=== PATIENT | female | born 1975 | race Caucasian/White ===

== ENCOUNTER → 2016-11-10 | Outpatient (CLI) | payer OTHER ==
[~2016-11-10] MED LIST: ALBUAER2 INH; ATV1 PO; BUPR150T7 PO; CLBCRM30 EXT; CYAN500T PO; ERGO500037 PO; FERR1TAB13 PO; HYDR0.5T PO; MINO1TAB PO; PRLSR20 PO; SULF1TAB92 PO; VENL150C56 PO
--- NOTE | 2016-11-11 05:38 | PAP/PSG TECHNICIAN REPORT ---
[facility] Automobile Mechanic Radiator Polysomnogram Report Study name: None Report date: 11/11/2016 Study date: 11/10/2016 Referring Physician: Jackelyn Mantilla M.D. Name: LOLY SOL Interpreting Physician: Giovanna Mantilla M.D. Date of : 1975 Automobile Mechanic Radiator: GAVI Mccarthy. Sex: Female Age: 41 StudyType: PSG Weight: 401 lbs Height: 41 years, Height 5' 9" Neck Circum:16.25inches BMI: 59.21 Medications: Benadryl 25mg, Vit D, Prilosec 20mg, Feosol 325mg, Minocycline HCl 50mg, Triamcinolole cream, Plaquenil 200mg, Wellbutrin XL 150mg, Effexor XR 150mg, Ativan 0.5mg, Vit B-a2 Patient History Study started on room air with ETCO2 monitoring in room #6. 41 yr old female here tonight for a possible split psg. She had a sleep study done in 2010 which did not show apnea. She has gained weight since then. She snores and does not feel rested. Her ESS=13/24. Her neck circ=16.25inches. Parameters Monitored NPSG: E1-M2, E2-M1, Fp1-M2, Fp2-M1, F3-M2, F4-M2, F4-M1, C3-M2, C4-M2, C4-M1, O1-M2, O2-M2, O2-M1, T3-M2, T4-M1, P3-M2, P4-M1, CHIN1, CHIN2, HR, EKG, Legs, PFLOW, SNOR, FLOW, CFLOW, Tidal Volume, THOR, ABDO, SpO2, PLTH, CPRESS, ETCO2 Wave, ETCO2, pH Sleep Architecture Sleep Stages Time at Lights Off 9:43:33 PM STAGES Time (min.) TST (%) Time at Lights On 5:18:33 AM Wake 107.0 -- Total Recording Time (TRT) 455.00 min. N1 23.5 7 Total Sleep Period (TSP) 414.5 min. N2 228.5 66 Total Sleep Time (TST) 348.0min. N3 45.0 13 Awake Time 107.0 min. REM 51.0 15 Wake after Sleep Onset 76.5 min. Sleep Efficiency (SE) 76 % Sleep Onset Latency (THEODORE) 30.5 min. Number of Stage 1 Shifts None Awakenings 34 Stage Changes 119 Number of REM periods 7 REM 51.0 15 REM Latency 207.5 min. NREM 297.0 85 Body Position Analysis Supine Right Left Side Prone Vertical Total Sleep Time (min.) 188.9 21.5 187.9 209.38 0.0 0.0 Total Sleep Time (%) 40% 6% 54% 60 0% N/A% Total Sleep Time REM (min.) 36.0 0.0 15.0 None 0.0 0.0 Total Sleep Time NREM (min.) 102.6 21.5 172.9 None 0.0 0.0 Intermittent Wake (min.) 50.3 8.4 48.2 None 0.0 0.0 Total Sleep Period (%) 40% None None None None None Arousals Myoclonus (PLM) * Events Count Index Events Count Index Spontaneous 18 3 Events Awake (PLMW) 125 70.1 Respiratory 4 0.7 Events Asleep w/ Arousal (PLMA) 21 3.6 PLM 19 4 Events Asleep w/o Arousal (PLMS) 117 20.2 Snoring 5 1 Total Asleep 138 23.8 Total 46 8 Total 263 35 Respiratory Analysis * CA OA MA CH H RERA Total Count 0 0 0 0 19 0 19 Index 0.0 0.0 0.0 0 3.3 0 3.3 Mean Duration 0.0 0.0 0.0 0.00 23.3 0.0 23.3 Longest Duration 0.0 0.0 0.0 0.00 0.0 0.0 49.8 Respiratory Event Summary Total Supine ~Supine Right Left Prone REM NREM Apneas Count 0 0 0 0 0 N/A 0 0 Index 0.0 0 0 0.0 0.0 N/A 0 0 Hypopneas (4% Desat) Count 19 17 2 0 2 N/A 13 6 Index 3.3 7.4 1 0.0 0.6 N/A 15.3 1.2 Apneas & All Hypopneas Count 19 17 2 0 2 N/A 13 6 Index 3.3 7 1 0 1 N/A 15.3 1.2 Respiratory Events (Online Editor+All Hyp+RERA) Count 19 17 2 0 2 N/A 13 6 Index 3.3 7 1 0.0 0.6 N/A 15.3 1.2 Respiratory Related Arousal Count 4 17 1 0 1 N/A 2 2 Index 0.7 1 0 0 0 N/A 2 0 Snoring Analysis Supine Right Left Prone REM NREM Total Snore duration 21.7 min Snores count 505 16 719 N/A 107 1,133 1,240 Snore mean duration 1.0 Sec Snores index 219 45 230 N/A 125.9 228.9 213.8 TST with snoring (%) 6.2% SpO2 Analysis Total REM NREM Awake <50% 0.0 min. 0.0 min. 0.0 min. 0.0 min. 51 - 60% 0.0 min. 0.0 min. 0.0 min. 0.0 min. 61 - 70% 0.0 min. 0.0 min. 0.0 min. 0.0 min. 71 - 80% 0.0 min. 0.0 min. 0.0 min. 0.0 min. 81 - 90% 4.5 min. 3.6 min. 0.3 min. 0.6 min. 91 - 100% 448.0 min. 47.4 min. 296.4 min. 104.3 min. Average 95 94 95 96 Minimum SpO2 85 86 89 85 Desaturation Event Index 7.3 24.7 2.6 12.9 # Desat. Events below 89% 9 8 N/A 1 Time(%) with Saturation below 89% 0.3 0.3 0.0 0.0 Time(min.) with Saturation below 89% 1.5 1.4 0.0 0.1 Heart Rate Analysis End Tidal CO2 Analysis Min (bpm) Max (bpm) Average (bpm) TSP (mins) % of TSP Awake 67 127 80 Above 55 mmHg 11.8 3.4 NREM 68 92 77 50-55 mmHg 290.6 83.5 REM 66 85 75 45-50 mmHg 45.5 13.1 Overall 66 92 76 40-45 mmHg 0.1 0.0 35-40 mmHg 0.0 0.0 30-35 mmHg 0.0 0.0 Average ETCO2 0.0 Supplemental O2 Values Minimum O2 level: None Value Start Time End Time Automobile Mechanic Radiator Comments Mrs. Sol slept in the right, left and supine positions. No cardiac arrhythmia noted. Some leg movements were noted. No bruxism noted. Snoring was noted and scored as 2 on a scale of 1 through 5. (0=no snoring, 5=snoring loud enough to be heard through a closed door or down the [address] way) She did not use the restroom during the night. She stated that she slept about the same as usual. The final report will be interpreted and signed by a sleep physician. The completed physician report will then be placed in the patient medical record. Therapy (cm H2O) 0 TIB (min.) 455.0 TST (min.) 348.0 Sleep Onset (min.) 30.5 REM Onset From Sleep (min.) 207.5 Sleep Efficiency % 76 Wakefulness (%) 24 Wakefulness (min.) 107.0 NREM 1 (%) 7 NREM 1 (min.) 23.5 NREM 2 (%) 66 NREM 2 (min.) 228.5 NREM 3 (%) 13 NREM 3 (min.) 45.0 REM (%) 15 REM (min.) 51.0 # Arousals 46 Arousal Index 8 # Snore 1,240 Snore Index 213.8 AHI 3.3 AHI Supine 7 AHI Non-Supine 1 NREM AHI 1.2 REM AHI 15.3 RDI 3.3 # Obstructive Apnea 0 # Central Apnea 0 # Mixed Apnea 0 # Hypopneas 19 RERAs 0 Total Respiratory Events 23 Time Below SpO2 89% (min.) 1.4 Mean NREM SpO2 (%) 95 Mean REM SpO2 (%) 94 Mean Sleep SpO2 (%) 95 Min NREM SpO2 (%) 89 Min REM SpO2 (%) 86 Position Supine (min.) 188.9 Position Non-supine (min.) 209.4 LM Index Sleep 23.8 LM Index NREM 21.2 LM Index REM 38.8 Mean Heart Rate (bpm) 76 Min Heart Rate (bpm) 66
--- NOTE | 2016-11-11 17:12 | POLYSOMNOGRAPH REPORT ---
REFERRING PERSON: Dr. Tarsha Mantilla. TATTOO ARTIST: Dominique Story. Ms. Slo is a 42-year-old female sent to the sleep lab for a possible split night sleep study. She had a sleep study performed in 2010, which did not show sleep apnea. She has gained significant amount of weight since that time. She does snore and does not feel rested upon awakening. Her [place] sleepiness scale score on the evening of this study is 13. BMI is a 59.21. Following the technical and digital specifications of the [place] [employer] (AASM) a standard diagnostic polysomnogram was performed monitoring EEG, EOG, EMG (chin and leg deviations), oxygen saturation, body position, digital video, respiratory effort and airflow. The sleep Stage and event scoring was based on the AASM Manual for the Scoring of Sleep and Associated Events 2007 edition. Apneas are defined as a drop in the peak thermal sensor excursion by >90% of baseline for at least 10 seconds. Hypopneas were scored using the 4% oxygen desaturation rule (4A-[employer]) and a decrease in the nasal pressure excursions by >30% of baseline for at least 10 seconds. Respiratory effort-related arousal (RERA's) is defined as a sequence of breaths lasting at least 10 seconds characterized by increasing respiratory effort or flattening of the nasal pressure waveform leading to an arousal from sleep when the sequence of breaths does not meet criteria for an apnea or hypopnea. Apnea Hypopnea index (AHI) is defined as the number of apneas and hypopneas occurring in an hour of sleep. Respiratory disturbance index (RDI) is defined as the number of apneas, hypopneas, and RERA's occurring in an hour of sleep. Ms. Sol' total sleep period time was 414.5 minutes. Total sleep time was 348 minutes. Sleep efficiency was 76%. Latency to sleep onset was 30.5 minutes with wake after sleep onset of 76.5 minutes. Total non-REM sleep time was 297 minutes. She spent 7% of that time in N1 sleep, 66% in N2 sleep and 13% in N3 sleep. REM latency was 207.5 minutes, which is prolonged. Total REM sleep time was 51 minutes or 15% of total sleep time. There were 46 cortical arousals from sleep. Eighteen of these arousals were spontaneous, 4 were due to respiratory events, 19 due to periodic limb movements of sleep and 5 were due to snoring. There were 138 periodic limb movements noted on this test. Limb movement index was 23.8 and limb movement with arousal index was 3.6. There was no central obstructive or mixed apnea on this test. There were 19 hypopneas and no RERA. Apnea-hypopnea index was 3.3, which is normal. Supine AHI was 7 and REM AHI was 15.3. 1240 snoring events were recorded. Total sleep time with snoring was 6.2%. Mean saturation was 95%. Saturations were less than 89% for 1.5 minutes of recorded time. There was no cardiac ectopy noted on this study. Ms. Sol' heart rate ranged from a low of 66 beats per minute to a high of 92 beats per minute during sleep. End-tidal CO2 was recorded on this test. End-tidal CO2s were above 55 mmHg for 3.4% of total sleep period time, between 50 and 55 mmHg for 83.5% and between 45 and 50 mmHg for 13.1% of total sleep period time. This is suspicious for obesity hypoventilation. IMPRESSION AND PLAN: A 41-year-old female without evidence of sleep disordered breathing or nocturnal hypoxemia on this sleep study. End-tidal CO2 data does suggest this patient may be at risk for obesity hypoventilation. 1. This patient may benefit from an ABG to confirm hypercapnia upon awakening. Should obesity hypoventilation be confirmed, this patient may benefit from positive airway pressure therapy at home to help prevent chronic hypercapnic respiratory failure. Clinical correlation is needed. [facility]
== END | disposition home or self-care (01) ==
LOC: C.NEUR 21:00
PROVIDERS: ATTEND Family Medicine
DX: G47.33 Obstructive sleep apnea (adult) (pediatric) (principal); E66.01 Morbid (severe) obesity due to excess calories; R06.83 Snoring; G47.10 Hypersomnia, unspecified

== ENCOUNTER 2017-07-01 11:01 | Emergency (ER) | payer OTHER ==
[~2017-07-01] VITALS: Ht 170.2 cm; Wt 188.0 kg
[2017-07-01 11:12] VITALS: TEMP 37; Ht 170.2 cm; Wt 188.0 kg
[2017-07-01] MEDS ORDERED: IBUPROFEN 600 MG TAB PO STA (11:25)
--- NOTE | 2017-07-01 11:29 | EMERGENCY ROOM VISIT NOTE ---
History Report prepared by Viral: Kevin Galvan Under the Supervision of: Dr. Jayy Louise M.D. First contact with patient: 11:12 Chief Complaint: KNEEPAIN Stated Complaint: KNEE PAIN History of Present Illness The patient is a 42 year old female who presents to the Emergency Room with complaints of persistent pain in her left knee that began this morning at 0930, 1 hour and 45 minutes ago. The patient states that she bent down onto her left knee and experienced a "burning" pain in the joint when she stood up. The patient has an appointment scheduled to see Yumiko's office tomorrow morning. She denies any traumatic falls or injuries. Source of History: patient Onset: 1 hour and 45 minutes ago Position: knee (left) Quality: burning Timing: other (Persistent) Note: Denies traumatic falls Review of Systems See HPI for pertinent positives & negatives. A total of 10 systems reviewed and were otherwise negative. Past Medical & Surgical Medical Problems: (1) ANXIETY STATE NOS (2) ASTHMA, UNSPECIFIED (3) DEPRESSIVE DISORDER NEC (4) DIAB LUI WO COMPL, TYPE II OR UNSPEC TYPE, NOT UNCNTRLD (5) MORBID OBESITY (6) SYST LUPUS ERYTHEMATOSIS Family History Diabetes mellitus Social History Smoking Status: Never Smoker Alcohol Use: none Marital Status: Occupation Status: unemployed Current/Historical Medications Scheduled Albuterol (Ventolin Hfa), 2 PUFF INH PRN Bupropion Hcl (Wellbutrin Sr), 150 MG PO QAM Clobetasol Propionate (Clobetasol Propionate Cream 0.05%), 1 APPLN EXT BID PRN Cyanocobalamin (Vitamin B-12), 500 MCG PO DAILY Ergocalciferol (Vitamin D 43317 Unit), 50,000 UNIT PO 2XWK Ferrous Sulfate (Kp Ferrous Sulfate), 1 TAB PO DAILY Hydroxychloroquine Sulfate (Plaquenil), 400 MG PO QAM Minocycline Hcl (Dynacin), 50 MG PO DAILY Omeprazole (Prilosec), 20 MG PO DAILY Trimethoprim/Sulfamethoxazole (Bactrim 400MG/80MG), 1 TAB PO Q12H Venlafaxine Hcl (Effexor Extended Rel), 150 TAB PO QAM Scheduled PRN Lorazepam (Ativan *), 0.5 MG PO DAILY PRN for Anxiety/Agitation Oxycodone/Acetaminophen 5MG/325MG (Percocet 5MG/325MG), 1-2 TAB PO Q4H PRN for Pain Allergies Coded Allergies: Adhesives (Verified Allergy, Unknown, ., 07/10/15) Penicillins (Verified Allergy, Unknown, ., 07/10/15) Physical Exam Vital Signs Date Time Temp Pulse Resp B/P (MAP) Pulse Ox O2 Delivery O2 Flow Rate FiO2 07/01/17 12:45 75 16 111/75 96 07/01/17 11:12 37.0 81 16 109/69 95 Room Air Physical Exam GENERAL: Awake, alert, well-appearing, in no acute distress HENT: Normocephalic, atraumatic. Oropharynx unremarkable. EYES: Normal conjunctiva. Sclera non-icteric. NECK: Supple. No nuchal rigidity. FROM. No JVD. RESPIRATORY: Clear to auscultation. CARDIAC: Regular rate, normal rhythm. Extremities warm and well perfused. Pulses equal. ABDOMEN: Soft, non-distended. No tenderness to palpation. No rebound or guarding. No masses. RECTAL: Deferred. MUSCULOSKELETAL: Chest examination reveals no tenderness. The back is symmetrical on inspection without obvious abnormality. There is no CVA tenderness to palpation. No joint edema. LOWER EXTREMITIES: Calves are equal size bilaterally and non-tender. No edema. No discoloration. NEURO: Normal sensorium. No sensory or motor deficits noted. SKIN: No rash or jaundice noted. Medical Decision & Procedures ER Provider Diagnostic Interpretation: Radiology results as stated below per my review and radiologist interpretation: KNEE 1 OR 2 VIEWS ROUTINE HISTORY: 42 years-old Female Pt c/o left knee pain acute left knee pain COMPARISON: None available TECHNIQUE: 2 views of the left knee FINDINGS: Moderate patellofemoral with mild medial and lateral compartment osteoarthritis. There is slight medial subluxation of the distal femur in relation to the proximal tibia by approximately 7 mm. Dystrophic appearing calcifications are seen adjacent to the medial aspect of the medial femoral condyle. Small joint effusion with mild soft tissue prominence. No acute fracture or dislocation. IMPRESSION: 1. Small joint effusion without acute fracture or dislocation. 3. Tricompartmental osteoarthritis, moderate within the patellofemoral joint. The above report was generated using voice recognition software. It may contain grammatical, syntax or spelling errors. Electronically signed by: Sascha Valentin M.D. 07/01/2017 12:00 PM Dictated Date/Time: 07/01/2017 11:59 AM Medications Administered Medications (Trade) Dose Ordered Sig/Christopher Route Start Time Stop Time Status Last Admin Dose Admin Ibuprofen (Motrin Tab) 600 mg NOW STAT PO 07/01/17 11:25 07/01/17 11:26 DC 07/01/17 11:46 600 MG Oxycodone/ Acetaminophen (Percocet 5-325mg Tab) 2 tab NOW ONCE PO 07/01/17 11:30 07/01/17 11:31 DC 07/01/17 11:47 2 TAB ED Course 1114: Past medical records reviewed. The patient was evaluated in room C7. A complete history and physical examination was performed. 1125; Ordered Ibuprofen 600 mg PO. 1130: Ordered Oxycodone/Acetaminophen 2 tablets PO. 1235: Upon reexamination the patient is resting in bed. I discussed results and treatment plan with the patient. She verbalizes agreement and understanding. The patient is ready for discharge. Medical Decision Differential diagnosis: Etiologies such as fracture, dislocation, neurovascular compromise, compartment syndrome, soft tissue injury, as well as others were entertained. This is a 42-year-old female with a history of osteoarthritis the presents emergency department complaining of left knee pain after twisting suddenly. Patient has no evidence of cellulitis or knee effusion on examination. She was sent for x-rays which did not show any evidence of bone fracture dislocation. The patient already has a follow-up appointment tomorrow with her orthopedic surgeon. She was given ibuprofen and Percocet here in the emergency department. She was placed in an Tam wrap and I recommended a walker for her use to avoid further falls. Patient will follow up with orthopedics tomorrow. Medication Reconcilliation Current Medication List: was personally reviewed by me Blood Pressure Screening Patient's blood pressure: Normal blood pressure Impression Primary Impression: Knee pain Scribe Attestation The scribe's documentation has been prepared under my direction and personally reviewed by me in its entirety. I confirm that the note above accurately reflects all work, treatment, procedures, and medical decision making performed by me. Departure Information Dispostion Home / Self-Care Prescriptions Oxycodone/Acetaminophen 5MG/325MG (PERCOCET 5MG/325MG) Tab 1-2 TAB PO Q4H Y for Pain, #14 TAB Prov: Jayy Louise MD 07/01/17 Referrals Roldan Quiroz M.D. (PCP) Forms HOME CARE DOCUMENTATION FORM, IMPORTANT VISIT INFORMATION Patient Instructions My [facility] Additional Instructions Follow up with Dr Gaxiola's office You received narcotic or benzodiazepene medication while in the emergency room today. This is an addictive medication that may cause drowziness as well as constipation. Do not drive, operate heavy machinery, or drink alcohol under the influence of this medication. Take 600 mg Ibuprofen every 6 hours Take Percocet for breakthrough pain You have been examined and treated today on an emergency basis only. This is not a substitute for, or an effort to provide, complete comprehensive medical care. It is impossible to recognize and treat all injuries or illnesses in a single emergency department visit. It is therefore important that you follow up closely with DR Quiroz. Call as soon as possible for an appointment. Thank you for your time and consideration. I look forward to speaking with you again soon. Please don't hesitate to call us if you have any questions. Problem Qualifiers Primary Impression: Knee pain Chronicity: acute Laterality: left Qualified Codes: M25.562 - Pain in left knee
[2017-07-01] MEDS ORDERED: OXYCODONE/ACETAMINOPHEN 5-325 TAB PO ONE (11:30)
--- NOTE | 2017-07-01 12:02 | DIAGNOSTIC IMAGING REPORT ---
L KNEE 1 OR 2 VIEWS ROUTINE HISTORY: 42 years-old Female Pt c/o left knee pain acute left knee pain COMPARISON: None available TECHNIQUE: 2 views of the left knee FINDINGS: Moderate patellofemoral with mild medial and lateral compartment osteoarthritis. There is slight medial subluxation of the distal femur in relation to the proximal tibia by approximately 7 mm. Dystrophic appearing calcifications are seen adjacent to the medial aspect of the medial femoral condyle. Small joint effusion with mild soft tissue prominence. No acute fracture or dislocation. IMPRESSION: 1. Small joint effusion without acute fracture or dislocation. 3. Tricompartmental osteoarthritis, moderate within the patellofemoral joint. The above report was generated using voice recognition software. It may contain grammatical, syntax or spelling errors. Electronically signed by: Sascha Valentin M.D. 07/01/2017 12:00 PM Dictated Date/Time: 07/01/2017 11:59 AM
[2017-07-01] MEDS ORDERED: OXYC-57 PO (12:30)
[2017-07-01 12:45] VITALS: BP 111/75; PULSE 75; O2SAT 96
== END 2017-07-01 13:00 | disposition home or self-care (01) ==
LOC: EDBD 11:01 → C.EDC 11:02
DX: M25.562 Pain in left knee (principal); F41.9 Anxiety disorder, unspecified; J45.909 Unspecified asthma, uncomplicated; F32.9 Major depressive disorder, single episode, unspecified; E11.9 Type 2 diabetes mellitus without complications; Z79.899 Other long term (current) drug therapy; Z91.048 Other nonmedicinal substance allergy status; Z88.0 Allergy status to penicillin

== ENCOUNTER 2020-10-04 11:16 | Inpatient (IN) ==
[2020-10-04] MEDS ORDERED: SODIUM CHLORIDE 0.9% 500 ML IV ONE (12:22)
[2020-10-04] MEDS ORDERED: ONDANSETRON INJ 2 MG/ML 2 ML VIAL IV STA (12:26)
--- NOTE | 2020-10-04 12:29 | Emergency Department Note ---
Impression & Plan Pneumonia due to 2019 novel coronavirus, Chest pain ED Provider Note NAME: LOLY MENDOZA AGE: 45 SEX: F : 1975 ARRIVES VIA: Walk-In INFORMANT: Patient, ED PROVIDER(S): George Leiva DO CHIEF COMPLAINT: Chest pain HPI: The patient is a 45-year-old female who presented to the emergency department for an evaluation of chest pain. The patient describes epigastric and lower chest pain which began over the last few days. The patient started having flulike symptoms last Friday. She started with sore throat and cough. She was seen by her primary care physician on Friday and was tested for COVID- 19. The patient was positive for COVID-19. She states that over the course the last few days her condition has significantly worsened. She started to notice difficulty breathing and shortness of breath. She also notices pain with deep inspiration. She has pain in the lower chest as well as in the epigastric region. She also complains of nausea. She has had no diarrhea. She denies having any recent fevers. She called her primary care physician today because of worsening symptoms and was sent to the emergency department. The patient states symptoms worsen with exertion as well as deep breathing. ROS: See above HPI for pertinent positives & negatives. A total of 10 systems reviewed and were otherwise negative. PAST MEDICAL HISTORY: See Below PAST SURGICAL HISTORY: See Below FAMILY HISTORY: See Below SOCIAL HISTORY: See Below HOME MEDICATIONS: See Below ALLERGIES: See Below VITALS: See Below PHYSICAL EXAMINATION: GENERAL: The patient is awake and alert. The patient is somewhat anxious appearing. EYES: The conjunctivae are clear. The pupils are round and reactive. EARS, NOSE, MOUTH AND THROAT: The nose is without any evidence of any deformity. NECK: The neck is nontender and supple. RESPIRATORY: Splinting respirations were noted. Diminished breath sounds are noted throughout. CARDIOVASCULAR: Regular rate and rhythm noted there no murmurs rubs or gallops normal S1 normal S2. GASTROINTESTINAL: The abdomen is soft and mildly distended. There is tenderness to palpation in the upper abdomen but no guarding rigidity. MUSCULOSKELETAL/EXTREMITIES: There is no evidence of gross deformity full range of motion is noted in the hips and shoulders. SKIN: Skin is warm and dry. Pedal edema was noted bilaterally. NEUROLOGIC: Patient is awake alert and oriented x3. MEDICAL DECISION MAKING: The patient is a 45-year-old female who presented to the emergency department for an evaluation of difficulty breathing. The patient was diagnosed with COVID-19 infection on Friday. Symptoms continue to worsen and the patient has been experiencing chest pain as well as difficulty breathing. The patient was found to have significant pneumonia on chest x-ray. Given her risk factors including her BMI I do feel the patient would be a better candidate for inpatient management. She was treated with IV Decadron. She was treated with a small IV fluid bolus. I discussed her case with the on-call [facility]ist. They have agreed to evaluate the patient in the emergency department for further management and disposition. The patient was placed on submental oxygen. Triage Nursing notes reviewed. Prior medical records reviewed Vital Signs: reviewed and remarkable for no significant abnormalities Differential diagnosis: Reactive airway disease, pneumonia, pneumothorax, COPD, CHF, infections, cardiac ischemia, pulmonary embolism, musculoskeletal, gastrointestinal, as well as other pathologies. ER treatment provided: See below Diagnostics interpreted by me: ECG: EKG was obtained in the emergency department. My interpretation is normal sinus rhythm at 61 bpm. Poor R wave progression was noted. LVH was noted by voltage criteria. There was no acute ST segment abnormalities noted. Nonspecif ic interventricular conduction delay was noted. This was compared to a tracing from February [id number]. Cardiac Monitoring: An order was placed for continuous cardiac monitoring. The monitor shows a rate of 78 bpm with sinus rhythm. Laboratory studies: As stated above and show below. Imaging studies: See below Consultation(s): I discussed this case with Nette who is on-call for the [facility]ist group. Past Med/Surg History Medical History CKD (chronic kidney disease) GERD (gastroesophageal reflux disease) Lupus Lymphedema Surgical History No significant past surgical history Social History Smoking Status: Never smoker Hx Alcohol Use: No Preferred Language: German marital status: Current Living Situation: Spouse and Family current occupational status: unemployed Feels Safe at Home: Yes Allergies Allergies Allergy/AdvReac Type Severity Reaction Status Date / Time adhesive Allergy Unknown . Verified 02/06/20 14:20 Penicillins Allergy Unknown . Verified 02/06/20 14:20 Home Meds Home Medications Medication Instructions Recorded Confirmed bupropion HCl 150 mg 24 hr tablet, 150 mg PO DAILY 10/04/20 10/04/20 extended release lorazepam 0.5 mg tablet 0.5 mg PO DAILY PRN 10/04/20 10/04/20 omeprazole 20 mg capsule,delayed 20 mg PO DAILY 10/04/20 10/04/20 release venlafaxine 150 mg 150 mg PO DAILY 10/04/20 10/04/20 capsule,extended release 24 hr Results & Data (ED) Vital Signs Vital Signs - 24 hr 10/04/20 11:23 Temperature 36.9 C Temperature Source Temporal Artery Scan Pulse Rate 78 Respiratory Rate 20 Respiratory Effort / Characteristics Short of Breath Blood Pressure 103/67 Blood Pressure Mean 79 Blood Pressure Position Sitting Pulse Oximetry 92 Oxygen Delivery Method Room Air Sepsis Recent Fever Within 48 Hours No Sepsis New/Unexplained Change in Mental Status N/A Sepsis Action Taken by Nursing No Action Required Home Medications Current Medication List: was personally reviewed by me Laboratory Data Attestation: I reviewed the patient's lab results. Result diagrams: 10/04/20 13:30 10/04/20 13:30 Lab Results 10/04/20 10/04/20 10/04/20 Range/Units 13:26 13:30 13:30 WBC 3.90 L (4.8-10.8) K/uL RBC 5.07 (4.2-5.4) M/uL Hgb 12.5 (12.0-16.0) g/dL Hct 39.4 (37-47) % MCV 77.7 L (80-100) fL MCH 24.7 L (25-34) pg MCHC 31.7 L (32-36) g/dL RDW Std Deviation 43.5 (36.4-46.3) fL RDW Coeff of Dionicio 15.3 H (11.5-14.5) % Plt Count 220 (130-400) K/uL MPV 9.3 (7.4-10.4) fL Immature Gran % (Auto) 0.3 % Neut % (Auto) 59.7 % Lymph % (Auto) 30.5 % [place] % (Auto) 9.2 % Eos % (Auto) 0.0 % Baso % (Auto) 0.3 % Neut # (Auto) 2.33 (1.4-6.5) K/uL Lymph # (Auto) 1.19 L (1.2-3.4) K/uL [place] # (Auto) 0.36 (0.11-0.59) K/uL Eos # (Auto) 0.00 (0-0.5) K/uL Baso # (Auto) 0.01 (0-0.2) K/uL Immature Gran # (Auto) 0.01 (0.00-0.02) K/uL Echinocytes 1+ PT (9.0-12.0) Seconds INR (0.9-1.1) APTT (21.0-31.0) Seconds PTT Ratio D-Dimer (0-500) ug/L FEU Sodium 137 (136-145) mmol/L Potassium 3.2 L (3.5-5.1) mmol/L Chloride 105 (98-107) mmol/L Carbon Dioxide 26 (21-32) mmol/L Anion Gap 6.0 (3-11) BUN 9 (7-18) mg/dl Creatinine 1.31 H (0.6-1.2) mg/dl Est Cr Clr Drug Dosing Not Reportable Est GFR ( Amer) 56.5 ml/min Est GFR (Non-Af Amer) 48.7 ml/min BUN/Creatinine Ratio 7.0 L (10-20) Glucose 106 H (70-99) mg/dl Calcium 8.5 (8.5-10.1) mg/dl Total Bilirubin 0.6 (0.2-1) mg/dl AST 36 (15-37) U/L ALT 22 (12-78) U/L Alkaline Phosphatase 68 (45-117) U/L Troponin I < 0.015 (0-0.045) ng/ml Total Protein 7.8 (6.4-8.2) gm/dl Albumin 3.3 L (3.4-5.0) gm/dl Globulin 4.5 H (2.5-4.0) gm/dl Albumin/Globulin Ratio 0.7 L (0.9-2) Lipase 115 (73-393) U/L COVID-19 Eval Order Covid19 at [facility] 10/04/20 Range/Units 13:30 WBC (4.8-10.8) K/uL RBC (4.2-5.4) M/uL Hgb (12.0-16.0) g/dL Hct (37-47) % MCV (80-100) fL MCH (25-34) pg MCHC (32-36) g/dL RDW Std Deviation (36.4-46.3) fL RDW Coeff of Dionicio (11.5-14.5) % Plt Count (130-400) K/uL MPV (7.4-10.4) fL Immature Gran % (Auto) % Neut % (Auto) % Lymph % (Auto) % [place] % (Auto) % Eos % (Auto) % Baso % (Auto) % Neut # (Auto) (1.4-6.5) K/uL Lymph # (Auto) (1.2-3.4) K/uL [place] # (Auto) (0.11-0.59) K/uL Eos # (Auto) (0-0.5) K/uL Baso # (Auto) (0-0.2) K/uL Immature Gran # (Auto) (0.00-0.02) K/uL Echinocytes PT 10.8 (9.0-12.0) Seconds INR 1.1 (0.9-1.1) APTT 28.9 (21.0-31.0) Seconds PTT Ratio 1.1 D-Dimer 740 H* (0-500) ug/L FEU Sodium (136-145) mmol/L Potassium (3.5-5.1) mmol/L Chloride (98-107) mmol/L Carbon Dioxide (21-32) mmol/L Anion Gap (3-11) BUN (7-18) mg/dl Creatinine (0.6-1.2) mg/dl Est Cr Clr Drug Dosing Est GFR ( Amer) ml/min Est GFR (Non-Af Amer) ml/min BUN/Creatinine Ratio (10-20) Glucose (70-99) mg/dl Calcium (8.5-10.1) mg/dl Total Bilirubin (0.2-1) mg/dl AST (15-37) U/L ALT (12-78) U/L Alkaline Phosphatase (45-117) U/L Troponin I (0-0.045) ng/ml Total Protein (6.4-8.2) gm/dl Albumin (3.4-5.0) gm/dl Globulin (2.5-4.0) gm/dl Albumin/Globulin Ratio (0.9-2) Lipase (73-393) U/L COVID-19 Eval Order Administered Medications Remdesivir 200 mg/ Sodium (Chloride) 250 mls @ 125 mls/hr IV ONE STA; Protocol Stop: 10/04/20 15:50 Last Admin: 10/04/20 14:27 Dose: 125 mls/hr Documented by: [id number] Discontinued Medications Dexamethasone Sodium Phosphate (DexamethasonePf 10 Mg/Ml Vial) 10 mg IV NOW ONE Stop: 10/04/20 13:14 Last Admin: 10/04/20 13:38 Dose: 10 mg Documented by: [id number] Sodium Chloride (Nss) 500 mls @ 999 mls/hr IV .Q31M ONE Stop: 10/04/20 12:52 Last Infusion: 10/04/20 14:27 Dose: 0 mls/hr Documented by: [id number] Admin: 10/04/20 13:38 Dose: 999 mls/hr Documented by: [id number] Ondansetron HCl (Ondansetron Inj 2 Mg/Ml 2 Ml Vial) 4 mg IV NOW STA Stop: 10/04/20 12:27 Last Admin: 10/04/20 13:38 Dose: 4 mg Documented by: [id number] Imaging Data Radiologist's Impression: Chest X-Ray 10/04/20 12:22 SINGLE VIEW CHEST CLINICAL HISTORY: Atypical chest pain. FINDINGS: An AP, portable, upright chest radiograph is compared to study dated 12/06/2017. The heart is enlarged. Multifocal airspace consolidation is seen throughout both lungs. The lungs and pleural spaces are clear. No large pleural effusion or pneumothorax is seen. The bony thorax is grossly intact. IMPRESSION: 1. Multifocal airspace consolidation is seen throughout both lungs. This could represent multifocal pneumonia and/or pulmonary edema. Clinical correlation will be required and radiographic follow-up to resolution is recommended. 2. Cardiomegaly. ACT 112: Negative or not required by law. Electronically signed by: Steven Hameed M.D. 10/04/2020 1:04 PM Discharge Plan Visit Data Chief Complaint: Illness Stated Complaint: COVID+,SOB,BAD HEADACHE,PAIN IN CHEST ED Provider: George Leiva Discharge Problem: Pneumonia due to 2019 novel coronavirus, Chest pain Patient Disposition: Being Evaluated by Hospitalist Condition: Good Forms Stand Alone Forms: My [facility] Prescriptions Prescriptions: No Action omeprazole 20 mg capsule,delayed release(DR/EC) 20 mg PO DAILY RF: 0 venlafaxine 150 mg capsule,extended release 24hr 150 mg PO DAILY RF: 0 lorazepam 0.5 mg Tablet 0.5 mg PO DAILY PRN (Reason: Anxiety) RF: 0 bupropion HCl 150 mg tablet extended release 24 hr 150 mg PO DAILY RF: 0 Referrals Referrals: Roldan Quiroz MD [Primary Care Provider] - Discharge Problem: Chest pain Qualifiers: Chest pain type: unspecified Qualified Code(s): R07.9 - Chest pain, unspecified
--- NOTE | 2020-10-04 13:05 | XRay Report ---
SINGLE VIEW CHEST CLINICAL HISTORY: Atypical chest pain. FINDINGS: An AP, portable, upright chest radiograph is compared to study dated 12/06/2017. The heart is enlarged. Multifocal airspace consolidation is seen throughout both lungs. The lungs and pleural s paces are clear. No large pleural effusion or pneumothorax is seen. The bony thorax is grossly intact . IMPRESSION: 1. Multifocal airspace consolidation is seen throughout both lungs. This could represent multifocal p neumonia and/or pulmonary edema. Clinical correlation will be required and radiographic follow-up to resolution is recommended. 2. Cardiomegaly. ACT 112: Negative or not required by law. Electronically signed by: Steven Hameed M.D. 10/04/2020 1:04 PM
[2020-10-04] MEDS ORDERED: dexAMETHasone**PF** 10 MG/ML VIAL IV ONE (13:13)
[2020-10-04 13:49] LABS: Hematocrit (blood only) 39.4 % (37-47); Hemoglobin 12.5 g/dL (12.0-16.0); Mean Corpuscular Hemoglobin 24.7 pg (25-34); Mean Corpuscular Hgb Conc 31.7 g/dL (32-36); Mean Corpuscular Volume 77.7 fL (80-100); Mean Platelet Volume 9.3 fL (7.4-10.4); Platelet Count 220 K/uL (130-400); RDW Coefficient of Variation 15.3 % (11.5-14.5); RDW Standard Deviation 43.5 fL (36.4-46.3); Red Blood Count 5.07 M/uL (4.2-5.4)
[2020-10-04] MEDS ORDERED: REMDESIVIR 200 MG in SODIUM CHLORIDE 0.9% 210 ML IV STA (13:51)
[2020-10-04 14:01] LABS: INR 1.1 (0.9-1.1); Partial Thromboplastin Ratio 1.1; Partial Thromboplastin Time 28.9 Seconds (21.0-31.0); Prothrombin Time 10.8 Seconds (9.0-12.0)
[2020-10-04 14:08] LABS: Alanine Aminotransferase 22 U/L (12-78); Albumin Level 3.3 gm/dl (3.4-5.0); Aspartate Aminotransferase 36 U/L (15-37); Basophils # (auto) 0.01 K/uL (0-0.2); Basophils % (auto) 0.3 %; Blood Urea Nitrogen 9 mg/dl (7-18); Calcium 8.5 mg/dl (8.5-10.1); Carbon Dioxide 26 mmol/L (21-32); Chloride 105 mmol/L (98-107); Echinocytes 1+; Est GFR (African American) 56.5 ml/min; Est GFR (Non-African American) 48.7 ml/min; Glucose 106 mg/dl (70-99); Immature Granulocytes # (auto) 0.01 K/uL (0.00-0.02); Immature Granulocytes % (auto) 0.3 %; Lipase 115 U/L (73-393); Lymphocytes # (auto) 1.19 K/uL (1.2-3.4); Lymphocytes % (auto) 30.5 %; Monocytes # (auto) 0.36 K/uL (0.11-0.59); Monocytes % (auto) 9.2 %; Neutrophils # (auto) 2.33 K/uL (1.4-6.5); Neutrophils % (auto) 59.7 %; Potassium 3.2 mmol/L (3.5-5.1); Sodium 137 mmol/L (136-145)
[2020-10-04 14:12] LABS: Albumin Globulin Ratio 0.7 (0.9-2); Alkaline Phosphatase 68 U/L (45-117); Bilirubin,Total 0.6 mg/dl (0.2-1); Globulin 4.5 gm/dl (2.5-4.0); Total Protein 7.8 gm/dl (6.4-8.2); Troponin I < 0.015 ng/ml (0-0.045)
[2020-10-04 14:23] LABS: D Dimer 740 ug/L FEU (0-500)
[2020-10-04] MEDS ORDERED: POTASSIUM CHLORIDE CRTAB 20 MEQ TABCR PO STA (14:40)
--- NOTE | 2020-10-04 15:20 | History & Physical Report ---
Date of Service October 04, 2020 Assessment & Plan (1) Pneumonia due to 2019 novel coronavirus: (2) Chest pain: (3) Hypokalemia: (4) BRADEN (acute kidney injury): (5) Lymphedema: (6) Morbid obesity due to excess calories: Plan: Remdesivir, Dex, Inhalers, Continue OP meds, monitor daily labs, O2 PRN, Spirometry, IVF, replace K, Tessalon Perles, CTA chest for elevated DDimer History of Present Illness Chief Complaint: CP and SOB Primary Care Provider: Roldan Quiroz MD 45-year-old female who presented to the emergency department today for chest pain. The patient pointed to her epigastric area and lower chest. The pain was about 5/10 and worse c deep inspiration. It started a few days ago and got a lit tle worse each day. She also c/o flulike symptoms last Friday. She has a sore throat and cough. She was seen by her primary care physician on Friday and was tested for COVID-19 which came back positive. notes difficulty breathing and shortness of breath. She also complains of nausea, but no vomiting and had some diarrhea today. She called her PCP today who referred to the ER. Patient is not vaccinated. Allergies Allergy/AdvReac Type Severity Reaction Status Date / Time adhesive Allergy Unknown . Verified 02/06/20 14:20 Penicillins Allergy Unknown . Verified 02/06/20 14:20 Home Medications Medication Instructions Recorded Confirmed Type bupropion HCl 150 mg 24 hr tablet, 150 mg PO DAILY 10/04/20 10/04/20 History extended release lorazepam 0.5 mg tablet 0.5 mg PO DAILY PRN 10/04/20 10/04/20 History omeprazole 20 mg capsule,delayed 20 mg PO DAILY 10/04/20 10/04/20 History release venlafaxine 150 mg 150 mg PO DAILY 10/04/20 10/04/20 History capsule,extended release 24 hr Past Med/Surg History Medical History CKD (chronic kidney disease) GERD (gastroesophageal reflux disease) Lupus Lymphedema Surgical History No significant past surgical history Social History Smoking Status: Never smoker Hx Alcohol Use: No Preferred Language: Belarusian marital status: Current Living Situation: Spouse and Family current occupational status: unemployed Feels Safe at Home: Yes Review of Systems Review of Systems: ROS-No Headache, No Visual Changes, +Nausea, No Vomiting, No Fever, No Chills, No Neck Pain or Stiffness, +Epigastric and lower mid Chest Pain, +Pleuritic CP as well, No Palpitations, + SOB, +COREA, + Cough, No Sputum, No Wheezing, No Abdominal Pain, + Diarrhea, No Hematemesis, No Hemoptysis, No Unexpected Weight Loss, No Flank pain, No Melena, No Hematochezia, No Frequency, No Urgency, No Burning, No Hematuria, No Rashes, No Diaphoresis. Appetite is Normal Physical Exam Physical Exam: Physical Exam Gen-AAO x 3, NAD, Afebrile, Obese Head-NCAT, EOMI, PERRLA, Anicteric Sclera, No Posterior Pharyngeal Erythema Neck-Supple, No JVD, No Thyromegaly, No Masses, No LAD, No Bruits Lungs-Clear to Auscultation Bilaterally, No Rales, No Rhonchi, No Wheezing, No Crepitus Chest-No S4, +S1, +S2, No S3, No Murmurs, No Rubs, No Gallops, No Ectopy, +CP c Deep inspiration Abdomen-Soft, Obese, Bowel Sounds Present, Non Tender, Non Distended, No Hepato megaly, No Splenomegaly, No Palpable Masses, No Rebound, No Rigidity, No Guarding Musculoskeletal-Full Range of Motion Bilaterally, No CVAT Extremities-No Cyanosis, No Clubbing, Bilaterl LE Lymphedema Nuero-Cranial Nerves II-XII grossly intact, Motor WNL, DTRs WNL, Strength WNL, Non Focal Psych-Normal Mood Results & Data Results & Data ([facility]) Vital Signs (Past 12 Hours) Vital Signs Temp Pulse Resp BP Pulse Ox 10/04/20 14:30 62 20 102/66 93 10/04/20 14:17 61 20 124/69 95 10/04/20 11:23 36.9 C 78 20 103/67 92 Laboratory Results Allergies adhesive Allergy (Unknown, Verified 02/06/20 14:20) . Penicillins Allergy (Unknown, Verified 02/06/20 14:20) . Height/Weight/Isolation Height 5 ft 9 in Weight 199.8 kg Isolation Type Airborne Precautions Chemistry 10/04/20 13:30 Sodium 137 Potassium 3.2 L Chloride 105 Carbon Dioxide 26 Anion Gap 6.0 BUN 9 Creatinine 1.31 H Glucose 106 H Code Status & VTE Plan Code Status Full VTE Prophylaxis Plan VTE Prophylaxis will be ordered: Yes (1) Chest pain Chest pain type: unspecified Qualified Code(s): R07.9 - Chest pain, unspecified
[2020-10-04] MEDS ORDERED: POTASSIUM CHLORIDE 10 MEQ TABCR PO ONE (17:22)
[2020-10-04] MEDS ORDERED: ACETAMINOPHEN 325 MG TAB PO PRN (19:13)
[2020-10-04] MEDS ORDERED: ONDANSETRON INJ 2 MG/ML 2 ML VIAL IV PRN (19:13)
[2020-10-04] MEDS ORDERED: POLYETHYLENE (MIRALAX) 17 GM PACK PO PRN (19:13)
[2020-10-04] MEDS ORDERED: ALUMINUM/MAGNESIUM SUSP 30 ML UDC PO PRN (19:13)
[2020-10-04] MEDS ORDERED: LORazepam 0.5 MG TAB PO PRN (19:13)
[2020-10-04] MEDS ORDERED: MAGNESIUM HYDROXIDE SUSP 30 ML UDC PO PRN (19:13)
[2020-10-04] MEDS ORDERED: NSS + 20MEQ KCL 20 MEQ/1,000 ML BAG IV SCH (20:00)
[2020-10-04] MEDS ORDERED: OPTIRAY 320 125ml IV ONE (20:36)
[2020-10-04] MEDS: ENOXAPARIN INJ 40 MG/0.4 ML SYR SQ SCH (21:17)
[2020-10-04] MEDS: BENZONATATE 100 MG CAPSULE PO SCH (21:17)
--- NOTE | 2020-10-04 21:34 | CT Scan Report ---
CT ANGIOGRAM OF THE CHEST CLINICAL HISTORY: Dyspnea. COMPARISON STUDY: Chest x-ray dated 10/04/2020. Chest CT dated 04/29/2010. TECHNIQUE: Following the IV administration of 119 cc of Optiray 320, CT angiogram of the chest was pe rformed from the upper abdomen to the thoracic inlet utilizing the pulmonary embolus protocol. Images are reviewed in the axial, sagittal, and coronal planes. 3-D MIPS images are created and assessed. I V contrast was administered without complication. A dose lowering technique was utilized adhering to the principles of ALARA. CT DOSE: 799.80 mGycm FINDINGS: Thyroid: Imaged portions of the thyroid gland are normal in size and attenuation. Thoracic aorta: The thoracic aorta is normal in caliber and demonstrates variant 3-vessel arch anatom y. There is a bovine arch, and the left vertebral artery arises directly from the thoracic aorta. No dissection is seen. Pulmonary vasculature: The pulmonary trunk is dilated, measuring 3.9 cm in transverse diameter. This suggests pulmonary artery hypertension. There are no filling defects identified in main, lobar, or se gmental pulmonary branches to suggest pulmonary embolus. Evaluation of the peripheral branches is deg raded by motion artifact and suboptimal contrast opacification. Heart: The heart is enlarged and without pericardial effusion. Lungs and pleural spaces: Evaluation of the lung parenchyma is degraded by motion artifact. Multifoca l airspace consolidation is seen throughout both lungs. The trachea and central airways are clear. No pleural effusion is identified. Mediastinum: There are numerous mildly enlarged mediastinal lymph nodes which measure up to 11 mm in short axis. Aggie: There are numerous mildly enlarged bilateral hilar nodes which measure up to 13 mm in short axi s. Axillae: There is no axillary lymphadenopathy. Upper abdomen: The liver appears enlarged and steatotic. The spleen is enlarged, measuring 16.6 cm in length. A small hiatal hernia is noted. Skeletal structures: No lytic or blastic bony lesions are seen. IMPRESSION: 1. There is no evidence of pulmonary embolus in the main, lobar, or segmental pulmonary arteries. 2. Multifocal airspace consolidation is consistent with pneumonia. Clinical correlation will be requi red and radiographic follow-up to resolution is recommended. 3. Cardiomegaly with evidence of pulmonary artery hypertension. 4. No pleural effusion. 5. Mildly enlarged mediastinal and hilar nodes are likely reactive. 6. The liver is enlarged and steatotic. 7. Splenomegaly. 8. Additional findings as above. ACT 112: Negative or not required by law. Electronically signed by: Steven Hameed M.D. 10/04/2020 9:33 PM
[2020-10-05] MEDS: ALBUTEROL HFA 8 GM INHALER INH SCH ×3 (03:04→11:20)
[2020-10-05 08:15] LABS: Hematocrit (blood only) 37.4 % (37-47); Hemoglobin 11.7 g/dL (12.0-16.0); Mean Corpuscular Hemoglobin 24.5 pg (25-34); Mean Corpuscular Hgb Conc 31.3 g/dL (32-36); Mean Corpuscular Volume 78.2 fL (80-100); Mean Platelet Volume 9.7 fL (7.4-10.4); Platelet Count 250 K/uL (130-400); RDW Coefficient of Variation 15.2 % (11.5-14.5); RDW Standard Deviation 44.3 fL (36.4-46.3); Red Blood Count 4.78 M/uL (4.2-5.4)
--- NOTE | 2020-10-05 08:28 | Electrocardiogram Report ---
Test Reason : Blood Pressure : / mmHG Vent. Rate : 061 BPM Atrial Rate : 061 BPM P-R Int : 156 ms QRS Dur : 108 ms QT Int : 448 ms P-R-T Axes : 048 -44 -07 degrees QTc Int : 450 ms Normal sinus rhythm Left axis deviation Minimal voltage criteria for LVH, may be normal variant Possible Lateral infarct (cited on or before 06-FEB-2020) Abnormal ECG When compared with ECG of 06-FEB-2020 12:24, Inverted T waves have replaced nonspecific T wave abnormality in Inferior leads Nonspecific T wave abnormality now evident in Lateral leads Confirmed by Wang Fontanez ([id number]) on 10/05/2020 8:28:06 AM Referred By: REFERRED SELF Confirmed By:Seth Fontanez
[2020-10-05 08:45] LABS: BUN Creatinine Ratio 11.8 (10-20); Calcium 8.1 mg/dl (8.5-10.1); Creatinine Clr Calc Pharmacy 142.4 ml/min; Est GFR (African American) 86.5 ml/min; Est GFR (Non-African American) 74.7 ml/min; Potassium 3.8 mmol/L (3.5-5.1)
[2020-10-05] MEDS: ENOXAPARIN INJ 40 MG/0.4 ML SYR SQ SCH ×2 (09:37→20:16)
[2020-10-05] MEDS: BENZONATATE 100 MG CAPSULE PO SCH ×3 (09:38→20:17)
[2020-10-05] MEDS: VENLAFAXINE HCL XR 150 MG CAPXR PO SCH (09:38)
[2020-10-05] MEDS: buPROPion XL 150 MG TABCR PO SCH (09:38)
[2020-10-05] MEDS: PANTOprazole 40 MG TAB PO SCH (09:39)
[2020-10-05] MEDS: REMDESIVIR 100 MG in SODIUM CHLORIDE 0.9% 230 ML IV SCH (12:05)
[2020-10-05] MEDS: SODIUM CHLORIDE 0.9% 10ML FLUSH IV SCH (12:10)
[2020-10-05] MEDS ORDERED: ALBUTEROL HFA 8 GM INHALER INH PRN (13:13)
--- NOTE | 2020-10-05 16:42 | Hospitalist Progress Note ---
Date of Service October 05, 2020 Assessment & Plan (1) BRADEN (acute kidney injury): (2) Pneumonia due to 2019 novel coronavirus: Plan: 45-year-old lady with PMH of BMI in 60s secondary to excess calories, lymphedema, BRADEN came in 10/04 to our ED with complaint of chest pain. She was diagnosed with Covid 09/29 [Friday] and chest pain had been worsening since then. Her diarrhea has recently resolved and she started to make some scant sputum with the cough. She has been managed for the followin. Covid pneumonia Patient not vaccinated against Covid CTA chest was done for elevated D-dimers, came out negative for PE. It also showed multifocal airspace consolidation consistent with pneumonia. On remdesivir from 10/04, stop date 10/08 Continue with dexamethasone, oxygen as needed, labs as needed, spirometry Repeat blood level on 10/06 Likely viral pneumonia, monitor for bacterial conversion, do pro-Stephen as needed Continue to monitor 2. BRADEN Resolved 3. Hepatic steatosis CT chest shows enlarged and steatotic liver Stable Disposition: Likely DC after completion of remdesivir. Admission and Anticipated Discharge Date Admission Date: October 04, 2020 Subjective Patient was lying in bed, on room air, NAD, no new issues overnight. Patient states that her diarrhea has resolved yesterday, had never experienced loss of taste or smell sensation. She has mild cough with scant sputum today. We will continue to monitor her sinus symptoms. Other ROS were negative. Physical Exam Physical Exam: GENERAL: Alert and oriented x3. NAD, on RA. Morbidly obese. HEENT: No pallor, no icterus. Pupils equal, round and reactive to light. Oral mucosa moist. NECK: No JVD, no neck masses. HEART: S1 and S2 heard. Regular rate and rhythm. No murmur, no gallop. RESPIRATORY SYSTEM: Normal AP diameter. No accessory muscle use. No wheezing, no crackles. ABDOMEN: Soft, bowel sounds present, nontender, no distention. CENTRAL NERVOUS SYSTEM: Alert and oriented x3. No facial droop. Speech is clear. Obeys simple commands. Moves extremities. EXTREMITIES: No edema, no erythema seen. Results & Data Results & Data ([facility]) Vital Signs (Past 12 Hours) Vital Signs Pulse Resp Pulse Ox 10/05/20 11:20 87 18 90 10/05/20 07:20 75 20 83 L
[2020-10-06 06:11] LABS: Hematocrit (blood only) 37.1 % (37-47); Hemoglobin 11.4 g/dL (12.0-16.0); Mean Corpuscular Hemoglobin 24.4 pg (25-34); Mean Corpuscular Hgb Conc 30.7 g/dL (32-36); Mean Corpuscular Volume 79.3 fL (80-100); Mean Platelet Volume 9.7 fL (7.4-10.4); Platelet Count 251 K/uL (130-400); RDW Coefficient of Variation 15.7 % (11.5-14.5); Red Blood Count 4.68 M/uL (4.2-5.4); White Blood Count 5.94 K/uL (4.8-10.8)
[2020-10-06 06:40] LABS: BUN Creatinine Ratio 12.2 (10-20); Calcium 8.4 mg/dl (8.5-10.1); Est GFR (African American) 65.4 ml/min; Est GFR (Non-African American) 56.4 ml/min; Potassium 3.7 mmol/L (3.5-5.1)
[2020-10-06] MEDS: VENLAFAXINE HCL XR 150 MG CAPXR PO SCH (08:41)
[2020-10-06] MEDS: ENOXAPARIN INJ 40 MG/0.4 ML SYR SQ SCH ×2 (08:41→20:23)
[2020-10-06] MEDS: PANTOprazole 40 MG TAB PO SCH (08:41)
[2020-10-06] MEDS: buPROPion XL 150 MG TABCR PO SCH (08:41)
[2020-10-06] MEDS: BENZONATATE 100 MG CAPSULE PO SCH ×3 (09:24→20:24)
[2020-10-06] MEDS: REMDESIVIR 100 MG in SODIUM CHLORIDE 0.9% 230 ML IV SCH (12:39)
[2020-10-06] MEDS: SODIUM CHLORIDE 0.9% 10ML FLUSH IV SCH (12:40)
--- NOTE | 2020-10-06 18:11 | Hospitalist Progress Note ---
Date of Service October 06, 2020 Assessment & Plan (1) BRADEN (acute kidney injury): (2) Pneumonia due to 2019 novel coronavirus: Plan: 45-year-old lady with PMH of BMI in 60s secondary to excess calories, lymphedema, BRADEN came in 10/04 to our ED with complaint of chest pain. She was diagnosed with Covid 09/29 [Friday] and chest pain had been worsening since then. Her diarrhea has recently resolved and she started to make some scant sputum with the cough. She has been managed for the followin. Covid pneumonia Patient not vaccinated against Covid CTA chest was done for elevated D-dimers, came out negative for PE. It also showed multifocal airspace consolidation consistent with pneumonia. On remdesivir from 10/04, stop date 10/08 Continue with dexamethasone, oxygen as needed, labs as needed, spirometry Likely viral pneumonia, monitor for bacterial conversion, do pro-Stephen as needed She is feeling same/slightly better today. Currently on 2L NC O2. Continue to monitor 2. BRADEN Resolved 3. Hepatic steatosis CT chest shows enlarged and steatotic liver Stable Disposition: Likely DC after completion of remdesivir. Admission and Anticipated Discharge Date Admission Date: October 05, 2020 Subjective Patient was lying in bed, on room air, NAD, no new issues overnight. Patient states that she had diarrhea initially which resolved, had never experienced loss of taste or smell sensation. She has mild cough with scant sputum which has stayed same. We will continue to monitor her sinus symptoms. Other ROS were negative. Physical Exam Physical Exam: GENERAL: Alert and oriented x3. NAD, on RA. Morbidly obese. HEENT: No pallor, no icterus. Pupils equal, round and reactive to light. Oral mucosa moist. NECK: No JVD, no neck masses. HEART: S1 and S2 heard. Regular rate and rhythm. No murmur, no gallop. RESPIRATORY SYSTEM: Normal AP diameter. No accessory muscle use. No wheezing, no crackles. ABDOMEN: Soft, bowel sounds present, nontender, no distention. CENTRAL NERVOUS SYSTEM: Alert and oriented x3. No facial droop. Speech is clear. Obeys simple commands. Moves extremities. EXTREMITIES: No edema, no erythema seen. Results & Data Results & Data ([facility]) Vital Signs (Past 12 Hours) Vital Signs Temp Pulse Resp BP Pulse Ox 10/06/20 15:43 37.3 C 58 L 16 97/64 L 93 10/06/20 11:56 36.9 C 61 16 96/60 L 95 10/06/20 08:48 36.9 C 65 18 101/62 93
[2020-10-07 06:34] LABS: Hemoglobin 11.2 g/dL (12.0-16.0); Mean Corpuscular Hemoglobin 24.6 pg (25-34); Mean Corpuscular Hgb Conc 31.1 g/dL (32-36); Mean Corpuscular Volume 78.9 fL (80-100); Mean Platelet Volume 9.6 fL (7.4-10.4); Platelet Count 250 K/uL (130-400); RDW Coefficient of Variation 15.6 % (11.5-14.5); RDW Standard Deviation 45.4 fL (36.4-46.3); Red Blood Count 4.56 M/uL (4.2-5.4); White Blood Count 4.73 K/uL (4.8-10.8)
[2020-10-07 07:15] LABS: BUN Creatinine Ratio 13.2 (10-20); Calcium 8.2 mg/dl (8.5-10.1); Creatinine Clr Calc Pharmacy 151.8 ml/min; Est GFR (African American) 92.6 ml/min; Est GFR (Non-African American) 79.9 ml/min; Potassium 3.6 mmol/L (3.5-5.1)
[2020-10-07] MEDS: ENOXAPARIN INJ 40 MG/0.4 ML SYR SQ SCH ×2 (09:07→19:59)
[2020-10-07] MEDS: SODIUM CHLORIDE 0.9% 10ML FLUSH IV SCH (09:08)
[2020-10-07] MEDS: VENLAFAXINE HCL XR 150 MG CAPXR PO SCH (09:08)
[2020-10-07] MEDS: buPROPion XL 150 MG TABCR PO SCH (09:08)
[2020-10-07] MEDS: PANTOprazole 40 MG TAB PO SCH (11:35)
[2020-10-07] MEDS: BENZONATATE 100 MG CAPSULE PO SCH ×3 (11:35→20:01)
[2020-10-07] MEDS: REMDESIVIR 100 MG in SODIUM CHLORIDE 0.9% 230 ML IV SCH (11:37)
--- NOTE | 2020-10-07 15:06 | Hospitalist Progress Note ---
Date of Service October 07, 2020 Assessment & Plan (1) BRADEN (acute kidney injury): (2) Pneumonia due to 2019 novel coronavirus: Plan: 45-year-old lady with PMH of BMI in 60s secondary to excess calories, lymphedema, BRADEN came in 10/04 to our ED with complaint of chest pain. She was diagnosed with Covid 09/29 [Friday] and chest pain had been worsening since then. Her diarrhea has recently resolved and she started to make some scant sputum with the cough. She has been managed for the followin. Covid pneumonia Patient not vaccinated against Covid CTA chest was done for elevated D-dimers, came out negative for PE. It also showed multifocal airspace consolidation consistent with pneumonia. On remdesivir from 10/04, stop date 10/08. She received dexamethasone one-time dose on the day of admission, has not been on steroids since then. Continue with oxygen as needed, labs as needed, spirometry Likely viral pneumonia, monitor for bacterial conversion, do pro-Stephen as needed She is doing better, eating okay, usual bowel movements, cough improved. Currently on room air versus 1 L nasal cannula. Continue to monitor 2. BRADEN Resolved 3. Hepatic steatosis CT chest shows enlarged and steatotic liver Stable Disposition: Likely DC after completion of remdesivir on 10/08. To home. Admission and Anticipated Discharge Date Admission Date: October 05, 2020 Subjective Patient was lying in bed, on room air the put on 1 L nasal cannula oxygen [states that she does not need oxygen much], NAD, no new issues overnight. Patient states that she had diarrhea initially which resolved, had never experienced loss of taste or smell sensation. Cough is improved, feeling better, has usual bowel movements, eating okay. Other ROS were negative. Physical Exam Physical Exam: GENERAL: Alert and oriented x3. NAD, on RA. Morbidly obese. HEENT: No pallor, no icterus. Pupils equal, round and reactive to light. Oral mucosa moist. NECK: No JVD, no neck masses. HEART: S1 and S2 heard. Regular rate and rhythm. No murmur, no gallop. RESPIRATORY SYSTEM: Normal AP diameter. No accessory muscle use. No wheezing, no crackles. ABDOMEN: Soft, bowel sounds present, nontender, no distention. CENTRAL NERVOUS SYSTEM: Alert and oriented x3. No facial droop. Speech is clear. Obeys simple commands. Moves extremities. EXTREMITIES: No edema, no erythema seen. Results & Data Results & Data ([facility]) Vital Signs (Past 12 Hours) Vital Signs Temp Pulse Pulse Resp BP Pulse Ox Pulse Ox 10/07/20 14:54 36.7 C 61 21 106/72 92 10/07/20 11:32 37 C 64 21 103/61 93 10/07/20 08:37 37 C 58 L 16 109/68 95 10/07/20 08:00 55 L 95
[2020-10-08 07:06] LABS: Alanine Aminotransferase 22 U/L (12-78); Aspartate Aminotransferase 21 U/L (15-37)
[2020-10-08] MEDS: ENOXAPARIN INJ 40 MG/0.4 ML SYR SQ SCH ×2 (09:12→21:07)
[2020-10-08] MEDS: buPROPion XL 150 MG TABCR PO SCH (09:14)
[2020-10-08] MEDS: PANTOprazole 40 MG TAB PO SCH (09:14)
[2020-10-08] MEDS: VENLAFAXINE HCL XR 150 MG CAPXR PO SCH (09:14)
[2020-10-08] MEDS: BENZONATATE 100 MG CAPSULE PO SCH ×3 (09:56→21:08)
[2020-10-08] MEDS: REMDESIVIR 100 MG in SODIUM CHLORIDE 0.9% 230 ML IV SCH (13:11)
[2020-10-08] MEDS: SODIUM CHLORIDE 0.9% 10ML FLUSH IV SCH (14:20)
[2020-10-08] MEDS: dexAMETHasone 4 MG TAB PO SCH (15:38)
--- NOTE | 2020-10-08 17:34 | Hospitalist Progress Note ---
Date of Service October 08, 2020 Assessment & Plan (1) BRADEN (acute kidney injury): (2) Pneumonia due to 2019 novel coronavirus: Plan: 45-year-old lady with PMH of BMI in 60s secondary to excess calories, lymphedema, BRADEN came in 10/04 to our ED with complaint of chest pain. She was diagnosed with Covid 09/29 [Friday] and chest pain had been worsening since then. Her diarrhea has recently resolved and she started to make some scant sputum with the cough. She has been managed for the followin. Covid pneumonia Patient not vaccinated against Covid CTA chest was done for elevated D-dimers, came out negative for PE. It also showed multifocal airspace consolidation consistent with pneumonia. On remdesivir from 10/04, stop date 10/08. Continue with Decadron Continue with oxygen as needed, labs as needed, spirometry Likely viral pneumonia, monitor for bacterial conversion, do pro-Stephen as needed Continue to monitor nasal cannula, titrate down to room air as able. She failed 2 step test today. Considering PT OT reeval, and repeat two-step test. 2. BRADEN Resolved 3. Hepatic steatosis CT chest shows enlarged and steatotic liver Stable Disposition: Failed 2-step test. Repeat test glynn. CM stating PT will be seeing her tomorrow. Would like re-eval on her DC plan. Admission and Anticipated Discharge Date Admission Date: October 05, 2020 Subjective Patient was lying in bed, on room air the put on 1 L nasal cannula oxygen, NAD, no new issues overnight. Patient states that she had diarrhea initially which resolved, had never experienced loss of taste or smell sensation. Cough is improved, feeling better, has usual bowel movements, eating okay. Other ROS were negative. Patient fell 2 steps yesterday morning. At bedside exam, patient was sad when told that we need reevaluation by PT and might need her to stay today. She wanted to go home and was insisting on it. Per RN, later during the day see agreed to stay 1 more day and see how it goes for her for tomorrow. Physical Exam Physical Exam: GENERAL: Alert and oriented x3. NAD, on 1L. Morbidly obese. HEENT: No pallor, no icterus. Pupils equal, round and reactive to light. Oral mucosa moist. NECK: No JVD, no neck masses. HEART: S1 and S2 heard. Regular rate and rhythm. No murmur, no gallop. RESPIRATORY SYSTEM: Normal AP diameter. No accessory muscle use. No wheezing, no crackles. ABDOMEN: Soft, bowel sounds present, nontender, no distention. CENTRAL NERVOUS SYSTEM: Alert and oriented x3. No facial droop. Speech is clear. Obeys simple commands. Moves extremities. EXTREMITIES: No edema, no erythema seen. Results & Data Results & Data ([facility]) Vital Signs (Past 12 Hours) Vital Signs Temp Pulse Pulse Pulse Pulse Pulse Pulse 10/08/20 15:42 36.8 C 61 10/08/20 12:41 36.7 C 68 10/08/20 09:34 77 72 81 74 10/08/20 08:26 36.8 C 59 L 10/08/20 07:25 60 Pulse Resp Resp Resp Resp Resp Resp 10/08/20 15:42 20 10/08/20 12:41 18 10/08/20 09:34 59 L 22 18 22 20 16 10/08/20 08:26 18 10/08/20 07:25 BP Pulse Ox Pulse Ox Pulse Ox Pulse Ox Pulse Ox Pulse Ox 10/08/20 15:42 107/62 93 10/08/20 12:41 111/70 94 10/08/20 09:34 93 93 84 L 88 L 92 10/08/20 08:26 122/69 93 10/08/20 07:25
[2020-10-09 08:36] LABS: Alanine Aminotransferase 24 U/L (12-78); Aspartate Aminotransferase 18 U/L (15-37)
[2020-10-09] MEDS: VENLAFAXINE HCL XR 150 MG CAPXR PO SCH (08:55)
[2020-10-09] MEDS: PANTOprazole 40 MG TAB PO SCH (08:55)
[2020-10-09] MEDS: BENZONATATE 100 MG CAPSULE PO SCH ×2 (08:55→13:56)
[2020-10-09] MEDS: ENOXAPARIN INJ 40 MG/0.4 ML SYR SQ SCH (08:55)
[2020-10-09] MEDS: dexAMETHasone 4 MG TAB PO SCH (08:55)
[2020-10-09] MEDS: buPROPion XL 150 MG TABCR PO SCH (08:56)
--- NOTE | 2020-10-09 13:21 | Discharge Summary ---
Date of Service October 09, 2020 Admission HPI Per Admitting Provider 45-year-old female who presented to the emergency department today for chest pain. The patient pointed to her epigastric area and lower chest. The pain was about 5/10 and worse c deep inspiration. It started a few days ago and got a little worse each day. She also c/o flulike symptoms last Friday. She has a sore throat and cough. She was seen by her primary care physician on Friday and was tested for COVID-19 which came back positive. notes difficulty breathing and shortness of breath. She also complains of nausea, but no vomiting and had some diarrhea today. She called her PCP today who referred to the ER. Patient is not vaccinated. Admission Exam Per Admitting Provider Physical Exam Gen-AAO x 3, NAD, Afebrile, Obese Head-NCAT, EOMI, PERRLA, Anicteric Sclera, No Posterior Pharyngeal Erythema Neck-Supple, No JVD, No Thyromegaly, No Masses, No LAD, No Bruits Lungs-Clear to Auscultation Bilaterally, No Rales, No Rhonchi, No Wheezing, No Crepitus Chest-No S4, +S1, +S2, No S3, No Murmurs, No Rubs, No Gallops, No Ectopy, +CP c Deep inspiration Abdomen-Soft, Obese, Bowel Sounds Present, Non Tender, Non Distended, No Hepatomegaly, No Splenomegaly, No Palpable Masses, No Rebound, No Rigidity, No Guarding Musculoskeletal-Full Range of Motion Bilaterally, No CVAT Extremities-No Cyanosis, No Clubbing, Bilaterl LE Lymphedema Nuero-Cranial Nerves II-XII grossly intact, Motor WNL, DTRs WNL, Strength WNL, Non Focal Psych-Normal Mood Principal Diagnosis COVID PNA BRADEN Fatty Liver Lymphedema Discharge Exam ROS-No Headache, No Visual Changes, No Nausea, No Vomiting, No Fever, No Chills, No Neck Pain or Stiffness, No Chest Pain, No Palpitations, No SOB, No COREA, No Cough, No Sputum, No Wheezing, No Abdominal Pain, No Diarrhea, No Hematemesis, No Hemoptysis, No Unexpected Weight Loss, No Flank pain, No Melena, No Hematochezia, No Frequency, No Urgency, No Burning, No Hematuria, No Rashes, No Diaphoresis. Appetite is Normal Physical Exam Gen-AAO x 3, NAD, Afebrile Head-NCAT, EOMI, PERRLA, Anicteric Sclera, No Posterior Pharyngeal Erythema Neck-Supple, No JVD, No Thyromegaly, No Masses, No LAD, No Bruits Lungs-Clear to Auscultation Bilaterally, No Rales, No Rhonchi, No Wheezing, No Crepitus Chest-No S4, +S1, +S2, No S3, No Murmurs, No Rubs, No Gallops, No Ectopy Abdomen-Soft, Bowel Sounds Present, Non Tender, Non Distended, No Hepatomegaly, No Splenomegaly, No Palpable Masses, No Rebound, No Rigidity, No Guarding Musculoskeletal-Full Range of Motion Bilaterally, No CVAT Extremities-No Cyanosis, No Clubbing, No Edema Nuero-Cranial Nerves II-XII grossly intact, Motor WNL, DTRs WNL, Strength WNL, Non Focal Psych-Normal Mood Discharge Data Allergies Allergy/AdvReac Type Severity Reaction Status Date / Time adhesive Allergy Unknown . Verified 02/06/20 14:20 Penicillins Allergy Unknown . Verified 02/06/20 14:20 Consultations 10/04/20 13:51 ED Decision to Admit Stat Ordered Studies 10/04/20 14:45 CT angio chest PE protocol Stat Current Diagnoses Morbid (severe) obesity due to excess calories (10/05/20) Hypokalemia (10/05/20) Lymphedema, not elsewhere classified (10/05/20) Pneumonia due to coronavirus disease 2019 (10/05/20) Acute kidney failure, unspecified (10/05/20) Chest pain, unspecified (10/05/20) COVID-19 (10/05/20) Allergies adhesive Allergy (Unknown, Verified 02/06/20 14:20) . Penicillins Allergy (Unknown, Verified 02/06/20 14:20) . Height/Weight/Isolation Height 5 ft 9 in Weight 197.9 kg Isolation Type COVID Precautions Hospital Course (1) Pneumonia due to 2019 novel coronavirus: 45-year-old lady with PMH of BMI in 60s secondary to excess calories, lymphedema, BRADEN came in 10/04 to our ED with complaint of chest pain. She was diagnosed with Covid 09/29 [Friday] and chest pain had been worsening since then. Her diarrhea has recently resolved and she started to make some scant sputum with the cough. She has been managed for the followin. Covid pneumonia Patient not vaccinated against Covid CTA chest was done for elevated D-dimers, came out negative for PE. It also showed multifocal airspace consolidation consistent with pneumonia. On remdesivir from 10/04, stop date 10/08. Continue with Decadron Continue with oxygen at home, spirometry Likely viral pneumonia, monitor for bacterial conversion, do pro-Stephen as needed Continue to monitor nasal cannula, titrate down to room air as able. She failed 2 step test today. Considering PT OT reeval, and repeat two-step test. 2. BRADEN Resolved 3. Hepatic steatosis CT chest shows enlarged and steatotic liver Stable Disposition: Failed 2-step test. Repeat test today-needs home O2. Total Time Total Time Spent Total Time Spent (In Minutes): 45 mins Total Time Includes: Examination of the Patient, Discharge Planning, Medication Reconciliation and Communication With Other Providers Discharge Plan Discharge Items Patient Disposition: Home - Self-Care Reason For Visit: COVID PNA Discharge Diagnosis: COVID-19 Pneumonia Acute Renal Injury Fatty Liver Lymphedema Condition on Discharge: Good Health Concerns: None Activity: As commented below Activity Comment: Quarantine until Friday 10/13 Lifting: Gradually increase as tolerated Bathing: No limitations Sexual Activity: When tolerated Exercise/Sports: Gradually increase as tolerated Driving/Machine Use: No limitations Weightbearing: Full weightbearing Non-emergency contact: Primary Care Provider Call non-emergency contact if: you have any medication questions Follow-up/Referrals: Roldan Quiroz MD [Primary Care Provider] - (Date & Time 10/23/2020 9:40 AM Provider Roldan Quiroz MD Department [facility] ) Diet: Regular Addtl Attending Provider Instructions: Quarantine until 10/13 Pending Studies at Discharge: No Stand-Alone Forms: My [employer], Smoking Cessation Medications and DC Order Prescriptions: New benzonatate [Tessalon Perles] 100 mg Capsule 100 mg PO TID Qty: 15 RF: 0 dexamethasone 4 mg Tablet 6 mg PO QAM Qty: 7 RF: 0 albuterol sulfate [Ventolin HFA] 90 mcg/actuation Hfa Aerosol Inhaler 2 puff inhalation QIDR PRN (Reason: shortness of breath or wheezing) Qty: 8.5 RF: 0 (DME) Oxygen Home Liters Per Minute See Rx Instructions .ROUTE Qty: 1 RF: 0 Continued omeprazole 20 mg capsule,delayed release(DR/EC) 20 mg PO DAILY RF: 0 venlafaxine 150 mg capsule,extended release 24hr 150 mg PO DAILY RF: 0 lorazepam 0.5 mg Tablet 0.5 mg PO DAILY PRN (Reason: Anxiety) RF: 0 bupropion HCl 150 mg tablet extended release 24 hr 150 mg PO DAILY RF: 0 Discharge Orders: Discharge Order (Routine); Ordered 10/09/20 Ordered By: Stepan Rivas Admission Data Admit Date/Time: 10/05/20 19:53 Attending Provider: Stepan Rivas Admit Provider: Shira Gale Primary Care Provider: Roldan Quiroz Other Providers: Stepan Rivas
== END 2020-10-09 14:56 | disposition home or self-care (01) | DRG 177 ==
LOC: ED 11:16 → EDINP 11:16 → SUATTDRO 13:51 → 2N 18:18 → SUATTDRO 10-05 19:53
DX: K76.0 Fatty (change of) liver, not elsewhere classified; U07.1 COVID-19; E87.6 Hypokalemia; Z68.44 Body mass index [BMI] 60.0-69.9, adult; N17.9 Acute kidney failure, unspecified; E66.01 Morbid (severe) obesity due to excess calories; K21.9 Gastro-esophageal reflux disease without esophagitis; J12.82 Pneumonia due to coronavirus disease 2019; Z88.0 Allergy status to penicillin

== ENCOUNTER 2023-03-14 17:37 | Inpatient (IN) ==
[2023-03-14] MEDS ORDERED: RAPID SEQUENCE INDUCTION BAG ONE ×2 (17:43→17:45)
[2023-03-14] MEDS ORDERED: LORazepam 1 MG/1 ML SYR ED Inj Use ONE (17:48)
[2023-03-14] MEDS ORDERED: CEFEPIME 2,000 MG/20 ML VIAL IV STA (17:52)
--- OUTSIDE RECORDS SUMMARY | 2023-03-14 17:53 | External Medical Summary | Summary of Care ---
Author Name Unknown Organization [facility] Address [address] [address] Phone [phone] Care Team Providers Care Movie Projectionist Name Role Phone Roldan Quiroz MD Primary Care Provider [phone] Reason for Visit * Reason Onset Date Comments Follow Up 03/05/2023 Encounter Details Date Type Department Care Team (Late st Contact Info) Description 03/05/2023 Telephone [facility] [address] [place] [address] Roldan Quiroz MD [address] [place] [address] Follow Up Allergies Active Allergy Reactions Criticality Noted Date Comments Adhesive Tape Rash 04/20/2009 Penicillin G Nausea/vomiting 11/21/1999 Sumatriptan 01/10/2020 GI upset,nausea and vomiting documented as of this encounter (statuses as of 03/06/2023) Medications Medication Sig Dispensed Refills Start Date End Date Status LORazepam 0.5 MG Oral Tablet Take 1 Tablet by mouth as needed for Anxiety. 30 Tab 0 03/14/2015 Active Blood Glucose Monitoring Suppl (ONETOUCH VERIO) w/Device KITIndications:M orbid obesity (HCC) Use to check blood sugar as needed. DX E66.01 1 Kit 0 02/04/2018 Active OneTouch UltraSoft LancetsIndicatio ns:Elevated glucose Use once per day to check blood sugars as directed 100 Each 5 03/27/2020 Active Ventolin HFA 108 (90 Base) MCG/ACT Inhalation Aerosol SolutionIndicati ons:Wheeze,Cough Inhale by mouth 2 Puffs 4 times a day as needed (wheeze). 18 g 1 07/11/2021 Active Hydroxychloroqui ne Sulfate 200 MG Oral Tablet (Plaquenil) Take 2 Tablets by mouth in the morning. 60 Tablet 11 05/09/2022 Active OneTouch Verio In Vitro Strip (Glucose Blood) Use to check blood sugars once per day as needed DX E66.01 100 Strip 5 05/09/2022 Active B-12-SL 1000 MCG Sublingual Tablet Sublingual (Cyanocobalamin) Indications:B12 deficiency Place 1,000 mcg under the tongue in the morning. 30 Tablet 11 07/30/2022 Active Meloxicam 15 MG Oral TabletIndication s:Hip pain, right Take 1 Tablet by mouth in the morning. for pain.. 14 Tablet 0 09/26/2022 Active Additional Information Patient not taking.Reported on 11/26/2022 CPAP every night at bedtime. 0 Active Montelukast Sodium 10 MG Oral Tablet (Singulair)Indic ations:Wheeze TAKE 1 TABLET BY MOUTH EVERY MORNING 90 Tablet 2 11/14/2022 Active Venlafaxine HCl ER 75 MG Oral Capsule Extended Release 24 Hour (Effexor XR) Take 1 Capsule by mouth in the morning. Do not cut, crush or chew. 90 Capsule 3 01/14/2023 Active Omeprazole 40 MG Oral Capsule Delayed Release (PriLOSEC) Take 1 Capsule by mouth in the morning. 1 hour before the first meal of the day. 90 Capsule 3 03/06/2023 Active Omeprazole 20 MG Oral Capsule Delayed Release (PriLOSEC)Indica tions:Abdominal pain, right upper quadrant TAKE 1 CAPSULE BY MOUTH EVERY MORNING 90 Capsule 2 11/14/2022 4 Discontinue d(Medicatio n/Dose Changed) Omeprazole 40 MG Oral Capsule Delayed Release (PriLOSEC) Take 1 Capsule by mouth in the morning. 1 hour before the first meal of the day. 90 Capsule 3 02/12/2023 4 Discontinue d(Refill) documented as of this encounter (statuses as of 03/06/2023) Active Problems Problem Noted Date Diagnosed Date Food insecurity 06/04/2021 Overview: Per [facility] Protocol Stage 3a chronic kidney disease 01/03/2020 Overview: Per CKD protocol Morbid obesity due to excess calories 04/13/2019 GERD (gastroesophageal reflux disease) 7 Generalized OA 11/27/2015 Anxiety state 01/17/2012 Plantar fasciitis 08/20/2011 Lymphedema 10/12/2010 VITAMIN B 12 DEFIENCY 08/15/2010 Vitamin D deficiency 08/09/2010 TUMID LE 02/21/2009 Overview: Lupus documented as of this encounter (statuses as of 03/06/2023) Resolved Problems Problem Noted Date Diagnosed Date Resolved Date History of 2019 novel sloan virus disease (COVID-19) 11/17/2020 02/12/2023 Morbid obesity with body mas s index (BMI) of 60.0 to 69.9 in adult 10/28/2017 03/11/2018 Morbid obesity with BMI of 50.0-59.9, adult 07/24/2017 10/28/2017 Morbid obesity with BMI of 60.0-69.9, adult 07/03/2017 07/24/2017 Body mass index (BMI) of 60. 0 to 69.9 in adult 06/03/2017 07/03/2017 Overview: Per Obesity protocol #1 Body mass index (BMI) of 50. 0 to 59.9 in adult 11/25/2016 06/06/2017 Overview: Per Obesity protocol #1 Multiple sites, insect bite, nonvenomous 10/27/2015 12/20/2015 Local reaction to bee sting 10/27/2015 12/20/2015 Sinus congestion 06/21/2015 12/20/2015 Encounter for long-term (cur rent) use of medications 11/16/2014 12/20/2015 Kidney disease, chronic, sta ge III (GFR 30-59 ml/min) 11/10/2012 11/10/2012 Kidney disease, chronic, sta ge III (GFR 30-59 ml/min) 11/10/2012 01/06/2020 Overview: Per CKD protocol Depression 01/17/2012 02/12/2023 BMI 50.0-59.9, adult 02/06/2011 017 NUMBNESS IN RIGHT ARM 07/05/20102010 STRESS GASTRITIS 01/19/2010 08/06/2016 Other acute reactions to stress 01/19/2010 08/15/2010 Contusion of knee 10/27/2009 08/15/2010 Obesity, morbid (more than 1 00 lbs over ideal weight or BMI > 40) 08/22/2009 02/06/2011 Overview: ICD-10 update of inactive term Family history of ischemic heart disease 05/18/2009 07/26/2016 Family history of diabetes mellitus 05/18/2009 07/26/2016 Morbid obesity, BMI not known 02/21/2009 08/22/2009 documented as of this encounter (statuses as of 03/06/2023) Immunizations Name Administration Dates Next Due Seasonal Influenza, Split, I IV3, With Preserve, Inj 12/15/2012,11/20/2011,12/12/2010, 0 ,02/21/2009 TDAP (age 10 and older)(Boostrix) 07/28/2020 TDAP (age 11 and older)(Adacel) 02/21/2009 documented as of this encounter Social History Tobacco Use Types Packs/Day Years Used Date Smoking Tobacco: Never Passive Smoke Exposure: Past Smokeless Tobacco: Never Alcohol Use Standard Drinks/Week Comments Not Currently 0 (1 standard drink = 0.6 oz pur e alcohol) rarely, none since April AUDIT-C Answer Date Recorded Frequency of Alcohol Consumption Monthly or less 12/03/2018 Average Number of Drinks Not on file 019 Frequency of Binge Drinking Not on file 11/24 PHQ-2 Answer Date Recorded PHQ Adult Total Score 1 05/09/2022 Hunger Vital Sign Answer Date Recorded Within the past 12 months, y ou worried that your food would run out before you got the money to buy more. Sometimes true Within the past 12 months, t he food you bought just didn't last and you didn't have money to get more. Sometimes true Sex and Gender Information Value Date Recorded Sex Assigned at Female 08/11/2017 4:09 PM EDT Gender Identity Female 08/11/2017 4:09 PM EDT Sexual Orientation Straight 08/11/2017 4: 09 PM EDT Job Start Date Occupation Industry Not on file Not on file Not on file documented as of this encounter Miscellaneous Notes * Telephone Encounter - Roldan Quiroz MD - 03/06/2023 12:14 PM EST Sent erx * Telephone Encounter - Marisol Chavez LPN - 03/06/2023 10:40 AM EST Patient called. She is taking omeprazole 40 mg once a day and it is working. She tried to clam picker the 40 mg from the pharmacy but couldn't. Said she has been taking 2 of the 20 mg capsules. Pended medication Pending Prescriptions: Disp Refills Omeprazole 40 MG Oral Capsule Delayed Rel*90 Cap*3 Sig: Take 1 Capsule by mouth in the morning. 1 hour before the first meal of the day. Last Visit: 02/12/2023 (in office), 03/27/2020 (telemedicine) Next Visit: 05/16/2023 Last date the medication was ordered: 02/12/23 Patient Active Problem List Diagnosis Code KARTHIK LE L93.0 Vitamin D deficiency E55.9 VITAMIN B 12 DEFIENCY D51.0 Lymphedema I89.0 Plantar fasciitis M72.2 Anxiety state F41.1 Generalized OA M15.9 GERD (gastroesophageal reflux disease) K21.9 Morbid obesity due to excess calories ([facility]) E66.01 Stage 3a chronic kidney disease N18.31 Food insecurity Z59.41 Labs: Lab Results Component Value Date/Time CREATININE - [facility] 1.0 05/09/2022 01:46 PM CREATININE - [facility] 1.1 (H) 10/18/2019 12:24 PM CREATININE, RANDOM URINE - [facility] 220 05/09/2022 02:06 PM CREATININE, RANDOM URINE - [facility] 115 10/18/2019 12:59 PM CREATININE-[facility] 1.13 12/06/2017 12:00 AM Lab Results Component Value Date/Time POTASSIUM - [facility] 4.3 05/09/2022 01:46 PM POTASSIUM - [facility] 4.2 10/18/2019 12:24 PM POTASSIUM-[facility] 3.7 12/01/2017 12:00 AM Lab Results Component Value Date/Time TSH - [facility] 1.93 04/10/2020 02:13 PM TSH - [facility] 3.04 05/13/2017 10:09 AM TSH - [facility] 3.310 12/06/2017 12:00 AM Lab Results Component Value Date/Time LDL (CALCULATED)-[facility] 59 06/12/2009 08:49 AM LDL CHOLESTEROL (CALCULATED) - [facility] 83 07/02/2016 01:41 PM LDL CHOLESTEROL (CALCULATED) - [facility] 80 05/24/2011 09:14 AM LDL CHOLESTEROL (DIRECT MEASURE) - [facility] 98 11/09/2018 11:27 AM LDL CHOLESTEROL (DIRECT MEASURE) - [facility] NOT APPLICABLE 07/02/2016 01:41 PM Lab Results Component Value Date/Time ALT - [facility] 16 05/09/2022 01:46 PM ALT - [facility] 17 10/18/2019 12:24 PM Hemoglobin AIC Results: Lab Results Component Value Date/Time HEMOGLOBIN A1C - [facility] 5.4 10/18/2019 12:24 PM HEMOGLOBIN A1C - [facility] 5.5 02/04/2019 09:49 AM HEMOGLOBIN A1C - [facility] 5.3 08/25/2018 02:35 PM * Telephone Encounter - Roldan Quiroz MD - 03/05/2023 9:28 PM EST Please call pt for follow up of last office visit. Is she still having problems with heartburn symptoms despite the omeprazole 40 mg? If so, can offer addition of famotidine. documented in this encounter Plan of Treatment Upcoming Encounters Date Type Department Care Team (Late st Contact Info) Description 04/01/2023 10:00 AM EST Office Visit [facility] [address] [place] [phone] Anahy Morales, DO [address] [place] [address] 04/02/2023 11:00 AM EST Office Visit Dermatology [facility] [place] [address] [facility] [place] [address] Jessie Shea PA-C [address] [place] [phone] 05/16/2023 11:00 AM EDT Office Visit [facility] [address] [place] [address] Roldan Quiroz MD [address] [place] [address] 06/11/2023 8:30 AM EDT Procedure Only Endoscopy, [place] [address] [place] [address] Shannan Billingsley DO [address] [place] [id number] 07/09/2023 10:20 AM EDT Office Visit Rheumatology [address] [place], [place] [address] Rene Yen MD [address] [place] [address] [place] [address] Health Maintenance Due Date Last Done Comments Hepatitis B (1 of 3 - 3-dose series) 1974 COVID-19 Vaccine (#1) 04/27/1979 Pneumococcal Vaccine: Pediatrics (0 to 5 Years) and At-Risk Patients (6 to 64 Years) (1 - PCV) 1980 Hepatitis C Screening 1992 HPV/Co-Test 2004 Mammogram 06/15/2015 06/14/2014 Cervical Cancer Screening 01/01/2019 Pap Smear 01/01/2019 01/02/2016, 080 03/2012, 09/25/2012, Additional history exists Cologuard 04/27/2019 Fecal Occult Blood Test 04/27/2019 07/24/2012 Sigmoidoscopy 04/27/2019 Influenza Vaccine (FLU shot) (#1) 2022 12/15/2012, 12/15/2012, 11/20/2011, Additional history exists GFR 11/09/2022 05/09/2022, 100 06/2020, 10/24/2020, Additional history exists Albumin/Creatinine Ratio 05/10/2023 023, 10/18/2019, 11/09/2018 CKD HGB USE SMARTSET 89386 05/10/202305/09, 10/24/2020, 10/24/2020, Additional history exists CKD PHOS USE SMARTSET 35154 05/10/2023 05/09/2022, 0 11/09/2018 Depression Screening 05/10/2023 05/09/2022 Lipid Panel 11/10/2023 11/09/2018, 05/0 10/2016, 05/24/2011, Additional history exists Diabetes Screening 05/09/2025 05/09/2022, 0 10/24/2020, 05/18/2020, Additional history exists DTaP,Tdap,and Td Vaccines (3 - Td or Tdap) 07/28/2030 07/28/2020, 02/21/2009 Colonoscopy 12/27/2032 12/27/2022 Colorectal Cancer Screening 12/27/2032 GARDASIL-HPV IMMUNIZATION SERIES Aged Out No longer eligible based on patient's age to complete this topic MENINGOCOCCAL (MENACTRA/MENVEO) Aged Out No longer eligible based on patient's age to complete this topic documented as of this encounter Medical Devices Not on filedocumented as of this encounter Care Teams Movie Projectionist Relationship Specialty Start Date End Date Roldan Quiroz MD [address] [place] [address] PCP - General Family Medicine 06/04/18 documented as of this encounter
--- NOTE | 2023-03-14 17:56 | Emergency Department Note ---
Impression & Plan Respiratory failure requiring intubation, Encephalopathy, Metabolic acidosis, Lactic acidosis, Atrial fibrillation with rapid ventricular response ED Provider Note NAME: LOLY MENDOZA AGE: 47 SEX: F : 1975 ARRIVES VIA: Ambulance INFORMANT: Patient, ED PROVIDER(S): Billy Romero MD CHIEF COMPLAINT: Possible cardiac arrest, respiratory arrest, altered mental status MEDICAL DECISION MAKING: Patient presents due to concern for possible cardiac arrest or respiratory arrest. Patient does have occasional spontaneous breaths although could be agonal and the patient is not following commands or responding to external stimuli. Given this concern the patient is unable to protect her airway decision was made for the patient to be intubated. IVs were established as the patient initially had an IO. The patient was intubated after pulse ox of 100%. The patient was noted to be deep based on lung sounds and was retracted. X-ray was performed which did show the patient was still deep was retracted another 2 cm. Subsequent chest x-ray does show that the ET tube is above the jonna. Patient did have IV fluids ordered CT of the head chest abdomen pelvis blood work empiric antibiotics and IV fluids. Dlovo-[id number]-pdiv cardiac ultrasound shows relatively good function squeeze with no obvious pericardial effusion or significant RV bowing. The patient's hypoxia did improve after the patient's ET tube was retracted. The patient's CT head and CT angiography of the chest and CT abdomen pelvis did not show any significant concerning findings. They did call possible atelectatic change on the angio of the chest but no evidence of aneurysm dissection or PE. CT abdomen pelvis is negative. I did consider the possibility of seizure given the brief episode of shaking but this was only seconds in duration. Patient currently is on fentanyl and Versed drips. Patient's lactate is not significantly elevated either and also surprising that if the patient did have a cardiac arrest that her lactate would not be higher. The patient's white count is normal with a normal hemoglobin and platelet count. The patient's kidney function is unremarkable. Initial ABG with a pH of 7.22. Repeat was obtained approximate hour later at 7.24. Patient's mildly hypercarbic at 49. Patient's hypothermia did improve. The patient's kidney function is unremarkable with normal electrolytes. Initial lactate of 3 point 1 repeat at 4.2. Calcium of 8.1. Initial troponin negative. Procalcitonin is not elevated. Urinalysis does not show evidence of obvious infection negative MRSA swab. The patient's bio fire is positive for coronavirus H KU 1. I did speak with the on-call hospitalist Dr. Garcia I did speak with the densitometer reader LEONEL Ruiz. CTA of the head and neck also ordered to rule the possibility of thrombosis given the patient's new onset A-fib. The patient was ordered diltiazem drip as well as heparin. The heparin was avoided until review of the patient's CT chest abdomen pelvis which does not show obvious dissection and no obvious bleeding in the head chest abdomen or pelvis. CT cervical spine negative. Critical Care: I have personally spent 122 minutes of critical care time in direct management of this patient. This includes bedside care, interpretation of diagnostic studies, and testing, discussion with consultants, patient, and family members, and other require inpatient management activities. This 122 minutes is in excess of all separately billable procedures. Procedures: Endotracheal Intubation performed by Dr. Romero Indication: Respiratory failure, unresponsive. The patient was on 100% oxygen via NRB prior to the procedure. Suction, airway equipment, RSI drugs, respiratory equipment, and appropriate personnel were prepared prior to the initiation of the procedure. A time out was taken. Induction was performed with 100 mcg of fentanyl and 200 mg of rocuronium for paralysis. After observing the clinical benefit of the medications, the airway was easily visualized utilizing a Mac 4 video laryngoscope. A 7.5 size ETT tube was placed atraumatically to 28 cm using standard technique. The cuff inflated without signs of malfunction. There were bilateral breath sounds, positive colormetric change, no gastric sounds, a good capnography waveform, and post procedure pulse oximetry was 95%. Patient did sound as though she was in the right mainstem. She was retracted 2 cm and breath sounds were heard bilaterally. Subsequent chest x-ray did show that the patient was still in the right mainstem and the patient was retraction additional 2 cm. There were no complications. Limited Point of Care Cardiac Ultrasound performed by me: Indication: Tachycardia, hypotension Findings: Limited echocardiography revealed no pericardial fluid. Wall motion appeared grossly normal with normal-appearing EF. HR 150. Additional findings: IVC may be somewhat plethoric although difficult to ascertain. No obvious B- lines bilaterally in the lung bateman with good lung slide Impression: No significant pericardial effusion Discussion w/ other healthcare providers: LEONEL Ruiz and Dr. Handy densitometer reader Dr. Garcia inpatient medicine service Prior /Outside records reviewed: I reviewed a prior primary care visit from [facility] which that the patient did have a prior history of sleep apnea. Differential diagnosis: Respiratory arrest, cardiac arrest, hypercarbia, flash pulmonary edema, PE, A- fib with RVR, dehydration among others were considered Diagnostics, as interpreted by me: ECG: A-fib with RVR, rate 143, normal QRS, left axis deviation no obvious ST elevations. Cardiac monitoring: An order was placed for continuous cardiac monitoring. The monitor shows a rate of 136 with tachycardic and irregular irregular rhythm. Patient was placed on pulse oximetry Medical decision rules: None Imaging studies: I informally interpreted the patient's chest x-ray which does show ET tube was in the right mainstem bronchus with formal report to follow. I informally interpreted the patient's repeat chest x-ray shows retraction of the ET tube is 4 cm above the jonna without obvious pneumonia with formal report to follow. I informally interpreted the patient's CT head which does not show obvious ICH with formal report to follow HPI: History is limited other than what EMS provides at the time of presentation. The patient reportedly was at kids to kid sitting on a bench because she is very short of breath and collapsed. Police Department did provide CPR on arrival. Patient was found to have a pulse. EMS did attempt to intubate but was unable to do so. BSG in the 100s. Patient does have a history of kidney disease. Not a reported dialysis patient. Additional history was obtained from the patient's family who did arrive. Daughter was with the patient at the time and was stated that she did feel short of breath she fell down striking her head on a shopping cart. She did not check the pulse another did staff there and thus EMS was called to respond. PAST MEDICAL HISTORY: See Below PAST SURGICAL HISTORY: See Below SOCIAL HISTORY: See Below HOME MEDICATIONS: See Below ALLERGIES: See Below VITALS: See Below PHYSICAL EXAMINATION: GENERAL: Significant distress, morbidly obese. EYE EXAM: Normal conjunctiva. PERRL, no anisocoria and EOM's grossly intact w/o pain. Nose: Left nares with nasal trumpet in place OROPHARYNX: Clamped, possible tongue biting NECK: Supple, no nuchal rigidity, no adenopathy, non-tender. No signs of meningismus. FROM of the neck with good chin to chest and neck extension. No stridor. LUNGS: Clear to auscultation. Normal chest wall mechanics. HEART: Irregular irregular tachycardic, no MRG. ABDOMEN: Abdomen soft, non-tender, no masses, no rebound or guarding. BACK: No CVA TTP. SKIN: No rashes and no bruising. UPPER EXTREMITIES: Upper extremities are grossly normal. LOWER EXTREMITIES: Grossly normal, no edema. IO noted left lower extremity. NEURO EXAM: GCS of 3, occasional spontaneous breaths, does not follow commands and does not move extremities to external stimuli. Past Med/Surg History Medical History Morbid obesity Fatty liver History of COVID-19 09/2020 developed covid pneumonia and treated inpatient at [facility] at the time. no problems since. Seasonal allergies Anxiety Dyspnea on exertion Sleep apnea cpap at night Lymphedema bilateral legs CKD (chronic kidney disease) stage 3 - monitoring GERD (gastroesophageal reflux disease) Lupus Surgical History History of colonoscopy Family History Other No family history of adverse response to anesthesia Social History Smoking Status: Unknown if ever smoked Second Hand Exposure: No; Do You Dip or Chew Tobacco: No; Hx Substance Use: No Preferred Language: Spanish Communication Ability: Effective Slack Cooper Required: No Beliefs That Will Affect Care: None marital status: Current Living Situation: Spouse and Family Current Living Situation Comment: Lives with and daughter/son in law and grandchildren x2 current occupational status: unemployed Feels Safe at Home: Yes Assistive Devices: CPAP and Glasses Allergies Allergies Allergy/AdvReac Type Severity Reaction Status Date / Time Penicillins Allergy Severe Vomiting Verified 03/14/23 17:52 adhesive Allergy Intermediate localized Verified 03/14/23 17:52 rash sumatriptan AdvReac Severe vertigo/diz Verified 03/14/23 17:52 ziness/naus ea Home Meds Home Medications Medication Instructions Recorded Confirmed lorazepam 0.5 mg tablet 0.5 mg PO DAILY PRN Anxiety 10/04/20 03/14/23 hydroxychloroquine 200 mg tablet 400 mg PO QAM 12/19/22 03/14/23 (Plaquenil) montelukast 10 mg tablet 10 mg PO QAM 12/19/22 03/14/23 (Singulair) venlafaxine 75 mg capsule,extended 75 mg PO QAM 01/23/23 03/14/23 release 24 hr albuterol sulfate 90 mcg/actuation 2 puff inhalation Q4H PRN Wheezing 03/14/23 03/14/23 aerosol inhaler cyanocobalamin (vitamin B-12) 1,000 mcg sublingual QAM 03/14/23 03/14/23 1,000 mcg sublingual tablet omeprazole 40 mg capsule,delayed 40 mg PO DAILYBB 03/14/23 03/14/23 release Previous Rx's Medication Instructions Recorded Oxygen Home #1 ea 10/09/20 Results & Data (ED) Vital Signs Vital Signs - 24 hr 03/14/23 17:27 03/14/23 17:27 03/14/23 17:27 Temperature 36.6 C Temperature Source Temporal Artery Scan Pulse Rate 172 H Pulse Rate [Apical] Pulse Rate from SpO2 Sensor Respiratory Rate 18 18 Respiratory Effort / Characteristics Respiratory Depth Respiratory Pattern Blood Pressure 112/67 Blood Pressure [Left Arm] Blood Pressure Mean 82 Blood Pressure Mean [Left Arm] Pulse Oximetry 100 Oxygen Delivery Method Mechanical Vent Fraction of Inspired Oxygen SaO2/FiO2 Ratio Sepsis Recent Fever Within 48 Hours No Sepsis New/Unexplained Change in Mental Status N/A Sepsis Action Taken by Nursing No Action Required End-Tidal CO2 03/14/23 17:42 03/14/23 17:44 03/14/23 17:50 Temperature Temperature Source Pulse Rate 143 H 149 H 180 H Pulse Rate [Apical] Pulse Rate from SpO2 Sensor 113 H Respiratory Rate 19 18 Respiratory Effort / Characteristics Respiratory Depth Respiratory Pattern Blood Pressure Blood Pressure [Left Arm] Blood Pressure Mean Blood Pressure Mean [Left Arm] Pulse Oximetry 83 L Oxygen Delivery Method Fraction of Inspired Oxygen SaO2/FiO2 Ratio Sepsis Recent Fever Within 48 Hours Sepsis New/Unexplained Change in Mental Status Sepsis Action Taken by Nursing End-Tidal CO2 03/14/23 17:51 03/14/23 17:51 03/14/23 17:53 Temperature Temperature Source Pulse Rate 164 H 132 H Pulse Rate [Apical] Pulse Rate from SpO2 Sensor 95 H Respiratory Rate 22 28 H Respiratory Effort / Characteristics Respiratory Depth Respiratory Pattern Blood Pressure 112/67 Blood Pressure [Left Arm] Blood Pressure Mean 73 Blood Pressure Mean [Left Arm] Pulse Oximetry 94 100 Oxygen Delivery Method Mechanical Vent Fraction of Inspired Oxygen 60 SaO2/FiO2 Ratio 166 Sepsis Recent Fever Within 48 Hours Sepsis New/Unexplained Change in Mental Status Sepsis Action Taken by Nursing End-Tidal CO2 03/14/23 18:00 03/14/23 18:01 03/14/23 18:01 Temperature 30.5 C L Temperature Source Pulse Rate 168 H 148 H Pulse Rate [Apical] Pulse Rate from SpO2 Sensor 88 107 H Respiratory Rate 26 H 26 H Respiratory Effort / Characteristics Respiratory Depth Respiratory Pattern Blood Pressure 57/42 L Blood Pressure [Left Arm] Blood Pressure Mean 44 Blood Pressure Mean [Left Arm] Pulse Oximetry 89 L 89 L Oxygen Delivery Method Fraction of Inspired Oxygen SaO2/FiO2 Ratio Sepsis Recent Fever Within 48 Hours Sepsis New/Unexplained Change in Mental Status Sepsis Action Taken by Nursing End-Tidal CO2 43 43 03/14/23 18:08 03/14/23 18:08 03/14/23 18:10 Temperature 34.5 C L 34.9 C L Temperature Source Pulse Rate 157 H 157 H Pulse Rate [Apical] Pulse Rate from SpO2 Sensor 128 H Respiratory Rate 26 H 26 H Respiratory Effort / Characteristics Respiratory Depth Respiratory Pattern Blood Pressure 99/54 L Blood Pressure [Left Arm] Blood Pressure Mean 65 Blood Pressure Mean [Left Arm] Pulse Oximetry 82 L Oxygen Delivery Method Fraction of Inspired Oxygen SaO2/FiO2 Ratio Sepsis Recent Fever Within 48 Hours Sepsis New/Unexplained Change in Mental Status Sepsis Action Taken by Nursing End-Tidal CO2 44 41 03/14/23 18:20 03/14/23 18:27 03/14/23 18:27 Temperature 36.0 C L Temperature Source Pulse Rate 147 H Pulse Rate [Apical] Pulse Rate from SpO2 Sensor 97 H Respiratory Rate 26 H Respiratory Effort / Characteristics Respiratory Depth Respiratory Pattern Blood Pressure 121/65 121/65 Blood Pressure [Left Arm] Blood Pressure Mean 86 86 Blood Pressure Mean [Left Arm] Pulse Oximetry 100 Oxygen Delivery Method Fraction of Inspired Oxygen SaO2/FiO2 Ratio Sepsis Recent Fever Within 48 Hours Sepsis New/Unexplained Change in Mental Status Sepsis Action Taken by Nursing End-Tidal CO2 42 03/14/23 18:27 03/14/23 18:28 03/14/23 18:59 Temperature 36.3 C L 35.9 C L Temperature Source Pulse Rate 143 H 142 H 124 H Pulse Rate [Apical] Pulse Rate from SpO2 Sensor 75 Respiratory Rate 28 H 28 H 28 H Respiratory Effort / Characteristics Respiratory Depth Respiratory Pattern Blood Pressure Blood Pressure [Left Arm] Blood Pressure Mean Blood Pressure Mean [Left Arm] Pulse Oximetry 100 100 Oxygen Delivery Method Fraction of Inspired Oxygen 80 SaO2/FiO2 Ratio Sepsis Recent Fever Within 48 Hours Sepsis New/Unexplained Change in Mental Status Sepsis Action Taken by Nursing End-Tidal CO2 39 43 38 03/14/23 19:00 03/14/23 19:00 03/14/23 19:05 Temperature 35.9 C L Temperature Source Pulse Rate 135 H 126 H Pulse Rate [Apical] Pulse Rate from SpO2 Sensor 99 H Respiratory Rate 28 H 28 H Respiratory Effort / Characteristics Respiratory Depth Respiratory Pattern Blood Pressure 120/73 Blood Pressure [Left Arm] Blood Pressure Mean 90 Blood Pressure Mean [Left Arm] Pulse Oximetry 99 100 Oxygen Delivery Method Fraction of Inspired Oxygen 80 SaO2/FiO2 Ratio Sepsis Recent Fever Within 48 Hours Sepsis New/Unexplained Change in Mental Status Sepsis Action Taken by Nursing End-Tidal CO2 38 40 03/14/23 19:10 03/14/23 19:10 03/14/23 19:16 Temperature 35.8 C L 35.8 C L Temperature Source Pulse Rate 134 H 130 H Pulse Rate [Apical] Pulse Rate from SpO2 Sensor 104 H 87 Respiratory Rate 28 H 28 H Respiratory Effort / Characteristics Respiratory Depth Respiratory Pattern Blood Pressure 131/69 Blood Pressure [Left Arm] Blood Pressure Mean 102 Blood Pressure Mean [Left Arm] Pulse Oximetry 100 97 Oxygen Delivery Method Fraction of Inspired Oxygen SaO2/FiO2 Ratio Sepsis Recent Fever Within 48 Hours Sepsis New/Unexplained Change in Mental Status Sepsis Action Taken by Nursing End-Tidal CO2 42 42 03/14/23 19:16 03/14/23 19:20 03/14/23 19:20 Temperature 35.8 C L Temperature Source Pulse Rate 124 H Pulse Rate [Apical] Pulse Rate from SpO2 Sensor 112 H Respiratory Rate 28 H Respiratory Effort / Characteristics Respiratory Depth Respiratory Pattern Blood Pressure 132/72 112/89 Blood Pressure [Left Arm] Blood Pressure Mean 104 94 Blood Pressure Mean [Left Arm] Pulse Oximetry 100 Oxygen Delivery Method Fraction of Inspired Oxygen SaO2/FiO2 Ratio Sepsis Recent Fever Within 48 Hours Sepsis New/Unexplained Change in Mental Status Sepsis Action Taken by Nursing End-Tidal CO2 42 03/14/23 19:30 03/14/23 19:30 03/14/23 19:30 Temperature 35.8 C L Temperature Source Pulse Rate 134 H Pulse Rate [Apical] 126 H Pulse Rate from SpO2 Sensor 101 H Respiratory Rate 28 H 28 H Respiratory Effort / Characteristics Non-Labored Spontaneous Respiratory Depth Normal Respiratory Pattern Regular Blood Pressure 144/89 H Blood Pressure [Left Arm] 144/89 H Blood Pressure Mean 122 Blood Pressure Mean [Left Arm] 107 Pulse Oximetry 97 97 Oxygen Delivery Method Mechanical Vent Fraction of Inspired Oxygen SaO2/FiO2 Ratio Sepsis Recent Fever Within 48 Hours Sepsis New/Unexplained Change in Mental Status Sepsis Action Taken by Nursing End-Tidal CO2 39 03/14/23 19:36 03/14/23 19:36 03/14/23 19:40 Temperature 35.8 C L 35.8 C L Temperature Source Pulse Rate 140 H 129 H Pulse Rate [Apical] Pulse Rate from SpO2 Sensor 116 H 97 H Respiratory Rate 28 H 28 H Respiratory Effort / Characteristics Respiratory Depth Respiratory Pattern Blood Pressure 136/88 Blood Pressure [Left Arm] Blood Pressure Mean 90 Blood Pressure Mean [Left Arm] Pulse Oximetry 98 100 Oxygen Delivery Method Fraction of Inspired Oxygen SaO2/FiO2 Ratio Sepsis Recent Fever Within 48 Hours Sepsis New/Unexplained Change in Mental Status Sepsis Action Taken by Nursing End-Tidal CO2 40 41 03/14/23 19:42 03/14/23 19:42 03/14/23 19:47 Temperature 35.7 C L Temperature Source Pulse Rate 133 H Pulse Rate [Apical] Pulse Rate from SpO2 Sensor 102 H Respiratory Rate 28 H Respiratory Effort / Characteristics Respiratory Depth Respiratory Pattern Blood Pressure 108/84 128/79 Blood Pressure [Left Arm] Blood Pressure Mean 100 100 Blood Pressure Mean [Left Arm] Pulse Oximetry 99 Oxygen Delivery Method Fraction of Inspired Oxygen SaO2/FiO2 Ratio Sepsis Recent Fever Within 48 Hours Sepsis New/Unexplained Change in Mental Status Sepsis Action Taken by Nursing End-Tidal CO2 40 03/14/23 19:47 03/14/23 20:10 03/14/23 20:11 Temperature 35.7 C L 35.5 C L Temperature Source Pulse Rate 132 H Pulse Rate [Apical] Pulse Rate from SpO2 Sensor 88 110 H Respiratory Rate 28 H 28 H Respiratory Effort / Characteristics Respiratory Depth Respiratory Pattern Blood Pressure 107/86 Blood Pressure [Left Arm] Blood Pressure Mean 92 Blood Pressure Mean [Left Arm] Pulse Oximetry 99 100 Oxygen Delivery Method Fraction of Inspired Oxygen SaO2/FiO2 Ratio Sepsis Recent Fever Within 48 Hours Sepsis New/Unexplained Change in Mental Status Sepsis Action Taken by Nursing End-Tidal CO2 39 39 03/14/23 20:11 03/14/23 20:16 03/14/23 20:16 Temperature 35.4 C L 35.5 C L Temperature Source Pulse Rate Pulse Rate [Apical] Pulse Rate from SpO2 Sensor 123 H 93 H Respiratory Rate 28 H 28 H Respiratory Effort / Characteristics Respiratory Depth Respiratory Pattern Blood Pressure 106/85 Blood Pressure [Left Arm] Blood Pressure Mean 96 Blood Pressure Mean [Left Arm] Pulse Oximetry 100 96 Oxygen Delivery Method Fraction of Inspired Oxygen SaO2/FiO2 Ratio Sepsis Recent Fever Within 48 Hours Sepsis New/Unexplained Change in Mental Status Sepsis Action Taken by Nursing End-Tidal CO2 37 40 03/14/23 20:20 03/14/23 20:21 03/14/23 20:21 Temperature 35.5 C L 35.5 C L Temperature Source Pulse Rate Pulse Rate [Apical] Pulse Rate from SpO2 Sensor 133 H 139 H Respiratory Rate 20 28 H Respiratory Effort / Characteristics Respiratory Depth Respiratory Pattern Blood Pressure 161/117 H Blood Pressure [Left Arm] Blood Pressure Mean 137 Blood Pressure Mean [Left Arm] Pulse Oximetry 94 90 Oxygen Delivery Method Fraction of Inspired Oxygen SaO2/FiO2 Ratio Sepsis Recent Fever Within 48 Hours Sepsis New/Unexplained Change in Mental Status Sepsis Action Taken by Nursing End-Tidal CO2 41 41 03/14/23 20:30 03/14/23 20:31 03/14/23 20:31 Temperature 35.6 C L 35.6 C L Temperature Source Pulse Rate 124 H 132 H Pulse Rate [Apical] Pulse Rate from SpO2 Sensor 131 H 134 H Respiratory Rate 28 H 28 H Respiratory Effort / Characteristics Respiratory Depth Respiratory Pattern Blood Pressure 122/92 Blood Pressure [Left Arm] Blood Pressure Mean 98 Blood Pressure Mean [Left Arm] Pulse Oximetry 98 95 Oxygen Delivery Method Fraction of Inspired Oxygen SaO2/FiO2 Ratio Sepsis Recent Fever Within 48 Hours Sepsis New/Unexplained Change in Mental Status Sepsis Action Taken by Nursing End-Tidal CO2 40 38 03/14/23 20:36 03/14/23 20:36 03/14/23 20:40 Temperature 35.6 C L 35.6 C L Temperature Source Pulse Rate 141 H 128 H Pulse Rate [Apical] Pulse Rate from SpO2 Sensor 90 117 H Respiratory Rate 28 H 28 H Respiratory Effort / Characteristics Respiratory Depth Respiratory Pattern Blood Pressure 109/88 Blood Pressure [Left Arm] Blood Pressure Mean 91 Blood Pressure Mean [Left Arm] Pulse Oximetry 99 99 Oxygen Delivery Method Fraction of Inspired Oxygen SaO2/FiO2 Ratio Sepsis Recent Fever Within 48 Hours Sepsis New/Unexplained Change in Mental Status Sepsis Action Taken by Nursing End-Tidal CO2 38 37 03/14/23 20:46 03/14/23 20:46 Temperature 35.6 C L Temperature Source Pulse Rate 126 H Pulse Rate [Apical] Pulse Rate from SpO2 Sensor 112 H Respiratory Rate 28 H Respiratory Effort / Characteristics Respiratory Depth Respiratory Pattern Blood Pressure 136/93 Blood Pressure [Left Arm] Blood Pressure Mean 120 Blood Pressure Mean [Left Arm] Pulse Oximetry 98 Oxygen Delivery Method Fraction of Inspired Oxygen SaO2/FiO2 Ratio Sepsis Recent Fever Within 48 Hours Sepsis New/Unexplained Change in Mental Status Sepsis Action Taken by Nursing End-Tidal CO2 39 Home Medications Current Medication List: was personally reviewed by me Laboratory Data Attestation: I reviewed the patient's lab results. 03/15/23 10:24 03/15/23 04:39 Lab Results 03/14/23 03/14/23 03/14/23 Range/Units 17:56 17:58 18:23 WBC 8.32 (4.8-10.8) K/ul RBC 4.97 (4.20-5.40) M/uL Hgb 12.3 (12.0-16.0) g/dl POC Hgb 13.3 11.6 L (12.0-16.0) g/dl Hct 40.6 (37.0-47.0) % POC Hct 39 34 L (37-47) % MCV 81.7 (80.0-100.0) fL MCH 24.7 L (25.0-34.0) pg MCHC 30.3 L (32.0-36.0) g/dL RDW Std Deviation 42.9 (36.4-46.3) fL RDW Coeff of Dionicio 14.4 (11.5-14.5) % Plt Count 266 (130-400) K/uL MPV 10.1 (9.4-12.4) fL Immature Gran % (Auto) 1.4 % Neut % (Auto) 61.7 % Lymph % (Auto) 29.3 % [place] % (Auto) 5.9 % Eos % (Auto) 1.3 % Baso % (Auto) 0.4 % Neut # (Auto) 5.13 (1.40-6.50) K/uL Lymph # (Auto) 2.44 (1.20-3.40) K/uL [place] # (Auto) 0.49 (0.11-0.59) K/uL Eos # (Auto) 0.11 (0.00-0.50) K/uL Baso # (Auto) 0.03 (0.00-0.20) K/uL Immature Gran # (Auto) 0.12 (0.01-0.20) K/uL PT 11.2 (9.0-12.0) Seconds INR 1.0 (0.9-1.1) APTT 24 (21-31) Seconds PTT Ratio 0.9 POC pH 7.22 L (7.35-7.45) POC pCO2 49 H (35-46) mmHg POC pO2 259 H (80-95) mmHg POC HCO3 20 (19-24) maggi/L POC Base Excess -8.0 (-9-1.8) maggi/L POC ABG O2 Sat 100.0 H (90-95) % POC Sodium 142 141 (135-144) mmol/L Sodium 139 (136-145) mmol/L POC Potassium 3.6 3.3 (3.3-5.0) mmol/L Potassium 3.6 (3.5-5.1) mmol/L POC Chloride 104 (101-112) mmol/L Chloride 107 (98-107) mmol/L Carbon Dioxide 23 (21-32) mmol/L POC Total CO2 22 L 21 L (24-31) mmol/L Anion Gap 9 (3-11) POC Anion Gap 20.0 (16-25) mmol/L POC BUN 17 (7-18) mg/dl BUN 20 (6-23) mg/dl Creatinine 1.20 (0.6-1.2) mg/dl POC Creatinine 1.2 (0.6-1.3) mg/dl Est Cr Clr Drug Dosing 110.3 ml/min Est GFR ( Amer) 61.9 ml/min Est GFR (Non-Af Amer) 53.4 ml/min BUN/Creatinine Ratio 16.7 (10-20) Glucose 172 H (70-99(Fasting)) mg/dl POC Glucose (other) 162 H (70-99) mg/dl Lactate 3.1 H* (0.4-2.0) mmol/L Calcium 8.1 L (8.6-10.3) mg/dl POC Ioniz Calcium Trudi 1.12 (1.12-1.32) mmol/l Magnesium 1.9 (1.7-2.4) mg/dl Total Bilirubin 0.6 (0.2-1.0) mg/dl Direct Bilirubin 0.1 (0-0.2) mg/dl AST 74 H (13-39) U/L ALT 76 H (7-52) U/L Alkaline Phosphatase 88 (34-104) U/L Ammonia (18-72) umol/L Troponin I High Sens 11.6 (0-14) pg/ml B-Natriuretic Peptide 77 (0-100) pg/ml Total Protein 6.9 (6.0-8.3) gm/dl Albumin 3.9 (3.4-5.0) gm/dl Procalcitonin < 0.05 (0-0.5) ng/ml TSH 8.626 H (0.300-4.500) uIu/ml Free T4 0.71 (0.61-1.60) ng/dl Urine Color Urine Appearance (Clear) Urine pH (4.5-7.5) Ur Specific [place] (1.000-1.030) Urine Protein (Negative) Urine Glucose (UA) (Negative) Urine Ketones (Negative) Urine Blood (Negative) Urine Nitrite (Negative) Urine Bilirubin (Negative) Urine Urobilinogen (Negative) Ur Leukocyte Esterase (Negative) Urine WBC (Auto) (0-5) /hpf Urine RBC (Auto) (0-4) /hpf U Hyaline Cast (Auto) (0-5) /lpf U Epithel Cells (Auto) (0-5) /lpf Urine Bacteria (Auto) (Negative) Urine Yeast Nasal Screen MRSA (PCR) (Negative) Urine Opiates Screen (Neg) Ur Methadone, Qual (Neg) Urine Barbiturates (Neg) Ur Phencyclidine (PCP) (Neg) U Amphetamin/Meth Scrn (Neg) MDMA (Ecstasy) Screen (Neg) U Benzodiazepines Scrn (Neg) Ur Cocaine Metabolite (Neg) U Marijuana (THC) Screen (Neg) 03/14/23 03/14/23 03/14/23 Range/Units 19:14 19:40 19:42 WBC (4.8-10.8) K/ul RBC (4.20-5.40) M/uL Hgb (12.0-16.0) g/dl POC Hgb 12.2 (12.0-16.0) g/dl Hct (37.0-47.0) % POC Hct 36 L (37-47) % MCV (80.0-100.0) fL MCH (25.0-34.0) pg MCHC (32.0-36.0) g/dL RDW Std Deviation (36.4-46.3) fL RDW Coeff of Dionicio (11.5-14.5) % Plt Count (130-400) K/uL MPV (9.4-12.4) fL Immature Gran % (Auto) % Neut % (Auto) % Lymph % (Auto) % [place] % (Auto) % Eos % (Auto) % Baso % (Auto) % Neut # (Auto) (1.40-6.50) K/uL Lymph # (Auto) (1.20-3.40) K/uL [place] # (Auto) (0.11-0.59) K/uL Eos # (Auto) (0.00-0.50) K/uL Baso # (Auto) (0.00-0.20) K/uL Immature Gran # (Auto) (0.01-0.20) K/uL PT (9.0-12.0) Seconds INR (0.9-1.1) APTT (21-31) Seconds PTT Ratio POC pH 7.24 L (7.35-7.45) POC pCO2 49 H (35-46) mmHg POC pO2 212 H (80-95) mmHg POC HCO3 21 (19-24) maggi/L POC Base Excess -7.0 (-9-1.8) maggi/L POC ABG O2 Sat 100.0 H (90-95) % POC Sodium 140 (135-144) mmol/L Sodium (136-145) mmol/L POC Potassium 3.6 (3.3-5.0) mmol/L Potassium (3.5-5.1) mmol/L POC Chloride (101-112) mmol/L Chloride (98-107) mmol/L Carbon Dioxide (21-32) mmol/L POC Total CO2 22 L (24-31) mmol/L Anion Gap (3-11) POC Anion Gap (16-25) mmol/L POC BUN (7-18) mg/dl BUN (6-23) mg/dl Creatinine (0.6-1.2) mg/dl POC Creatinine (0.6-1.3) mg/dl Est Cr Clr Drug Dosing ml/min Est GFR ( Amer) ml/min Est GFR (Non-Af Amer) ml/min BUN/Creatinine Ratio (10-20) Glucose (70-99(Fasting)) mg/dl POC Glucose (other) (70-99) mg/dl Lactate (0.4-2.0) mmol/L Calcium (8.6-10.3) mg/dl POC Ioniz Calcium Trudi (1.12-1.32) mmol/l Magnesium (1.7-2.4) mg/dl Total Bilirubin (0.2-1.0) mg/dl Direct Bilirubin (0-0.2) mg/dl AST (13-39) U/L ALT (7-52) U/L Alkaline Phosphatase (34-104) U/L Ammonia (18-72) umol/L Troponin I High Sens (0-14) pg/ml B-Natriuretic Peptide (0-100) pg/ml Total Protein (6.0-8.3) gm/dl Albumin (3.4-5.0) gm/dl Procalcitonin (0-0.5) ng/ml TSH (0.300-4.500) uIu/ml Free T4 (0.61-1.60) ng/dl Urine Color Yellow Urine Appearance Cloudy A (Clear) Urine pH 8.0 H (4.5-7.5) Ur Specific [place] 1.025 (1.000-1.030) Urine Protein 3+ H (Negative) Urine Glucose (UA) Trace H (Negative) Urine Ketones Negative (Negative) Urine Blood 2+ H (Negative) Urine Nitrite Negative (Negative) Urine Bilirubin Negative (Negative) Urine Urobilinogen Negative (Negative) Ur Leukocyte Esterase Negative (Negative) Urine WBC (Auto) >30 H (0-5) /hpf Urine RBC (Auto) 5-10 H (0-4) /hpf U Hyaline Cast (Auto) 5-10 H (0-5) /lpf U Epithel Cells (Auto) 20-30 H (0-5) /lpf Urine Bacteria (Auto) Negative (Negative) Urine Yeast Not Reportable Nasal Screen MRSA (PCR) Negative (Negative) Urine Opiates Screen Neg (Neg) Ur Methadone, Qual Neg (Neg) Urine Barbiturates Neg (Neg) Ur Phencyclidine (PCP) Neg (Neg) U Amphetamin/Meth Scrn Neg (Neg) MDMA (Ecstasy) Screen Neg (Neg) U Benzodiazepines Scrn Neg (Neg) Ur Cocaine Metabolite Neg (Neg) U Marijuana (THC) Screen Neg (Neg) 03/14/23 Range/Units 20:40 WBC (4.8-10.8) K/ul RBC (4.20-5.40) M/uL Hgb (12.0-16.0) g/dl POC Hgb (12.0-16.0) g/dl Hct (37.0-47.0) % POC Hct (37-47) % MCV (80.0-100.0) fL MCH (25.0-34.0) pg MCHC (32.0-36.0) g/dL RDW Std Deviation (36.4-46.3) fL RDW Coeff of Dionicio (11.5-14.5) % Plt Count (130-400) K/uL MPV (9.4-12.4) fL Immature Gran % (Auto) % Neut % (Auto) % Lymph % (Auto) % [place] % (Auto) % Eos % (Auto) % Baso % (Auto) % Neut # (Auto) (1.40-6.50) K/uL Lymph # (Auto) (1.20-3.40) K/uL [place] # (Auto) (0.11-0.59) K/uL Eos # (Auto) (0.00-0.50) K/uL Baso # (Auto) (0.00-0.20) K/uL Immature Gran # (Auto) (0.01-0.20) K/uL PT (9.0-12.0) Seconds INR (0.9-1.1) APTT (21-31) Seconds PTT Ratio POC pH (7.35-7.45) POC pCO2 (35-46) mmHg POC pO2 (80-95) mmHg POC HCO3 (19-24) maggi/L POC Base Excess (-9-1.8) maggi/L POC ABG O2 Sat (90-95) % POC Sodium (135-144) mmol/L Sodium (136-145) mmol/L POC Potassium (3.3-5.0) mmol/L Potassium (3.5-5.1) mmol/L POC Chloride (101-112) mmol/L Chloride (98-107) mmol/L Carbon Dioxide (21-32) mmol/L POC Total CO2 (24-31) mmol/L Anion Gap (3-11) POC Anion Gap (16-25) mmol/L POC BUN (7-18) mg/dl BUN (6-23) mg/dl Creatinine (0.6-1.2) mg/dl POC Creatinine (0.6-1.3) mg/dl Est Cr Clr Drug Dosing ml/min Est GFR ( Amer) ml/min Est GFR (Non-Af Amer) ml/min BUN/Creatinine Ratio (10-20) Glucose (70-99(Fasting)) mg/dl POC Glucose (other) (70-99) mg/dl Lactate 4.2 H* (0.4-2.0) mmol/L Calcium (8.6-10.3) mg/dl POC Ioniz Calcium Trudi (1.12-1.32) mmol/l Magnesium (1.7-2.4) mg/dl Total Bilirubin (0.2-1.0) mg/dl Direct Bilirubin (0-0.2) mg/dl AST (13-39) U/L ALT (7-52) U/L Alkaline Phosphatase (34-104) U/L Ammonia 59.0 (18-72) umol/L Troponin I High Sens (0-14) pg/ml B-Natriuretic Peptide (0-100) pg/ml Total Protein (6.0-8.3) gm/dl Albumin (3.4-5.0) gm/dl Procalcitonin (0-0.5) ng/ml TSH (0.300-4.500) uIu/ml Free T4 (0.61-1.60) ng/dl Urine Color Urine Appearance (Clear) Urine pH (4.5-7.5) Ur Specific [place] (1.000-1.030) Urine Protein (Negative) Urine Glucose (UA) (Negative) Urine Ketones (Negative) Urine Blood (Negative) Urine Nitrite (Negative) Urine Bilirubin (Negative) Urine Urobilinogen (Negative) Ur Leukocyte Esterase (Negative) Urine WBC (Auto) (0-5) /hpf Urine RBC (Auto) (0-4) /hpf U Hyaline Cast (Auto) (0-5) /lpf U Epithel Cells (Auto) (0-5) /lpf Urine Bacteria (Auto) (Negative) Urine Yeast Nasal Screen MRSA (PCR) (Negative) Urine Opiates Screen (Neg) Ur Methadone, Qual (Neg) Urine Barbiturates (Neg) Ur Phencyclidine (PCP) (Neg) U Amphetamin/Meth Scrn (Neg) MDMA (Ecstasy) Screen (Neg) U Benzodiazepines Scrn (Neg) Ur Cocaine Metabolite (Neg) U Marijuana (THC) Screen (Neg) Administered Medications Heparin Sodium/Dextrose (Heparin Sodium/Dextrose) 25,000 units in 500 mls @ 0 mls/hr IV .Q0M [facility]; Protocol Stop: 04/13/23 20:14 Last Titration: 03/15/23 15:41 Dose: 2,200 units/hr, 44 mls/hr Documented By: YUDITH Co-signed By: CASEY Titration: 03/15/23 08:23 Dose: 0 units/hr, 0 mls/hr Documented By: YUDITH Co-signed By: CASEY Admin: 03/15/23 08:03 Dose: 2,200 units/hr, 44 mls/hr Documented By: YUDITH Co-signed By: CASEY Titration: 03/15/23 08:03 Dose: Infused Documented By: YUDITH Co-signed By: CASEY Titration: 03/15/23 07:11 Dose: 2,200 units/hr, 44 mls/hr Documented By: YUDITH Co-signed By: TMG Titration: 03/15/23 04:23 Dose: 2,200 units/hr, 44 mls/hr Documented By: TMG Co-signed By: MNM Admin: 03/14/23 20:52 Dose: 2,200 units/hr, 44 mls/hr Documented By: JOSHUA Co-signed By: DENNIS Ceftriaxone Sodium 2,000 mg/ (Dextrose) 50 mls @ 100 mls/hr IV Q12H [facility]; Protocol Stop: 03/25/23 00:00 Last Infusion: 03/15/23 12:21 Dose: Infused Documented By: Admin: 03/15/23 11:51 Dose: 100 mls/hr Documented By: Infusion: 03/15/23 00:54 Dose: Infused Documented By: Admin: 03/14/23 23:38 Dose: 100 mls/hr Documented By: NENA Pantoprazole Sodium 40 mg/ (Syringe) 10 mls @ 5 mls/min IV DAILY@1100 [facility] Stop: 04/14/23 10:59 Last Admin: 03/15/23 11:52 Dose: 5 mls/min Documented By: YUDITH Parenteral Electrolytes (Plasma-Lyte A Ph 7.4) 1,000 mls @ 115 mls/hr IV .Q8H42M [facility] Stop: 04/14/23 00:14 Last Admin: 03/15/23 15:34 Dose: 115 mls/hr Documented By: Infusion: 03/15/23 15:34 Dose: Infused Documented By: Admin: 03/15/23 07:13 Dose: 115 mls/hr Documented By: Infusion: 03/15/23 07:13 Dose: Infused Documented By: Admin: 03/15/23 00:40 Dose: 115 mls/hr Documented By: NENA Vancomycin HCl 1,000 mg/ (Sodium Chloride) 270 mls @ 200 mls/hr IV Q8H [facility] Stop: 03/25/23 15:59 Last Admin: 03/15/23 15:34 Dose: 200 mls/hr Documented By: CASEY Miscellaneous (Icu Protocol For Hyperglycemia) 1 each N/A ACHS [facility] Stop: 03/17/23 07:29 Last Admin: 03/15/23 11:51 Dose: Not Given Documented By: Admin: 03/15/23 11:48 Dose: Not Given Documented By: YUDITH Discontinued Medications Dexamethasone (Dexamethasone Sod Inj 4 Mg/Ml Vial) 10 mg IV NOW STA Stop: 03/14/23 22:45 Last Admin: 03/15/23 00:44 Dose: 10 mg Documented By: NENA Fentanyl Citrate (Fentanyl Bolus From Bag) 50 mcg IV Q1H PRN PRN Reason: Pain or Agitation Stop: 03/28/23 20:35 Last Admin: 03/14/23 21:16 Dose: 50 mcg Documented By: JOSHUA Co-signed By: HORACIO Gadobutrol (Gadobutrol 65ml Vial) 20.8 ml IV ONCE ONE Stop: 03/14/23 22:54 Last Admin: 03/14/23 22:54 Dose: 20.8 ml Documented By: ALYCE Heparin Sodium/Dextrose (Heparin Iv Adult Wt-Based Standard *No* Initial Bolus Protocol) 1 each IV ONE STA; Protocol Stop: 03/14/23 19:53 Last Admin: 03/14/23 21:01 Dose: Not Given Documented By: JOSHUA Cefepime HCl (Maxipime) 2,000 mg in 20 mls @ 5 mls/min IV NOW STA; Protocol Stop: 03/14/23 17:55 Last Admin: 03/14/23 19:05 Dose: 5 mls/min Documented By: CARLOS Sodium Chloride (Nss) 1,000 mls @ 999 mls/hr IV .Q1H1M ONE Stop: 03/14/23 19:03 Last Infusion: 03/14/23 20:06 Dose: Infused Documented By: Admin: 03/14/23 19:05 Dose: 999 mls/hr Documented By: CARLOS Fentanyl Citrate (Fentanyl Citrate) 2,500 mcg in 250 mls @ 0 mls/hr IV .Q0M [facility]; Protocol Stop: 03/28/23 18:14 Last Titration: 03/15/23 09:15 Dose: Infused Documented By: YUDITH Co-signed By: CASEY Titration: 03/15/23 06:20 Dose: 0 mcg/hr, 0 mls/hr Documented By: NENA Co-signed By: ARR Titration: 03/14/23 20:41 Dose: 50 mcg/hr, 5 mls/hr Documented By: JOSHUA Co-signed By: HORACIO Admin: 03/14/23 19:05 Dose: 25 mcg/hr, 2.5 mls/hr Documented By: CARLOS Co-signed By: JOSHUA Midazolam HCl (Versed) 125 mg in 250 mls @ 2 mls/hr IV .Q96H PRN; Protocol PRN Reason: Sedation Stop: 04/13/23 18:02 Last Titration: 03/15/23 01:40 Dose: Infused Documented By: NENA Co-signed By: FRANSISCO Titration: 03/14/23 21:59 Dose: 1 mg/hr, 2 mls/hr Documented By: JOSHUA Co-signed By: HORACIO Titration: 03/14/23 19:05 Dose: 0 mg/hr, 0 mls/hr Documented By: JOSHUA Co-signed By: HORACIO Admin: 03/14/23 19:05 Dose: 1 mg/hr, 2 mls/hr Documented By: CARLOS Co-signed By: JOSHUA Sodium Chloride (Nss) 1,000 mls @ 999 mls/hr IV .Q1H1M ONE Stop: 03/14/23 19:05 Last Infusion: 03/14/23 20:17 Dose: Infused Documented By: Admin: 03/14/23 19:16 Dose: 999 mls/hr Documented By: JOSHUA Calcium Gluconate () 1,000 mg in 60 mls @ 240 mls/hr IV NOW STA Stop: 03/14/23 18:47 Last Infusion: 03/14/23 19:19 Dose: Infused Documented By: Admin: 03/14/23 19:04 Dose: 240 mls/hr Documented By: JOSHUA Diltiazem HCl 125 mg/ Dextrose 125 mls @ 5 mls/hr IV .Q24H [facility]; Protocol Stop: 04/13/23 19:44 Last Titration: 03/15/23 01:51 Dose: Infused Documented By: NENA Co-signed By: MAL Admin: 03/14/23 20:37 Dose: 5 mg/hr, 5 mls/hr Documented By: JOSHUA Co-signed By: HORACIO Acyclovir Sodium 1,250 mg/ (Dextrose) 275 mls @ 250 mls/hr IV NOW ONE; Protocol Stop: 03/14/23 23:49 Last Infusion: 03/15/23 01:51 Dose: Infused Documented By: Admin: 03/14/23 23:38 Dose: 250 mls/hr Documented By: NENA Vancomycin HCl 2,750 mg/ (Sodium Chloride) 555 mls @ 180 mls/hr IV NOW ONE Stop: 03/15/23 01:48 Last Infusion: 03/15/23 03:20 Dose: Infused Documented By: Admin: 03/14/23 23:38 Dose: 180 mls/hr Documented By: NENA Sodium Chloride (Nss) 1,000 mls @ 125 mls/hr IV .Q8H [facility] Stop: 04/13/23 23:19 Last Admin: 03/15/23 01:51 Dose: Not Given Documented By: NENA Propofol (Diprivan) 1,000 mg in 100 mls @ 0 mls/hr IV .Q0M [facility]; Protocol Stop: 03/17/23 23:19 Last Titration: 03/15/23 13:08 Dose: Infused Documented By: Titration: 03/15/23 06:20 Dose: 0 mcg/kg/min, 0 mls/hr Documented By: Admin: 03/15/23 04:25 Dose: 30 mcg/kg/min, 37.6 mls/hr Documented By: NENA Co-signed By: MAL Titration: 03/15/23 04:16 Dose: Infused Documented By: NENA Co-signed By: MAL Admin: 03/15/23 01:36 Dose: 30 mcg/kg/min, 37.6 mls/hr Documented By: NENA Co-signed By: FRANSISCO Titration: 03/15/23 01:36 Dose: Infused Documented By: NENA Co-signed By: FRANSISCO Admin: 03/14/23 23:39 Dose: 30 mcg/kg/min, 37.6 mls/hr Documented By: TMShaheen Co-signed By: MAL Magnesium Sulfate/Dextrose (Magnesium Sulfate / D5w) 1 gm in 100 mls @ 50 mls/hr IV Q2H [facility] Stop: 03/15/23 04:14 Last Infusion: 03/15/23 04:27 Dose: Infused Documented By: Admin: 03/15/23 02:25 Dose: 50 mls/hr Documented By: Infusion: 03/15/23 02:25 Dose: Infused Documented By: Admin: 03/15/23 00:39 Dose: 50 mls/hr Documented By: NEAN Vancomycin HCl 1,000 mg/ (Sodium Chloride) 270 mls @ 200 mls/hr IV Q12H [facility] Stop: 03/25/23 07:59 Last Infusion: 03/15/23 10:13 Dose: Infused Documented By: Admin: 03/15/23 08:52 Dose: 200 mls/hr Documented By: YUDITH Phenylephrine HCl (Phenylephrine/Nss) 25 mg in 250 mls @ 62.67 mls/hr IV .Q4H [facility]; Protocol Stop: 04/14/23 00:48 Last Titration: 03/15/23 13:08 Dose: Infused Documented By: CASEY Co-signed By: YUDITH Admin: 03/15/23 11:48 Dose: Not Given Documented By: Titration: 03/15/23 06:20 Dose: 0 mcg/kg/min, 0 mls/hr Documented By: TMG Co-signed By: CHELA Admin: 03/15/23 06:00 Dose: 0.2 mcg/kg/min, 25.1 mls/hr Documented By: NENA Co-signed By: FRANSISCO Titration: 03/15/23 05:28 Dose: Infused Documented By: TMShaheen Co-signed By: FRANSISCO Titration: 03/15/23 04:26 Dose: 0.2 mcg/kg/min, 25.1 mls/hr Documented By: TMShaheen Co-signed By: MAL Titration: 03/15/23 04:23 Dose: 0.3 mcg/kg/min, 37.6 mls/hr Documented By: TMShaheen Co-signed By: MAL Titration: 03/15/23 01:36 Dose: 0.5 mcg/kg/min, 62.7 mls/hr Documented By: TMShaheen Co-signed By: FRANSISCO Titration: 03/15/23 01:16 Dose: 0.7 mcg/kg/min, 87.7 mls/hr Documented By: TMShaheen Co-signed By: FRANSISCO Admin: 03/15/23 00:58 Dose: 0.5 mcg/kg/min, 62.7 mls/hr Documented By: TMG Co-signed By: FRANSISCO Parenteral Electrolytes (Plasma-Lyte A Ph 7.4) 250 mls @ 999 mls/hr IV .Q16M ONE Stop: 03/15/23 01:04 Last Infusion: 03/15/23 01:52 Dose: Infused Documented By: Admin: 03/15/23 00:58 Dose: 999 mls/hr Documented By: NENA Sodium Phosphate 12 mmol/ (Dextrose) 254 mls @ 125 mls/hr IV ONE ONE Stop: 03/15/23 08:31 Last Infusion: 03/15/23 09:31 Dose: Infused Documented By: Admin: 03/15/23 06:32 Dose: 125 mls/hr Documented By: NENA Ioversol (Optiray 320 125ml) 113 ml IV ONCE ONE Stop: 03/14/23 18:59 Last Admin: 03/14/23 21:00 Dose: Not Given Documented By: JOSHUA Ioversol (Optiray 320 125ml) 113 ml IV ONCE ONE Stop: 03/14/23 18:59 Last Admin: 03/14/23 18:59 Dose: 113 ml Documented By: WAYNE Ioversol (Optiray 320 125ml) 113 ml IV ONCE ONE Stop: 03/14/23 20:06 Last Admin: 03/14/23 20:05 Dose: 113 ml Documented By: WAYNE Lorazepam (Lorazepam 1 Mg/1 Ml Syr Ed Inj Use) Confirm Administered Dose 2 mg .ROUTE .STK-MED ONE Stop: 03/14/23 17:49 Last Admin: 03/14/23 19:05 Dose: 2 mg Documented By: CARLOS Metoprolol Tartrate (Metoprolol Tartrate 1 Mg/Ml Vial) 5 mg IV NOW STA Stop: 03/15/23 00:05 Last Admin: 03/15/23 00:39 Dose: 5 mg Documented By: NENA Midazolam HCl (Midazolam Bolus From Bag) 2 mg IV Q60M PRN PRN Reason: Sedation Stop: 04/13/23 18:02 Last Admin: 03/14/23 22:05 Dose: 2 mg Documented By: JOSHUA Co-signed By: HORACIO Ellison (Rapid Sequence Induction Bag) Confirm Administered Dose 1 each N/A .STK-MED ONE Stop: 03/14/23 17:44 Last Admin: 03/14/23 21:00 Dose: Not Given Documented By: JOSHUA Ellison (Rapid Sequence Induction Bag) Confirm Administered Dose 1 each N/A .STK-MED ONE Stop: 03/14/23 17:46 Last Admin: 03/14/23 21:00 Dose: Not Given Documented By: JOSHUA Ellison (Stat Iv Infusion Titration Per Protocol) 1 each N/A NOW STA Stop: 03/14/23 19:34 Last Admin: 03/14/23 21:00 Dose: Not Given Documented By: JOSHUA Propofol (Propofol Iv Emulsion 10 Mg/Ml 100 Ml Vial) Confirm Administered Dose 1,000 mg IV .Stayzilla-MED ONE Stop: 03/14/23 23:01 Last Admin: 03/15/23 00:25 Dose: Not Given Documented By: NENA Propofol (Propofol Bolus From Bag) 20 mg IV Q5M PRN PRN Reason: Sedation Stop: 03/17/23 23:19 Last Admin: 03/15/23 07:45 Dose: 20 mg Documented By: YUDITH Co-signed By: CASEY Imaging Data Radiologist's Impression: Chest X-Ray 03/14/23 18:34 XR chest 1V portable HISTORY: ET tube placement. COMPARISON: Chest 03/14/2023. FINDINGS: Endotracheal tube is been pulled back and now resides 4.8 cm from the jonna. No pneumothorax. No pleural effusions. The heart remains enlarged. There is mild central pulmonary vascular congestion without overt edema. Left basilar linear densities favor subsegmental atelectasis. IMPRESSION: Endotracheal tube terminates 4.8 cm from the jonna. ACT 112: Negative or not required by law. Electronically signed by: Barrington Santos M.D. 03/15/2023 8:08 AM Chest X-Ray 03/14/23 17:53 XR chest 1V portable HISTORY: 47 years-old Female Sepsis acute sepsis with respiratory failure COMPARISON: 01/23/2023 TECHNIQUE: 3 supine AP views of the chest FINDINGS: 3 views of the chest were obtained and all sent under one session number. The last image obtained at 6:10:59 demonstrates an endotracheal tube with distal tip projected over the right mainstem bronchus. Image obtained at 6:09 demonstrates satisfactory positioning of the endotracheal tube, 2.2 cm superior to the jonna. There is complete opacification of the left hemithorax on the 6:10 exam. No pneumothorax. IMPRESSION: Several images were all inappropriately sent simultaneously rather then three separate studies with different accession numbers. The last time stamped image demonstrates malpositioned endotracheal tube with complete opacification of the left hemithorax. Repositioning with follow-up imaging is needed. ACT 112: Negative or not required by law. The above report was generated using voice recognition software. It may contain grammatical, syntax or spelling errors. Electronically signed by: Hima Valentin M.D. 03/14/2023 6:19 PM Chest CTA 03/14/23 17:54 Exam(s): CTA CHEST IV Amt: 113 ml optiray 320 EXAM: CT Angiography Chest With Intravenous Contrast CLINICAL HISTORY: Reason for exam: PE. TECHNIQUE: Axial computed tomographic angiography images of the chest with intravenous contrast. CTDI is 35.52 mGy and DLP is 1093.75 mGy-cm. Automated exposure control was utilized for the study. A dose lowering technique was utilized adhering to the principles of ALARA. MIP reconstructed images were created and reviewed. COMPARISON: CT chest on 01/23/2023 FINDINGS: Pulmonary arteries: Unremarkable. No definite pulmonary embolus identified, but evaluation of the distal pulmonary arterial branches is limited by motion artifact. Aorta: No acute findings. No aortic aneurysm or dissection. Lungs: Probable dependent atelectasis bilaterally. No mass. Pleural space: Unremarkable. No significant effusion. No pneumothorax. Heart: Cardiomegaly. No significant pericardial effusion. No evidence of RV dysfunction. Bones/joints: Degenerative changes of the spine. No acute fracture. No dislocation. Soft tissues: Unremarkable. Lymph nodes: Unremarkable. No enlarged lymph nodes. Tubes, lines and devices: Endotracheal tube terminates just above the jonna, directed toward the right mainstem bronchus. IMPRESSION: 1. No definite pulmonary embolus identified, but evaluation of the distal pulmonary arterial branches is limited by motion artifact. 2. No aortic aneurysm or dissection. 3. Probable dependent atelectasis bilaterally. Electronically signed by: Mecca Tenorio M.D. 03/14/23 19:[address] 03/14/23 17:54 Exam(s): CT HEAD Without Contrast EXAM: CT Head Without Intravenous Contrast CLINICAL HISTORY: Reason for exam: AMS. TECHNIQUE: Axial computed tomography images of the head/brain without intravenous contrast. CTDI is 73.11 mGy and DLP is 1092.72 mGy-cm. Automated exposure control was utilized for the study. A dose lowering technique was utilized adhering to the principles of ALARA. COMPARISON: None FINDINGS: Brain: No acute infarct or hemorrhage. No extra-axial fluid collection. No mass effect or midline shift. Ventricles and sulci: Normal. No ventriculomegaly or intraventricular hemorrhage. Bones: Normal. No bony lesion or acute fracture. Subcutaneous tissues: Normal. Sinuses: Fluid in the nasal cavity and nasopharynx. Mild mucosal thickening in the left maxillary sinus, right sphenoid sinus, ethmoid air cells, and left frontal sinus. Mastoid air cells: Normal. Orbits: Grossly unremarkable. IMPRESSION: No acute intracranial abnormality. If there is persistent concern for an acute process, consider further evaluation with MRI. Electronically signed by: Mecca Tenorio M.D. 03/14/23 19:34 PM Abdomen/Pelvis CT 03/14/23 18:03 Exam(s): CT ABDOMEN + PELVIS With Contrast IV Amt: 113 ml optiray 320 EXAM: CT Abdomen and Pelvis With Intravenous Contrast CLINICAL HISTORY: Reason for exam: unresponsive, tachy, hypotensive. TECHNIQUE: Axial computed tomography images of the abdomen and pelvis with intravenous contrast. CTDI is 33.52 mGy and DLP is 1987.2 mGy-cm. Automated exposure control was utilized for the study. A dose lowering technique was utilized adhering to the principles of ALARA. CONTRAST: Patient received 113 ml optiray 320 of IV contrast COMPARISON: CT abdomen/pelvis on 01/23/2023 FINDINGS: Lung bases: Please see accompanying CT chest for further details. ABDOMEN: Liver: Hepatomegaly. Gallbladder and bile ducts: Unremarkable. No calcified stones. No ductal dilation. Pancreas: Unremarkable. No mass. No ductal dilation. Spleen: Mild splenomegaly. Adrenals: Unremarkable. No mass. Kidneys and ureters: Unremarkable. No hydronephrosis or obstructing stone. Stomach and bowel: Evaluation of the stomach is limited by underdistention. No mucosal thickening. PELVIS: Appendix: Appendix is not visualized on this exam. Bladder: Gooden catheter in a decompressed bladder which limits evaluation. Reproductive: Unremarkable as visualized. ABDOMEN and PELVIS: Intraperitoneal space: Unremarkable. No free air. No significant fluid collection. Bones/joints: Degenerative changes of the spine. No acute fracture. No dislocation. Soft tissues: Unremarkable. Vasculature: Phleboliths in the pelvis. No abdominal aortic aneurysm. Lymph nodes: Unremarkable. No enlarged lymph nodes. IMPRESSION: No acute findings in the abdomen or pelvis. Electronically signed by: Mecca Tenorio M.D. 03/14/23 19:[address] 03/14/23 18:31 Exam(s): CT C SPINE EXAM: CT Cervical Spine Without Intravenous Contrast CLINICAL HISTORY: Reason for exam: fall. TECHNIQUE: Axial computed tomography images of the cervical spine without intravenous contrast. CTDI is 33.87 mGy and DLP is 715.88 mGy-cm. Automated exposure control was utilized for the study. A dose lowering technique was utilized adhering to the principles of ALARA. COMPARISON: None FINDINGS: Bones: Mild reversal of the normal cervical lordosis. No acute fracture or bony lesion. Disc spaces: No subluxation. Mild degenerative changes of the spine. Soft tissues: Normal. Other: Mild paranasal sinus disease. Patchy densities in the upper lungs could represent atelectasis. Endotracheal tube terminates in the upper/mid thoracic trachea. IMPRESSION: No acute traumatic abnormality. Electronically signed by: Mecca Tenorio M.D. 03/14/23 20:45 PM Chest X-Ray 03/14/23 18:34 XR chest 1V portable HISTORY: ET tube placement. COMPARISON: Chest 03/14/2023. FINDINGS: Endotracheal tube is been pulled back and now resides 4.8 cm from the jonna. No pneumothorax. No pleural effusions. The heart remains enlarged. There is mild central pulmonary vascular congestion without overt edema. Left basilar linear densities favor subsegmental atelectasis. IMPRESSION: Endotracheal tube terminates 4.8 cm from the jonna. ACT 112: Negative or not required by law. Electronically signed by: Barrington Santos M.D. 03/15/2023 8:08 AM Head CTA 03/14/23 19:52 Exam(s): CTA HEAD With Contrast IV Amt: 115 ml optiray 320 EXAM: CT Angiography Head With Intravenous Contrast CLINICAL HISTORY: Reason for exam: confusion. TECHNIQUE: Axial computed tomographic angiography images of the head with intravenous contrast. CTDI is 33.87 mGy and DLP is 715.88 mGy-cm. Automated exposure control was utilized for the study. A dose lowering technique was utilized adhering to the principles of ALARA. MIP reconstructed images were created and reviewed. CONTRAST: Patient received 115 ml optiray 320 of IV contrast COMPARISON: None FINDINGS: Right internal carotid artery: No acute findings. Intracranial segment is patent with no significant stenosis. No aneurysm. Right anterior cerebral artery: Unremarkable. No occlusion or significant stenosis. No aneurysm. Right middle cerebral artery: Unremarkable. No occlusion or significant stenosis. No aneurysm. Right posterior cerebral artery: Unremarkable. No occlusion or significant stenosis. No aneurysm. Right vertebral artery: Unremarkable as visualized. Left internal carotid artery: No acute findings. Intracranial segment is patent with no significant stenosis. No aneurysm. Left anterior cerebral artery: Unremarkable. No occlusion or significant stenosis. No aneurysm. Left middle cerebral artery: Unremarkable. No occlusion or significant stenosis. No aneurysm. Left posterior cerebral artery: Unremarkable. No occlusion or significant stenosis. No aneurysm. Left vertebral artery: Unremarkable as visualized. Basilar artery: Unremarkable. No occlusion or significant stenosis. No aneurysm. Other: Mild mucosal thickening in the maxillary sinuses. Polyp versus venous retention cyst in the right maxillary sinus. Small amount of fluid or mucosal thickening in the sphenoid sinuses. Mild mucosal thickening in the ethmoid air cells and left frontal sinus. IMPRESSION: No significant stenosis, occlusion, or aneurysm in the central or large intracranial arteries. Electronically signed by: Mecca Tenorio M.D. 03/14/23 20:36 PM Neck CTA 03/14/23 19:52 Exam(s): CTA NECK With Contrast IV Amt: 115 ml optiray 320 EXAM: CT Angiography Neck With Intravenous Contrast CLINICAL HISTORY: Reason for exam: confusion. TECHNIQUE: Routine carotid CT angiography protocol was performed with intravenous contrast. NASCET criteria using the distal ICAs for comparison were used for evaluation of stenoses. CTDI is 21.14 mGy and DLP is 782.95 mGy-cm. Automated exposure control was utilized for the study. A dose lowering technique was utilized adhering to the principles of ALARA. MIP reconstructed images were created and reviewed. CONTRAST: Patient received 115 ml optiray 320 of IV contrast COMPARISON: None FINDINGS: VASCULATURE: Right common carotid artery: Unremarkable. No occlusion or significant stenosis. No dissection. Right internal carotid artery: Unremarkable. Extracranial segment is patent with no occlusion or significant stenosis. No dissection. Right external carotid artery: Unremarkable. No occlusion. Right vertebral artery: Unremarkable. No occlusion or significant stenosis. No dissection. Left common carotid artery: Unremarkable. No occlusion or significant stenosis. No dissection. Left internal carotid artery: Unremarkable. Extracranial segment is patent with no occlusion or significant stenosis. No dissection. Left external carotid artery: Unremarkable. No occlusion. Left vertebral artery: Unremarkable. No occlusion or significant stenosis. No dissection. NECK: Bones/joints: Unremarkable. No acute fracture. Soft tissues: Unremarkable. Lymph nodes: Mildly prominent cervical lymph nodes are nonspecific. Lung apices: Densities in the lung apices may represent atelectasis. CAROTID STENOSIS REFERENCE USING NASCET CRITERIA: % ICA stenosis = (1 - narrowest ICA diameter/diameter of distal cervical ICA) x 100. Mild - <50% stenosis. Moderate - 50-69% stenosis. Severe - 70-94% stenosis. Near occlusion - 95-99% stenosis. Occluded - 100% stenosis. IMPRESSION: No significant stenosis, occlusion, or dissection. Mildly prominent cervical lymph nodes are nonspecific. Electronically signed by: Mecca Tenorio M.D. 03/14/23 20:33 PM Brain MRI 03/14/23 20:45 Exam(s): MRI HEAD W/WO Contrast IV Amt: 20.9CC GADAVIST EXAM: MR Head Without and With Intravenous Contrast CLINICAL HISTORY: Reason for exam: cva?. TECHNIQUE: Magnetic resonance images of the head/brain without and with intravenous contrast in multiple planes. CONTRAST: Patient received 20.9CC GADAVIST of IV contrast COMPARISON: Prior CT head, CTA head and neck 03/14/2023 FINDINGS: Brain: Unremarkable. No mass. No hemorrhage. No acute infarct. Ventricles: Unremarkable. No ventriculomegaly. Bones/joints: Unremarkable. No acute fracture. Sinuses: Mild paranasal sinus mucosal thickening in most of the paranasal sinuses. No fluid levels. Right maxillary sinus mucous retention cyst or polyp. Mastoid air cells: Unremarkable as visualized. No mastoid effusion. Orbits: Unremarkable as visualized. IMPRESSION: No acute findings in the head/brain. Electronically signed by: Kacey Mondragon M.D. 03/15/23 00:28 AM Discharge Plan Visit Data Chief Complaint: Cardiac Arrest/CPR ED Provider: Billy Romero Discharge Problem: Respiratory failure requiring intubation, Encephalopathy, Metabolic acidosis, Lactic acidosis, Atrial fibrillation with rapid ventricular response Patient Disposition: Admitted As Inpatient Discharge Instructions Interventions: ED Discharge Assessment Last Done: 03/14/23 21:43
[2023-03-14] MEDS ORDERED: MIDAZOLAM HCL 125 MG/250 ML BAG IV PRN (18:03)
[2023-03-14] MEDS ORDERED: SODIUM CHLORIDE 0.9% 1,000 ML IV ONE ×2 (18:03→18:05)
[2023-03-14] MEDS ORDERED: fentaNYL BOLUS from BAG IV PRN ×2 (18:03→20:36)
[2023-03-14] MEDS ORDERED: MIDAZOLAM BOLUS FROM BAG IV PRN (18:03)
[2023-03-14 18:09] LABS: iSTAT Creatinine 1.2 mg/dl (0.6-1.3); iSTAT Hemoglobin 13.3 g/dl (12.0-16.0); iSTAT Ionized Calcium 1.12 mmol/l (1.12-1.32); iSTAT Potassium 3.6 mmol/L (3.3-5.0)
[2023-03-14 18:11] LABS: Basophils # (auto) 0.03 K/uL (0.00-0.20); Basophils % (auto) 0.4 %; Eosinophils # (auto) 0.11 K/uL (0.00-0.50); Eosinophils % (auto) 1.3 %; Hematocrit (blood only) 40.6 % (37.0-47.0); Hemoglobin 12.3 g/dl (12.0-16.0); Immature Granulocytes # (auto) 0.12 K/uL (0.01-0.20); Immature Granulocytes % (auto) 1.4 %; Lymphocytes # (auto) 2.44 K/uL (1.20-3.40); Lymphocytes % (auto) 29.3 %; Mean Corpuscular Hemoglobin 24.7 pg (25.0-34.0); Mean Corpuscular Hgb Conc 30.3 g/dL (32.0-36.0); Mean Corpuscular Volume 81.7 fL (80.0-100.0); Mean Platelet Volume 10.1 fL (9.4-12.4); Monocytes # (auto) 0.49 K/uL (0.11-0.59); Monocytes % (auto) 5.9 %; Neutrophils # (auto) 5.13 K/uL (1.40-6.50); Neutrophils % (auto) 61.7 %; Platelet Count 266 K/uL (130-400); RDW Coefficient of Variation 14.4 % (11.5-14.5); RDW Standard Deviation 42.9 fL (36.4-46.3); Red Blood Count 4.97 M/uL (4.20-5.40); White Blood Count 8.32 K/ul (4.8-10.8)
[2023-03-14] MEDS ORDERED: fentaNYL citrate 2,500 MCG/250 ML BAG IV SCH (18:15)
--- NOTE | 2023-03-14 18:21 | XRay Report ---
XR chest 1V portable HISTORY: 47 years-old Female Sepsis acute sepsis with respiratory failure COMPARISON: 01/23/2023 TECHNIQUE: 3 supine AP views of the chest FINDINGS: 3 views of the chest were obtained and all sent under one session number. The last image obtained at 6:10:59 demonstrates an endotracheal tube with distal tip projected over the right mainstem bronchus. Image obtained at 6:09 demonstrates satisfactory positioning of the endotracheal tube, 2.2 cm superi or to the jonna. There is complete opacification of the left hemithorax on the 6:10 exam. No pneumot horax. IMPRESSION: Several images were all inappropriately sent simultaneously rather then three separate st udies with different accession numbers. The last time stamped image demonstrates malpositioned endotr acheal tube with complete opacification of the left hemithorax. Repositioning with follow-up imaging is needed. ACT 112: Negative or not required by law. The above report was generated using voice recognition software. It may contain grammatical, syntax o r spelling errors. Electronically signed by: Hima Valentin M.D. 03/14/2023 6:19 PM
[2023-03-14 18:29] LABS: Albumin Level 3.9 gm/dl (3.4-5.0); BUN Creatinine Ratio 16.7 (10-20); Bilirubin Direct 0.1 mg/dl (0-0.2); Bilirubin,Total 0.6 mg/dl (0.2-1.0); Calcium 8.1 mg/dl (8.6-10.3); Creatinine Clr Calc Pharmacy 110.3 ml/min; Est GFR (African American) 61.9 ml/min; Est GFR (Non-African American) 53.4 ml/min; Magnesium 1.9 mg/dl (1.7-2.4); Potassium 3.6 mmol/L (3.5-5.1); Total Protein 6.9 gm/dl (6.0-8.3)
[2023-03-14] MEDS ORDERED: CALCIUM GLUCONATE 1,000 MG/60 ML BAG IV STA (18:33)
[2023-03-14 18:34] LABS: Troponin I High Sensitivity 11.6 pg/ml (0-14)
[2023-03-14 18:37] LABS: iSTAT Arterial Blood Gas HCO3 20 meg/L (19-24); iSTAT Arterial Blood Gas pCO2 49 mmHg (35-46); iSTAT Arterial Blood Gas pH 7.22 (7.35-7.45); iSTAT Arterial Blood Gas pO2 259 mmHg (80-95); iSTAT Carbon Dioxide 21 mmol/L (24-31); iSTAT Hematocrit 34 % (37-47); iSTAT Hemoglobin 11.6 g/dl (12.0-16.0); iSTAT Potassium 3.3 mmol/L (3.3-5.0); iSTAT Sodium 141 mmol/L (135-144)
[2023-03-14 18:51] LABS: Partial Thromboplastin Ratio 0.9; Partial Thromboplastin Time 24 Seconds (21-31); Prothrombin Time 11.2 Seconds (9.0-12.0)
[2023-03-14] MEDS ORDERED: OPTIRAY 320 125ml IV ONE ×3 (18:58→20:05)
[2023-03-14 19:26] LABS: iSTAT Arterial Blood Gas HCO3 21 meg/L (19-24); iSTAT Arterial Blood Gas pCO2 49 mmHg (35-46); iSTAT Arterial Blood Gas pH 7.24 (7.35-7.45); iSTAT Arterial Blood Gas pO2 212 mmHg (80-95); iSTAT Carbon Dioxide 22 mmol/L (24-31); iSTAT Hematocrit 36 % (37-47); iSTAT Hemoglobin 12.2 g/dl (12.0-16.0); iSTAT Potassium 3.6 mmol/L (3.3-5.0); iSTAT Sodium 140 mmol/L (135-144)
--- NOTE | 2023-03-14 19:27 | CT Scan Report ---
Exam(s): CTA CHEST IV Amt: 113 ml optiray 320 EXAM: CT Angiography Chest With Intravenous Contrast CLINICAL HISTORY: Reason for exam: PE. TECHNIQUE: Axial computed tomographic angiography images of the chest with intravenous contrast. CTDI is 35.52 mGy and DLP is 1093.75 mGy-cm. Automated exposure control was utilized for the study. A dose lowering technique was utilized adhering to the principles of ALARA. MIP reconstructed images were created and reviewed. COMPARISON: CT chest on 01/23/2023 FINDINGS: Pulmonary arteries: Unremarkable. No definite pulmonary embolus identified, but evaluation of the distal pulmonary arterial branches is limited by motion artifact. Aorta: No acute findings. No aortic aneurysm or dissection. Lungs: Probable dependent atelectasis bilaterally. No mass. Pleural space: Unremarkable. No significant effusion. No pneumothorax. Heart: Cardiomegaly. No significant pericardial effusion. No evidence of RV dysfunction. Bones/joints: Degenerative changes of the spine. No acute fracture. No dislocation. Soft tissues: Unremarkable. Lymph nodes: Unremarkable. No enlarged lymph nodes. Tubes, lines and devices: Endotracheal tube terminates just above the jonna, directed toward the right mainstem bronchus. IMPRESSION: 1. No definite pulmonary embolus identified, but evaluation of the distal pulmonary arterial branches is limited by motion artifact. 2. No aortic aneurysm or dissection. 3. Probable dependent atelectasis bilaterally. Electronically signed by: Mecca Tenorio M.D. 03/14/23 19:26 PM
--- NOTE | 2023-03-14 19:31 | CT Scan Report ---
Exam(s): CT ABDOMEN + PELVIS With Contrast IV Amt: 113 ml optiray 320 EXAM: CT Abdomen and Pelvis With Intravenous Contrast CLINICAL HISTORY: Reason for exam: unresponsive, tachy, hypotensive. TECHNIQUE: Axial computed tomography images of the abdomen and pelvis with intravenous contrast. CTDI is 33.52 mGy and DLP is 1987.2 mGy-cm. Automated exposure control was utilized for the study. A dose lowering technique was utilized adhering to the principles of ALARA. CONTRAST: Patient received 113 ml optiray 320 of IV contrast COMPARISON: CT abdomen/pelvis on 01/23/2023 FINDINGS: Lung bases: Please see accompanying CT chest for further details. ABDOMEN: Liver: Hepatomegaly. Gallbladder and bile ducts: Unremarkable. No calcified stones. No ductal dilation. Pancreas: Unremarkable. No mass. No ductal dilation. Spleen: Mild splenomegaly. Adrenals: Unremarkable. No mass. Kidneys and ureters: Unremarkable. No hydronephrosis or obstructing stone. Stomach and bowel: Evaluation of the stomach is limited by underdistention. No mucosal thickening. PELVIS: Appendix: Appendix is not visualized on this exam. Bladder: Gooden catheter in a decompressed bladder which limits evaluation. Reproductive: Unremarkable as visualized. ABDOMEN and PELVIS: Intraperitoneal space: Unremarkable. No free air. No significant fluid collection. Bones/joints: Degenerative changes of the spine. No acute fracture. No dislocation. Soft tissues: Unremarkable. Vasculature: Phleboliths in the pelvis. No abdominal aortic aneurysm. Lymph nodes: Unremarkable. No enlarged lymph nodes. IMPRESSION: No acute findings in the abdomen or pelvis. Electronically signed by: Mecca Tenorio M.D. 03/14/23 19:31 PM
[2023-03-14] MEDS ORDERED: STAT IV Infusion **Titration per Protocol STA ×2 (19:33→23:20)
--- NOTE | 2023-03-14 19:35 | CT Scan Report ---
Exam(s): CT HEAD Without Contrast EXAM: CT Head Without Intravenous Contrast CLINICAL HISTORY: Reason for exam: AMS. TECHNIQUE: Axial computed tomography images of the head/brain without intravenous contrast. CTDI is 73.11 mGy and DLP is 1092.72 mGy-cm. Automated exposure control was utilized for the study. A dose lowering technique was utilized adhering to the principles of ALARA. COMPARISON: None FINDINGS: Brain: No acute infarct or hemorrhage. No extra-axial fluid collection. No mass effect or midline shift. Ventricles and sulci: Normal. No ventriculomegaly or intraventricular hemorrhage. Bones: Normal. No bony lesion or acute fracture. Subcutaneous tissues: Normal. Sinuses: Fluid in the nasal cavity and nasopharynx. Mild mucosal thickening in the left maxillary sinus, right sphenoid sinus, ethmoid air cells, and left frontal sinus. Mastoid air cells: Normal. Orbits: Grossly unremarkable. IMPRESSION: No acute intracranial abnormality. If there is persistent concern for an acute process, consider further evaluation with MRI. Electronically signed by: Mecca Tenorio M.D. 03/14/23 19:34 PM
[2023-03-14] MEDS ORDERED: dilTIAZem HCL 125 MG in DEXTROSE 5% 100 ML IV SCH (19:45)
[2023-03-14] MEDS ORDERED: Heparin IV Adult Wt-Based Standard *NO* INITIAL Bolus Protocol IV STA (19:52)
[2023-03-14 20:02] LABS: Appearance Urine Cloudy (Clear); Bacteria Urine Automated Negative (Negative); Bilirubin Urine Negative (Negative); Blood Urine 2+ (Negative); Color Urine Yellow; Epithelial Cell Urine Auto 20-30 /lpf (0-5); Glucose Urine UA Trace (Negative); Ketones Urine Negative (Negative); Leukocyte Esterase Urine Negative (Negative); Nitrite Urine Negative (Negative); Specific Gravity Urine 1.025 (1.000-1.030); Urobilinogen Urine Negative (Negative); WBC Urine Automated >30 /hpf (0-5)
[2023-03-14 20:03] LABS: Protein Urine 3+ (Negative)
--- NOTE | 2023-03-14 20:34 | CT Scan Report ---
Exam(s): CTA NECK With Contrast IV Amt: 115 ml optiray 320 EXAM: CT Angiography Neck With Intravenous Contrast CLINICAL HISTORY: Reason for exam: confusion. TECHNIQUE: Routine carotid CT angiography protocol was performed with intravenous contrast. NASCET criteria using the distal ICAs for comparison were used for evaluation of stenoses. CTDI is 21.14 mGy and DLP is 782.95 mGy-cm. Automated exposure control was utilized for the study. A dose lowering technique was utilized adhering to the principles of ALARA. MIP reconstructed images were created and reviewed. CONTRAST: Patient received 115 ml optiray 320 of IV contrast COMPARISON: None FINDINGS: VASCULATURE: Right common carotid artery: Unremarkable. No occlusion or significant stenosis. No dissection. Right internal carotid artery: Unremarkable. Extracranial segment is patent with no occlusion or significant stenosis. No dissection. Right external carotid artery: Unremarkable. No occlusion. Right vertebral artery: Unremarkable. No occlusion or significant stenosis. No dissection. Left common carotid artery: Unremarkable. No occlusion or significant stenosis. No dissection. Left internal carotid artery: Unremarkable. Extracranial segment is patent with no occlusion or significant stenosis. No dissection. Left external carotid artery: Unremarkable. No occlusion. Left vertebral artery: Unremarkable. No occlusion or significant stenosis. No dissection. NECK: Bones/joints: Unremarkable. No acute fracture. Soft tissues: Unremarkable. Lymph nodes: Mildly prominent cervical lymph nodes are nonspecific. Lung apices: Densities in the lung apices may represent atelectasis. CAROTID STENOSIS REFERENCE USING NASCET CRITERIA: % ICA stenosis = (1 - narrowest ICA diameter/diameter of distal cervical ICA) x 100. Mild - <50% stenosis. Moderate - 50-69% stenosis. Severe - 70-94% stenosis. Near occlusion - 95-99% stenosis. Occluded - 100% stenosis. IMPRESSION: No significant stenosis, occlusion, or dissection. Mildly prominent cervical lymph nodes are nonspecific. Electronically signed by: Mecca Tenorio M.D. 03/14/23 20:33 PM
--- NOTE | 2023-03-14 20:37 | CT Scan Report ---
Exam(s): CTA HEAD With Contrast IV Amt: 115 ml optiray 320 EXAM: CT Angiography Head With Intravenous Contrast CLINICAL HISTORY: Reason for exam: confusion. TECHNIQUE: Axial computed tomographic angiography images of the head with intravenous contrast. CTDI is 33.87 mGy and DLP is 715.88 mGy-cm. Automated exposure control was utilized for the study. A dose lowering technique was utilized adhering to the principles of ALARA. MIP reconstructed images were created and reviewed. CONTRAST: Patient received 115 ml optiray 320 of IV contrast COMPARISON: None FINDINGS: Right internal carotid artery: No acute findings. Intracranial segment is patent with no significant stenosis. No aneurysm. Right anterior cerebral artery: Unremarkable. No occlusion or significant stenosis. No aneurysm. Right middle cerebral artery: Unremarkable. No occlusion or significant stenosis. No aneurysm. Right posterior cerebral artery: Unremarkable. No occlusion or significant stenosis. No aneurysm. Right vertebral artery: Unremarkable as visualized. Left internal carotid artery: No acute findings. Intracranial segment is patent with no significant stenosis. No aneurysm. Left anterior cerebral artery: Unremarkable. No occlusion or significant stenosis. No aneurysm. Left middle cerebral artery: Unremarkable. No occlusion or significant stenosis. No aneurysm. Left posterior cerebral artery: Unremarkable. No occlusion or significant stenosis. No aneurysm. Left vertebral artery: Unremarkable as visualized. Basilar artery: Unremarkable. No occlusion or significant stenosis. No aneurysm. Other: Mild mucosal thickening in the maxillary sinuses. Polyp versus venous retention cyst in the right maxillary sinus. Small amount of fluid or mucosal thickening in the sphenoid sinuses. Mild mucosal thickening in the ethmoid air cells and left frontal sinus. IMPRESSION: No significant stenosis, occlusion, or aneurysm in the central or large intracranial arteries. Electronically signed by: Mecca Tenorio M.D. 03/14/23 20:36 PM
--- NOTE | 2023-03-14 20:45 | CT Scan Report ---
Exam(s): CT C SPINE EXAM: CT Cervical Spine Without Intravenous Contrast CLINICAL HISTORY: Reason for exam: fall. TECHNIQUE: Axial computed tomography images of the cervical spine without intravenous contrast. CTDI is 33.87 mGy and DLP is 715.88 mGy-cm. Automated exposure control was utilized for the study. A dose lowering technique was utilized adhering to the principles of ALARA. COMPARISON: None FINDINGS: Bones: Mild reversal of the normal cervical lordosis. No acute fracture or bony lesion. Disc spaces: No subluxation. Mild degenerative changes of the spine. Soft tissues: Normal. Other: Mild paranasal sinus disease. Patchy densities in the upper lungs could represent atelectasis. Endotracheal tube terminates in the upper/mid thoracic trachea. IMPRESSION: No acute traumatic abnormality. Electronically signed by: Mecca Tenorio M.D. 03/14/23 20:45 PM
--- NOTE | 2023-03-14 20:48 | Critical Care Consultation ---
Date of Consultation March 14, 2023 Assessment & Plan (1) Encephalopathy: (2) Respiratory failure requiring intubation: (3) Metabolic acidosis: (4) Respiratory acidosis: (5) Lactic acidosis: (6) Elevated liver enzymes: Plan Reason Critically Ill: 47 YOF with acute onset of dyspnea followed by respiratory arrest, she remained hypoxic and unresponsive in the EMD requiring emergent intubation and mechanical ventilation, subsequently found to be in what appears new afib with RVR. She will be admitted to follow neurological status as to this point in time has not returned back to baseline, follow respiratory mechanics, and hemodynamics. Neuro - Encephalopathy CAM ICU: - [facility] - At this time remains broad- she is without seizure activity, or previously known illness, not immunocompromised and WBC count is normal. She is with encephalopathy, GCS 6 without withdraw to bilateral upper extremities and no other focal deficits prior to collapsing and is with out a normal return to baseline. - DDX:- Acute stroke, subclinical seizure/status, encephalitis, dural thrombus, metabolic encephalopathy, anoxic injury, toxic exposure, - Initial head CT interpreted as without LVO or large territorial CVA, bleed or mass - CTA of the neck is negative for stenosis, CTA head is negative for stenosis, occlusion, or aneurysm Cervical spine is interpreted as negative - She is noted with hypercarbia on ABG however not overtly severe - Will check ammonia level with acute elevation of LFTs - Sedation with Fentanyl and Propofol- EEG in am or if seizure activity presents itself consider transfer to tertiary care center for continued monitoring and advanced imaging - MRI attempted to be performed here - Consider LP if no improvement, however likely will be difficult secondary to body habitus and currently on heparin infusion - Empirically treat with Decadron/Rocephin/Vanco/Acyclovir - Will be on heparin for Afib which would also cover dural thrombus- however not noted on CTA of head - Follow nuerological exams - Urine tox screen pending - Did discuss case with neurology Dr. Whiteside (sp?) Emily and based off information provided agrees with the above unless MRI shows anything different. Feels currently that this was most likely related to syncope, treat empirically, obtain EEG in morning and re-consult if needed. Appreciate assistance Cardiac - Afib new onset, Shock - Appears as new onset afib with RVR- she is without ischemic STEMI changes on ECG- initial HsCTNI is negative - BP and MAPS are adequate without vasopressor agents - however may need pressors to support rate control- consider BB first - CTA chest is without pericardial effusion - Attempt rate control as hemodynamics allow- - ? there was report of lost pulse however no shock advised and return of pulse was without any pharmacological intervention to the information that was provided Respiratory - Hypercarbic/Hypoxic respiratory failure requiring intubation with mechanical ventilation - Etiology at this time is unclear of her acute failure- CTA inconclusive for PE however no large PE and responded very well to oxygen therapy - respiratory biofire viral panel pending - mild bilateral base infiltrate vs. atelectasis - Will continue with Heparin infusion - Wean ventilatory support as able- ARDSnet LOW PEEP, HIGH FIO2 Algorithm follow peek pressures and driving pressures GI - Fatty liver disease, elevated LFTs - LFTS elevated in acute setting of hypoxia respiratory failure- with normal INR- this is likely from low perfusion/oxygenation will trend in morning - this may also be related to right sided heart failure in setting of chronic PAM, super morbid obesity, or inflammatory RENAL/LYTES - Non gap metabolic acidosis, lactic acidosis, respiratory acidosis - Replace electrolytes as needed - supportive care - unclear at this time of increasing lactic acid0- continue to trend - Gooden to gravity - no acute needs - urine without acute infectious etiology ENDO - Elevated serum glucose without diagnosis of diabetes - she is with protein in urine - ICU hyperglycemic protocol HEME - No acute needs ID - SIRS - Technically meets SIRS criteria with HR, Temp- unknown source at this time. She is without elevated WBC and PCT is negative - however she is with bilateral mild infiltrate on CT chest- likely atelectasis - and will empirically treat for neurologic infection LINES/IV ACCESS - PIV, Gooden catheter, Arterial line, may need CVL as body habitus is making difficult peripheral IV obtainment Continue use of these lines DVT PROPHYLAXIS - SCDS, Heparin infusion DISPO: ICU while intubated and sedated I have personally spent 65 minutes of critical care time in the direct management of this patient. This is a life/limb threatening event. This includes time spent evaluating patient, direct bedside care, chart review, placing orders, interpretation of diagnostic studies, discussion with consultants, patient, and family members, as well as other required patient management activities. This time is exclusive of all separately billable procedures, and teaching time and separate from and in addition to any other critical care service time. Thank you for allowing us to participate in the care of this patient. Please refer to my attending physician's documentation for any further recommendations. History of Present Illness Reason for Consultation: respiratory arrest requiring mechanical ventilation Requesting Physician: Billy Romero MD Attending Physician: Isreal Garcia MD History of Present Illness 47 YOF with medical history of: Super Morbid Obesity with a BMI of 70 kg, fatty liver disease, lymphedema, chronic back pain, anxiety/depression, PAM (CPAP 8), lymph edema. Information obtained in this HPI was obtained from daughter, who was with her today, and her - who report that she has been feeling well over the past few days and had a normal phone conversation with her just prior to this. Reports no new medications or changes to mediations. Patient was transported to [facility] via EMS for respiratory and possible cardiac arrest. The daughter states that her mom, her, and her kids were at a store today where her mom said suddenly she wasn't feeling well and couldn't breathe. The patient sat on a bench and then collapsed falling forward with head striking a shopping cart. The daughter reports yelling and shaking her mother with not response and noting gasping breathing and short period, a few seconds, of shaking. She attempted to roll her mom over but was unable to. 911 was called and upon EMS arrival they were able to roll her mother over and she noted her mom take in a large gasp and that her "face was blue". She also noted a fast hr in the 180s that she reports then went to the 80s and then back to the 130-140s but she was having trouble counting. EMS reportedly attempted to intubate with no success. There was also report of inabilty to feel pulse and AED stated no shock advised. She had a short course of CPR performed reportedly. Upon arrival to the EMD the patient was reportedly continued to struggle to take in breaths as well as encephalopathic not following commands. The Patient was subsequently intubated. She had routine labs performed to include ABG, Blood cultures, CMP, Lactate, HsCTNI, BNP. She was mixed respiratory and metabolic acidosis. She had CT scan of head and neck completed, CTA head and neck, CT abdomen and Pelvis completed. Her ETT has been adjusted following initial CXR. She is also noted to be in what appears new onset AFIB with RVR and was initiated on heparin infusion. Patient evaluated while in B1 in the EMD, she was currently with sedation on hold, is overbreathing and bucking the ventilator. Does not follow commands and no spontaneous movements. She does withdraw lower extremities to pain, No withdraw to bilateral uppers. Pupils are equal 4-3 brisk response bilaterally. No nystagmus. NO other seizure like activity noted. Patient will be admitted to ICU to follow neurological, hemodynamic, and respiratory efforts. Unfortunately unable to get MRI secondary to patient weight. Consider transfer to capable facility if worsening or no improvement in neurological status. Allergies Allergy/AdvReac Type Severity Reaction Status Date / Time Penicillins Allergy Severe Vomiting Verified 03/14/23 17:52 adhesive Allergy Intermediate localized Verified 03/14/23 17:52 rash sumatriptan AdvReac Severe vertigo/diz Verified 03/14/23 17:52 ziness/naus ea Home Medications Medication Instructions Recorded Confirmed Type lorazepam 0.5 mg tablet 0.5 mg PO DAILY PRN Anxiety 10/04/20 03/14/23 History Oxygen Home #1 ea 10/09/20 01/23/23 Rx hydroxychloroquine 200 mg tablet 400 mg PO QAM 12/19/22 03/14/23 History (Plaquenil) montelukast 10 mg tablet 10 mg PO QAM 12/19/22 03/14/23 History (Singulair) venlafaxine 75 mg capsule,extended 75 mg PO QAM 01/23/23 03/14/23 History release 24 hr albuterol sulfate 90 mcg/actuation 2 puff inhalation Q4H PRN Wheezing 03/14/23 03/14/23 History aerosol inhaler cyanocobalamin (vitamin B-12) 1,000 mcg sublingual QAM 03/14/23 03/14/23 History 1,000 mcg sublingual tablet omeprazole 40 mg capsule,delayed 40 mg PO DAILYBB 03/14/23 03/14/23 History release Patient History Medical History Morbid obesity Fatty liver History of COVID-19 09/2020 developed covid pneumonia and treated inpatient at [facility] at the time. no problems since. Seasonal allergies Anxiety Dyspnea on exertion Sleep apnea cpap at night Lymphedema bilateral legs CKD (chronic kidney disease) stage 3 - monitoring GERD (gastroesophageal reflux disease) Lupus Surgical History History of colonoscopy Family History Other No family history of adverse response to anesthesia Social History Smoking Status: Unknown if ever smoked Second Hand Exposure: No; Do You Dip or Chew Tobacco: No; Hx Substance Use: No Preferred Language: Wallisian Communication Ability: Effective Stick Inserter Required: No Beliefs That Will Affect Care: None marital status: Current Living Situation: Spouse and Family Current Living Situation Comment: Lives with and daughter/son in law and grandchildren x2 current occupational status: unemployed Feels Safe at Home: Yes Assistive Devices: CPAP and Glasses Review of Systems Review of Systems: unable to perform secondary to intubation and sedation Physical Exam Physical Exam: PHYSICAL EXAM: General: intubated on mechanical ventilation Head: Normocephalic, atraumatic ENT: mucous membranes moist, no visible tongue biting noted on current limited inspection Neuro: AAO x 0, intubated- GCS- 6T, bilateral withdraw to lower extremities, no withdraw to upper extremities, bucking and overbreathing the vent Chest: equal rise and fall of the chest, no accessory muscle use, auscultation difficulty secondary to body habitus but present on anterior chest, decreased in bases bilaterally Cardiac: irregular rate and rhythm, telemetry reviewed- afib, skin cool dry, cap refill >3 seconds, peripheral pulses +1, nail beds dusky bilateral upper and lower extremities, no JVD, no murmur, Jobst garments on bilateral lower legs GI: NABS x 4 quadrants, soft, obese : Gooden to gravity draining light hi urine Extremities: Normal inspection, no peripheral edema or erythema, calfs nontende r to palpation Psych: Normal mood and affect Skin: no rash or erythema Results & Data Results & Data Vital Signs (Past 12 Hours) Vital Signs Temp Pulse Pulse Resp BP BP Pulse Ox 03/14/23 19:30 126 H 28 H 144/89 H 97 03/14/23 19:10 131/69 03/14/23 19:10 35.8 C L 134 H 28 H 100 03/14/23 19:05 126 H 28 H 100 03/14/23 19:00 35.9 C L 135 H 28 H 99 03/14/23 19:00 120/73 03/14/23 18:59 35.9 C L 124 H 28 H 03/14/23 18:28 142 H 28 H 100 03/14/23 18:27 36.3 C L 143 H 28 H 100 03/14/23 18:27 121/65 03/14/23 18:27 121/65 03/14/23 18:20 36.0 C L 147 H 26 H 100 03/14/23 18:10 34.9 C L 157 H 26 H 03/14/23 18:08 99/54 L 03/14/23 18:08 34.5 C L 157 H 26 H 82 L 03/14/23 18:01 30.5 C L 148 H 26 H 89 L 03/14/23 18:01 57/42 L 03/14/23 18:00 168 H 26 H 89 L 03/14/23 17:53 132 H 28 H 100 03/14/23 17:51 164 H 22 94 03/14/23 17:51 112/67 03/14/23 17:50 180 H 18 83 L 03/14/23 17:44 149 H 03/14/23 17:42 143 H 19 03/14/23 17:27 18 03/14/23 17:27 03/14/23 17:27 36.6 C 172 H 18 112/67 100 O2 Del Method FiO2 03/14/23 19:30 Mechanical Vent 03/14/23 19:10 03/14/23 19:10 03/14/23 19:05 80 03/14/23 19:00 03/14/23 19:00 03/14/23 18:59 03/14/23 18:28 80 03/14/23 18:27 03/14/23 18:27 03/14/23 18:27 03/14/23 18:20 03/14/23 18:10 03/14/23 18:08 03/14/23 18:08 03/14/23 18:01 03/14/23 18:01 03/14/23 18:00 03/14/23 17:53 Mechanical Vent 60 03/14/23 17:51 03/14/23 17:51 03/14/23 17:50 03/14/23 17:44 03/14/23 17:42 03/14/23 17:27 03/14/23 17:27 Mechanical Vent 03/14/23 17:27 Laboratory Results Abnormal lab results 03/14/23 03/14/23 03/14/23 Range/Units 17:56 17:58 18:23 POC Hgb 11.6 L (12.0-16.0) g/dl POC Hct 34 L (37-47) % MCH 24.7 L (25.0-34.0) pg MCHC 30.3 L (32.0-36.0) g/dL POC pH 7.22 L (7.35-7.45) POC pCO2 49 H (35-46) mmHg POC pO2 259 H (80-95) mmHg POC ABG O2 Sat 100.0 H (90-95) % POC Total CO2 22 L 21 L (24-31) mmol/L Glucose 172 H (70-99(Fasting)) mg/dl POC Glucose (other) 162 H (70-99) mg/dl Lactate 3.1 H* (0.4-2.0) mmol/L Calcium 8.1 L (8.6-10.3) mg/dl AST 74 H (13-39) U/L ALT 76 H (7-52) U/L Urine Appearance (Clear) Urine pH (4.5-7.5) Urine Protein (Negative) Urine Glucose (UA) (Negative) Urine Blood (Negative) Urine WBC (Auto) (0-5) /hpf Urine RBC (Auto) (0-4) /hpf U Hyaline Cast (Auto) (0-5) /lpf U Epithel Cells (Auto) (0-5) /lpf 03/14/23 03/14/23 03/14/23 Range/Units 19:14 19:40 20:40 POC Hgb (12.0-16.0) g/dl POC Hct 36 L (37-47) % MCH (25.0-34.0) pg MCHC (32.0-36.0) g/dL POC pH 7.24 L (7.35-7.45) POC pCO2 49 H (35-46) mmHg POC pO2 212 H (80-95) mmHg POC ABG O2 Sat 100.0 H (90-95) % POC Total CO2 22 L (24-31) mmol/L Glucose (70-99(Fasting)) mg/dl POC Glucose (other) (70-99) mg/dl Lactate 4.2 H* (0.4-2.0) mmol/L Calcium (8.6-10.3) mg/dl AST (13-39) U/L ALT (7-52) U/L Urine Appearance Cloudy A (Clear) Urine pH 8.0 H (4.5-7.5) Urine Protein 3+ H (Negative) Urine Glucose (UA) Trace H (Negative) Urine Blood 2+ H (Negative) Urine WBC (Auto) >30 H (0-5) /hpf Urine RBC (Auto) 5-10 H (0-4) /hpf U Hyaline Cast (Auto) 5-10 H (0-5) /lpf U Epithel Cells (Auto) 20-30 H (0-5) /lpf Diagnostic Findings Chest X-Ray 03/14/23 17:53 XR chest 1V portable HISTORY: 47 years-old Female Sepsis acute sepsis with respiratory failure COMPARISON: 01/23/2023 TECHNIQUE: 3 supine AP views of the chest FINDINGS: 3 views of the chest were obtained and all sent under one session number. The last image obtained at 6:10:59 demonstrates an endotracheal tube with distal tip projected over the right mainstem bronchus. Image obtained at 6:09 demonstrates satisfactory positioning of the endotracheal tube, 2.2 cm superior to the jonna. There is complete opacification of the left hemithorax on the 6:10 exam. No pneumothorax. IMPRESSION: Several images were all inappropriately sent simultaneously rather then three separate studies with different accession numbers. The last time stamped image demonstrates malpositioned endotracheal tube with complete opacification of the left hemithorax. Repositioning with follow-up imaging is needed. ACT 112: Negative or not required by law. The above report was generated using voice recognition software. It may contain grammatical, syntax or spelling errors. Electronically signed by: Hima Valentin M.D. 03/14/2023 6:19 PM Chest CTA 03/14/23 17:54 Exam(s): CTA CHEST IV Amt: 113 ml optiray 320 EXAM: CT Angiography Chest With Intravenous Contrast CLINICAL HISTORY: Reason for exam: PE. TECHNIQUE: Axial computed tomographic angiography images of the chest with intravenous contrast. CTDI is 35.52 mGy and DLP is 1093.75 mGy-cm. Automated exposure control was utilized for the study. A dose lowering technique was utilized adhering to the principles of ALARA. MIP reconstructed images were created and reviewed. COMPARISON: CT chest on 01/23/2023 FINDINGS: Pulmonary arteries: Unremarkable. No definite pulmonary embolus identified, but evaluation of the distal pulmonary arterial branches is limited by motion artifact. Aorta: No acute findings. No aortic aneurysm or dissection. Lungs: Probable dependent atelectasis bilaterally. No mass. Pleural space: Unremarkable. No significant effusion. No pneumothorax. Heart: Cardiomegaly. No significant pericardial effusion. No evidence of RV dysfunction. Bones/joints: Degenerative changes of the spine. No acute fracture. No dislocation. Soft tissues: Unremarkable. Lymph nodes: Unremarkable. No enlarged lymph nodes. Tubes, lines and devices: Endotracheal tube terminates just above the jonna, directed toward the right mainstem bronchus. IMPRESSION: 1. No definite pulmonary embolus identified, but evaluation of the distal pulmonary arterial branches is limited by motion artifact. 2. No aortic aneurysm or dissection. 3. Probable dependent atelectasis bilaterally. Electronically signed by: Mecca Tenorio M.D. 03/14/23 19:[address] 03/14/23 17:54 Exam(s): CT HEAD Without Contrast EXAM: CT Head Without Intravenous Contrast CLINICAL HISTORY: Reason for exam: AMS. TECHNIQUE: Axial computed tomography images of the head/brain without intravenous contrast. CTDI is 73.11 mGy and DLP is 1092.72 mGy-cm. Automated exposure control was utilized for the study. A dose lowering technique was utilized adhering to the principles of ALARA. COMPARISON: None FINDINGS: Brain: No acute infarct or hemorrhage. No extra-axial fluid collection. No mass effect or midline shift. Ventricles and sulci: Normal. No ventriculomegaly or intraventricular hemorrhage. Bones: Normal. No bony lesion or acute fracture. Subcutaneous tissues: Normal. Sinuses: Fluid in the nasal cavity and nasopharynx. Mild mucosal thickening in the left maxillary sinus, right sphenoid sinus, ethmoid air cells, and left frontal sinus. Mastoid air cells: Normal. Orbits: Grossly unremarkable. IMPRESSION: No acute intracranial abnormality. If there is persistent concern for an acute process, consider further evaluation with MRI. Electronically signed by: Mecca Tenorio M.D. 03/14/23 19:34 PM Abdomen/Pelvis CT 03/14/23 18:03 Exam(s): CT ABDOMEN + PELVIS With Contrast IV Amt: 113 ml optiray 320 EXAM: CT Abdomen and Pelvis With Intravenous Contrast CLINICAL HISTORY: Reason for exam: unresponsive, tachy, hypotensive. TECHNIQUE: Axial computed tomography images of the abdomen and pelvis with intravenous contrast. CTDI is 33.52 mGy and DLP is 1987.2 mGy-cm. Automated exposure control was utilized for the study. A dose lowering technique was utilized adhering to the principles of ALARA. CONTRAST: Patient received 113 ml optiray 320 of IV contrast COMPARISON: CT abdomen/pelvis on 01/23/2023 FINDINGS: Lung bases: Please see accompanying CT chest for further details. ABDOMEN: Liver: Hepatomegaly. Gallbladder and bile ducts: Unremarkable. No calcified stones. No ductal dilation. Pancreas: Unremarkable. No mass. No ductal dilation. Spleen: Mild splenomegaly. Adrenals: Unremarkable. No mass. Kidneys and ureters: Unremarkable. No hydronephrosis or obstructing stone. Stomach and bowel: Evaluation of the stomach is limited by underdistention. No mucosal thickening. PELVIS: Appendix: Appendix is not visualized on this exam. Bladder: Gooden catheter in a decompressed bladder which limits evaluation. Reproductive: Unremarkable as visualized. ABDOMEN and PELVIS: Intraperitoneal space: Unremarkable. No free air. No significant fluid collection. Bones/joints: Degenerative changes of the spine. No acute fracture. No dislocation. Soft tissues: Unremarkable. Vasculature: Phleboliths in the pelvis. No abdominal aortic aneurysm. Lymph nodes: Unremarkable. No enlarged lymph nodes. IMPRESSION: No acute findings in the abdomen or pelvis. Electronically signed by: Mecca Tenorio M.D. 03/14/23 19:[address] 03/14/23 18:31 Exam(s): CT C SPINE EXAM: CT Cervical Spine Without Intravenous Contrast CLINICAL HISTORY: Reason for exam: fall. TECHNIQUE: Axial computed tomography images of the cervical spine without intravenous contrast. CTDI is 33.87 mGy and DLP is 715.88 mGy-cm. Automated exposure control was utilized for the study. A dose lowering technique was utilized adhering to the principles of ALARA. COMPARISON: None FINDINGS: Bones: Mild reversal of the normal cervical lordosis. No acute fracture or bony lesion. Disc spaces: No subluxation. Mild degenerative changes of the spine. Soft tissues: Normal. Other: Mild paranasal sinus disease. Patchy densities in the upper lungs could represent atelectasis. Endotracheal tube terminates in the upper/mid thoracic trachea. IMPRESSION: No acute traumatic abnormality. Electronically signed by: Mecca Tenorio M.D. 03/14/23 20:45 PM Head CTA 03/14/23 19:52 Exam(s): CTA HEAD With Contrast IV Amt: 115 ml optiray 320 EXAM: CT Angiography Head With Intravenous Contrast CLINICAL HISTORY: Reason for exam: confusion. TECHNIQUE: Axial computed tomographic angiography images of the head with intravenous contrast. CTDI is 33.87 mGy and DLP is 715.88 mGy-cm. Automated exposure control was utilized for the study. A dose lowering technique was utilized adhering to the principles of ALARA. MIP reconstructed images were created and reviewed. CONTRAST: Patient received 115 ml optiray 320 of IV contrast COMPARISON: None FINDINGS: Right internal carotid artery: No acute findings. Intracranial segment is patent with no significant stenosis. No aneurysm. Right anterior cerebral artery: Unremarkable. No occlusion or significant stenosis. No aneurysm. Right middle cerebral artery: Unremarkable. No occlusion or significant stenosis. No aneurysm. Right posterior cerebral artery: Unremarkable. No occlusion or significant stenosis. No aneurysm. Right vertebral artery: Unremarkable as visualized. Left internal carotid artery: No acute findings. Intracranial segment is patent with no significant stenosis. No aneurysm. Left anterior cerebral artery: Unremarkable. No occlusion or significant stenosis. No aneurysm. Left middle cerebral artery: Unremarkable. No occlusion or significant stenosis. No aneurysm. Left posterior cerebral artery: Unremarkable. No occlusion or significant stenosis. No aneurysm. Left vertebral artery: Unremarkable as visualized. Basilar artery: Unremarkable. No occlusion or significant stenosis. No aneurysm. Other: Mild mucosal thickening in the maxillary sinuses. Polyp versus venous retention cyst in the right maxillary sinus. Small amount of fluid or mucosal thickening in the sphenoid sinuses. Mild mucosal thickening in the ethmoid air cells and left frontal sinus. IMPRESSION: No significant stenosis, occlusion, or aneurysm in the central or large intracranial arteries. Electronically signed by: Mecca Tenorio M.D. 03/14/23 20:36 PM Neck CTA 03/14/23 19:52 Exam(s): CTA NECK With Contrast IV Amt: 115 ml optiray 320 EXAM: CT Angiography Neck With Intravenous Contrast CLINICAL HISTORY: Reason for exam: confusion. TECHNIQUE: Routine carotid CT angiography protocol was performed with intravenous contrast. NASCET criteria using the distal ICAs for comparison were used for evaluation of stenoses. CTDI is 21.14 mGy and DLP is 782.95 mGy-cm. Automated exposure control was utilized for the study. A dose lowering technique was utilized adhering to the principles of ALARA. MIP reconstructed images were created and reviewed. CONTRAST: Patient received 115 ml optiray 320 of IV contrast COMPARISON: None FINDINGS: VASCULATURE: Right common carotid artery: Unremarkable. No occlusion or significant stenosis. No dissection. Right internal carotid artery: Unremarkable. Extracranial segment is patent with no occlusion or significant stenosis. No dissection. Right external carotid artery: Unremarkable. No occlusion. Right vertebral artery: Unremarkable. No occlusion or significant stenosis. No dissection. Left common carotid artery: Unremarkable. No occlusion or significant stenosis. No dissection. Left internal carotid artery: Unremarkable. Extracranial segment is patent with no occlusion or significant stenosis. No dissection. Left external carotid artery: Unremarkable. No occlusion. Left vertebral artery: Unremarkable. No occlusion or significant stenosis. No dissection. NECK: Bones/joints: Unremarkable. No acute fracture. Soft tissues: Unremarkable. Lymph nodes: Mildly prominent cervical lymph nodes are nonspecific. Lung apices: Densities in the lung apices may represent atelectasis. CAROTID STENOSIS REFERENCE USING NASCET CRITERIA: % ICA stenosis = (1 - narrowest ICA diameter/diameter of distal cervical ICA) x 100. Mild - <50% stenosis. Moderate - 50-69% stenosis. Severe - 70-94% stenosis. Near occlusion - 95-99% stenosis. Occluded - 100% stenosis. IMPRESSION: No significant stenosis, occlusion, or dissection. Mildly prominent cervical lymph nodes are nonspecific. Electronically signed by: Mecca Tenorio M.D. 03/14/23 20:33 PM Medications Administered Home Medications lorazepam 0.5 mg tablet 0.5 mg PO DAILY PRN Anxiety 10/04/20 [History Confirmed 03/14/23] Oxygen Home #1 ea 10/09/20 [Rx Confirmed 01/23/23] hydroxychloroquine 200 mg tablet (Plaquenil) 400 mg PO QAM 12/19/22 [History Confirmed 03/14/23] montelukast 10 mg tablet (Singulair) 10 mg PO QAM 12/19/22 [History Confirmed 03/14/23] venlafaxine 75 mg capsule,extended release 24 hr 75 mg PO QAM 01/23/23 [History Confirmed 03/14/23] albuterol sulfate 90 mcg/actuation aerosol inhaler 2 puff inhalation Q4H PRN Wheezing 03/14/23 [History Confirmed 03/14/23] cyanocobalamin (vitamin B-12) 1,000 mcg sublingual tablet 1,000 mcg sublingual QAM 03/14/23 [History Confirmed 03/14/23] omeprazole 40 mg capsule,delayed release 40 mg PO DAILYBB 03/14/23 [History Confirmed 03/14/23] Active Medications Fentanyl Citrate (Fentanyl Bolus From Bag) 50 mcg IV Q1H PRN PRN Reason: Pain or Agitation Stop: 03/28/23 20:35 Fentanyl Citrate (Fentanyl Citrate) 2,500 mcg in 250 mls @ 2.5 mls/hr IV .Q96H [facility]; Protocol Stop: 03/28/23 18:14 Last Titration: 03/14/23 20:41 Dose: 50 mcg/hr, 5 mls/hr Midazolam HCl (Versed) 125 mg in 250 mls @ 2 mls/hr IV .Q96H PRN; Protocol PRN Reason: Sedation Stop: 04/13/23 18:02 Last Admin: 03/14/23 19:05 Dose: 1 mg/hr, 2 mls/hr Diltiazem HCl 125 mg/ Dextrose 125 mls @ 5 mls/hr IV .Q24H [facility]; Protocol Stop: 04/13/23 19:44 Last Admin: 03/14/23 20:37 Dose: 5 mg/hr, 5 mls/hr Heparin Sodium/Dextrose (Heparin Sodium/Dextrose) 25,000 units in 500 mls @ 44 mls/hr IV .Q85S89L [facility]; Protocol Stop: 04/13/23 20:14 Last Admin: 03/14/23 20:52 Dose: 2,200 units/hr, 44 mls/hr Midazolam HCl (Midazolam Bolus From Bag) 2 mg IV Q60M PRN PRN Reason: Sedation Stop: 04/13/23 18:02 ECG Additional Comments: Atrial fibrillation with rapid ventricular response Left anterior fascicular block Left ventricular hypertrophy with QRS widening ( R in aVL , Turner product ) ST & T wave abnormality, consider lateral ischemia Abnormal ECG When compared with ECG of 23-JAN-2023 14:12, Atrial fibrillation has replaced Sinus rhythm Vent. rate has increased BY 68 BPM T wave amplitude has increased in Anterior leads T wave inversion now evident in Lateral leads Coding Level of Care Code 83253 CRITICAL CARE 1ST 30-74M Diagnoses Encephalopathy G93.40 Respiratory failure requiring intubation J96.90 Metabolic acidosis E87.20 Respiratory acidosis E87.29 Lactic acidosis E87.20 Elevated liver enzymes R74.8
[2023-03-14] MEDS: HEPARIN SODIUM/DEXTROSE 25,000 UNITS/500 ML BAG IV SCH (20:52)
[2023-03-14 21:14] LABS: Amphetamines+Metham, Urine Neg (Neg); Barbiturates, Urine Neg (Neg); Benzodiazepine, Urine Neg (Neg); Cocaine, Urine Neg (Neg); MDMA (Ecstacy), Urine Neg (Neg); Marijuana, Urine Neg (Neg); Methadone, Urine Neg (Neg); Opiate, Urine Neg (Neg); Phencyclidine, Urine Neg (Neg)
[2023-03-14 21:21] LABS: Thyroid Stimulating Hormone 8.626 uIu/ml (0.300-4.500)
--- NOTE | 2023-03-14 21:28 | History & Physical Report ---
Date of Service March 14, 2023 Assessment & Plan (1) Respiratory failure requiring intubation: Plan: 47-year-old female with past medical history significant for GERD,, morbid obesity, CKD stage III, sleep apnea, generalized osteoarthritis, vitamin B12 deficiency, anxiety, lymphedema presents with unresponsive episode. Apparently patient was with her daughter and grandkids at [employer] when she was sitting on the bench and suddenly she collapsed. Daughter noticed that she was gasping for breath and also seemed shaking. Initially daughter could feel the pulse. When EMS came and turned her around she seemed cyanotic. She was placed on monitor and had CPR. Seems no shocks were delivered. EMS attempted to intubate in the field but were unsuccessful. She has a left IO placed. She was brought into the ER. Currently s/p intubation. She also found in rapid A-fib. Currently on Cardizem drip. POC pH is 7.24. pCO2 is 49. Labs unremarkable except for elevated lactic acid 3.1. Mild transaminitis. Troponin is okay. BNP okay. Urine drug screen negative. Imaging studies with CTA head and neck, CT head, cervical spine CT, CTA chest, CT abdomen pelvis with unremarkable. Patient was also started IV heparin. Daughter and states patient was doing fine before this episode. She was ambulating okay. No recent fevers. No cough. No complaint of chest pain or dizziness. No nausea ,vomiting or diarrhea. Respiratory failure requiring intubation Patient had an unresponsive episode when she with her daughter and grand kids at [employer] Seemed shaky. Daughter could feel pulse. Seemed cyanotic. Had CPR. Currently s/p intubation. Not responding to touch or painful stimuli CT head, CTA head and neck, cervical spine CT, CTA chest, CT abdomen pelvis are unremarkable Labs look okay except for mild transaminitis and elevated lactic acid. Troponin and BNP are okay Will place on IV fluids Will do MRI's brain and EEG. MRI came back unremarkable On empiric iv Rocephin and vanco and acyclovir per critical care Close monitoring in the ICU Vent management as per critical care Rapid A-fib Started on Cardizem drip and IV heparin Will follow serial cardiac enzymes and echo Cardiology consult History of sleep apnea Morbid obesity Currently intubated On CPAP CKD stage III Presented creatinine 1.2 Will follow labs DVT prophylaxis On IV heparin Disposition ICU Full code History of Present Illness Chief Complaint: Unresponsive Primary Care Provider: Roldan Quiroz MD 47-year-old female with past medical history significant for GERD,, morbid obesity, CKD stage III, sleep apnea, generalized osteoarthritis, vitamin B12 deficiency, anxiety, lymphedema presents with unresponsive episode. Apparently patient was with her daughter and grandkids at [employer] when she was sitting on the bench and suddenly she collapsed. Daughter noticed that she was gasping for breath and also seemed shaking. Initially daughter could feel the pulse. When EMS came and turned her around she seemed cyanotic. She was placed on monitor and had CPR. Seems no shocks were delivered. EMS attempted to intubate in the field but were unsuccessful. She has a left IO placed. She was brought into the ER. Currently s/p intubation. She also found in rapid A-fib. Curr ently on Cardizem drip. POC pH is 7.24. pCO2 is 49. Labs unremarkable except for elevated lactic acid 3.1. Mild transaminitis. Troponin is okay. BNP okay. Urine drug screen negative. Imaging studies with CTA head and neck, CT head, cervical spine CT, CTA chest, CT abdomen pelvis with unremarkable. Patient was also started IV heparin. Daughter and states patient was doing fine bef ore this episode. She was ambulating okay. No recent fevers. No cough. No complaint of chest pain or dizziness. No nausea ,vomiting or diarrhea. Past medical history. As mentioned above Past surgical history. None. Social history. . No smoking. Alcohol rarely. No drug use. Family history. Daughter has ADHD. Anxiety disorder. Learning disability. Brother has diabetes. [place]. Mother has diabetes. Heart disorder. Hypertension. Alzheimer's. Sister has obesity. Brother had stroke. Paternal Grandfather had stroke. Allergies Allergy/AdvReac Type Severity Reaction Status Date / Time Penicillins Allergy Severe Vomiting Verified 03/14/23 17:52 adhesive Allergy Intermediate localized Verified 03/14/23 17:52 rash sumatriptan AdvReac Severe vertigo/diz Verified 03/14/23 17:52 ziness/naus ea Home Medications Medication Instructions Recorded Confirmed Type lorazepam 0.5 mg tablet 0.5 mg PO DAILY PRN Anxiety 10/04/20 03/14/23 History Oxygen Home #1 ea 10/09/20 01/23/23 Rx hydroxychloroquine 200 mg tablet 400 mg PO QAM 12/19/22 03/14/23 History (Plaquenil) montelukast 10 mg tablet 10 mg PO QAM 12/19/22 03/14/23 History (Singulair) venlafaxine 75 mg capsule,extended 75 mg PO QAM 01/23/23 03/14/23 History release 24 hr albuterol sulfate 90 mcg/actuation 2 puff inhalation Q4H PRN Wheezing 03/14/23 03/14/23 History aerosol inhaler cyanocobalamin (vitamin B-12) 1,000 mcg sublingual QAM 03/14/23 03/14/23 History 1,000 mcg sublingual tablet omeprazole 40 mg capsule,delayed 40 mg PO DAILYBB 03/14/23 03/14/23 History release Past Med/Surg History Medical History Morbid obesity Fatty liver History of COVID-19 09/2020 developed covid pneumonia and treated inpatient at [facility] at the time. no problems since. Seasonal allergies Anxiety Dyspnea on exertion Sleep apnea cpap at night Lymphedema bilateral legs CKD (chronic kidney disease) stage 3 - monitoring GERD (gastroesophageal reflux disease) Lupus Surgical History History of colonoscopy Family History Other No family history of adverse response to anesthesia Social History Smoking Status: Unknown if ever smoked Second Hand Exposure: No; Do You Dip or Chew Tobacco: No; Hx Substance Use: No Preferred Language: Tajik Communication Ability: Effective Amalgamator Required: No Beliefs That Will Affect Care: None marital status: Current Living Situation: Spouse and Family Current Living Situation Comment: Lives with and daughter/son in law and grandchildren x2 current occupational status: unemployed Feels Safe at Home: Yes Assistive Devices: CPAP and Glasses Review of Systems Review of Systems: Unobtainable due to endotracheal tube Physical Exam Physical Exam: General-s/p intubated. Head- atraumatic Eyes- PERRL Neck- no JVD, Lungs- clear to auscultation no wheezing or crackles. Heart- irregular rhythm; tachycardia no murmur, no gallop. Abdomen- normal bowel sounds, soft, no distension. Extremities- b/l lower extremity lymphedema present. No erythema seen. Neuro- s/p intubation. not responding to painful stimuli. Results & Data Results & Data Vital Signs (Past 12 Hours) Vital Signs Temp Pulse Pulse Resp BP BP Pulse Ox 03/14/23 20:40 35.6 C L 128 H 28 H 99 03/14/23 20:36 35.6 C L 141 H 28 H 99 03/14/23 20:36 109/88 03/14/23 20:31 35.6 C L 132 H 28 H 95 03/14/23 20:31 122/92 03/14/23 20:30 35.6 C L 124 H 28 H 98 03/14/23 20:21 161/117 H 03/14/23 20:21 35.5 C L 28 H 90 03/14/23 20:20 35.5 C L 20 94 03/14/23 20:16 35.5 C L 28 H 96 03/14/23 20:16 106/85 03/14/23 20:11 35.4 C L 28 H 100 03/14/23 20:11 107/86 03/14/23 20:10 35.5 C L 28 H 100 03/14/23 19:47 35.7 C L 132 H 28 H 99 03/14/23 19:47 128/79 03/14/23 19:42 35.7 C L 133 H 28 H 99 03/14/23 19:42 108/84 03/14/23 19:40 35.8 C L 129 H 28 H 100 03/14/23 19:36 35.8 C L 140 H 28 H 98 03/14/23 19:36 136/88 03/14/23 19:30 144/89 H 03/14/23 19:30 35.8 C L 134 H 28 H 97 03/14/23 19:30 126 H 28 H 144/89 H 97 03/14/23 19:20 35.8 C L 124 H 28 H 100 03/14/23 19:20 112/89 03/14/23 19:16 132/72 03/14/23 19:16 35.8 C L 130 H 28 H 97 03/14/23 19:10 131/69 03/14/23 19:10 35.8 C L 134 H 28 H 100 03/14/23 19:05 126 H 28 H 100 03/14/23 19:00 35.9 C L 135 H 28 H 99 03/14/23 19:00 120/73 03/14/23 18:59 35.9 C L 124 H 28 H 03/14/23 18:28 142 H 28 H 100 03/14/23 18:27 36.3 C L 143 H 28 H 100 03/14/23 18:27 121/65 03/14/23 18:27 121/65 03/14/23 18:20 36.0 C L 147 H 26 H 100 03/14/23 18:10 34.9 C L 157 H 26 H 03/14/23 18:08 99/54 L 03/14/23 18:08 34.5 C L 157 H 26 H 82 L 03/14/23 18:01 30.5 C L 148 H 26 H 89 L 03/14/23 18:01 57/42 L 03/14/23 18:00 168 H 26 H 89 L 03/14/23 17:53 132 H 28 H 100 03/14/23 17:51 164 H 22 94 03/14/23 17:51 112/67 03/14/23 17:50 180 H 18 83 L 03/14/23 17:44 149 H 03/14/23 17:42 143 H 19 03/14/23 17:27 18 03/14/23 17:27 03/14/23 17:27 36.6 C 172 H 18 112/67 100 O2 Del Method FiO2 03/14/23 20:40 03/14/23 20:36 03/14/23 20:36 03/14/23 20:31 03/14/23 20:31 03/14/23 20:30 03/14/23 20:21 03/14/23 20:21 03/14/23 20:20 03/14/23 20:16 03/14/23 20:16 03/14/23 20:11 03/14/23 20:11 03/14/23 20:10 03/14/23 19:47 03/14/23 19:47 03/14/23 19:42 03/14/23 19:42 03/14/23 19:40 03/14/23 19:36 03/14/23 19:36 03/14/23 19:30 03/14/23 19:30 03/14/23 19:30 Mechanical Vent 03/14/23 19:20 03/14/23 19:20 03/14/23 19:16 03/14/23 19:16 03/14/23 19:10 03/14/23 19:10 03/14/23 19:05 80 03/14/23 19:00 03/14/23 19:00 03/14/23 18:59 03/14/23 18:28 80 03/14/23 18:27 03/14/23 18:27 03/14/23 18:27 03/14/23 18:20 03/14/23 18:10 03/14/23 18:08 03/14/23 18:08 03/14/23 18:01 03/14/23 18:01 03/14/23 18:00 03/14/23 17:53 Mechanical Vent 60 03/14/23 17:51 03/14/23 17:51 03/14/23 17:50 03/14/23 17:44 03/14/23 17:42 03/14/23 17:27 03/14/23 17:27 Mechanical Vent 03/14/23 17:27 Diagnostic Findings Laboratory Results WBC 8.32 K/ul (4.8-10.8) 03/14/23 17:56 RBC 4.97 M/uL (4.20-5.40) 03/14/23 17:56 Hgb 12.3 g/dl (12.0-16.0) 03/14/23 17:56 POC Hgb 12.2 g/dl (12.0-16.0) 03/14/23 19:14 Hct 40.6 % (37.0-47.0) 03/14/23 17:56 POC Hct 36 % (37-47) L 03/14/23 19:14 MCV 81.7 fL (80.0-100.0) 03/14/23 17:56 MCH 24.7 pg (25.0-34.0) L 03/14/23 17:56 MCHC 30.3 g/dL (32.0-36.0) L 03/14/23 17:56 RDW Std Deviation 42.9 fL (36.4-46.3) 03/14/23 17:56 RDW Coeff of Dionicio 14.4 % (11.5-14.5) 03/14/23 17:56 Plt Count 266 K/uL (130-400) 03/14/23 17:56 MPV 10.1 fL (9.4-12.4) 03/14/23 17:56 Immature Gran % (Auto) 1.4 % 03/14/23 17:56 Neut % (Auto) 61.7 % 03/14/23 17:56 Lymph % (Auto) 29.3 % 03/14/23 17:56 [place] % (Auto) 5.9 % 03/14/23 17:56 Eos % (Auto) 1.3 % 03/14/23 17:56 Baso % (Auto) 0.4 % 03/14/23 17:56 Neut # (Auto) 5.13 K/uL (1.40-6.50) 03/14/23 17:56 Lymph # (Auto) 2.44 K/uL (1.20-3.40) 03/14/23 17:56 [place] # (Auto) 0.49 K/uL (0.11-0.59) 03/14/23 17:56 Eos # (Auto) 0.11 K/uL (0.00-0.50) 03/14/23 17:56 Baso # (Auto) 0.03 K/uL (0.00-0.20) 03/14/23 17:56 Immature Gran # (Auto) 0.12 K/uL (0.01-0.20) 03/14/23 17:56 PT 11.2 Seconds (9.0-12.0) 03/14/23 17:56 INR 1.0 (0.9-1.1) 03/14/23 17:56 APTT 24 Seconds (21-31) 03/14/23 17:56 PTT Ratio 0.9 03/14/23 17:56 POC pH 7.24 (7.35-7.45) L 03/14/23 19:14 POC pCO2 49 mmHg (35-46) H 03/14/23 19:14 POC pO2 212 mmHg (80-95) H 03/14/23 19:14 POC HCO3 21 maggi/L (19-24) 03/14/23 19:14 POC Total CO2 22 mmol/L (24-31) L 03/14/23 19:14 POC Base Excess -7.0 maggi/L (-9-1.8) 03/14/23 19:14 POC ABG O2 Sat 100.0 % (90-95) H 03/14/23 19:14 POC Sodium 140 mmol/L (135-144) 03/14/23 19:14 Sodium 139 mmol/L (136-145) 03/14/23 17:56 POC Potassium 3.6 mmol/L (3.3-5.0) 03/14/23 19:14 Potassium 3.6 mmol/L (3.5-5.1) 03/14/23 17:56 POC Chloride 104 mmol/L (101-112) 03/14/23 17:58 Chloride 107 mmol/L (98-107) 03/14/23 17:56 Carbon Dioxide 23 mmol/L (21-32) 03/14/23 17:56 POC Total CO2 22 mmol/L (24-31) L 03/14/23 17:58 Anion Gap 9 (3-11) 03/14/23 17:56 POC Anion Gap 20.0 mmol/L (16-25) 03/14/23 17:58 POC BUN 17 mg/dl (7-18) 03/14/23 17:58 BUN 20 mg/dl (6-23) 03/14/23 17:56 Creatinine 1.20 mg/dl (0.6-1.2) 03/14/23 17:56 POC Creatinine 1.2 mg/dl (0.6-1.3) 03/14/23 17:58 Est Cr Clr Drug Dosing 110.3 ml/min 03/14/23 17:56 Est GFR ( Amer) 61.9 ml/min 03/14/23 17:56 Est GFR (Non-Af Amer) 53.4 ml/min 03/14/23 17:56 BUN/Creatinine Ratio 16.7 (10-20) 03/14/23 17:56 Glucose 172 mg/dl (70-99(Fasting)) H 03/14/23 17:56 POC Glucose (other) 162 mg/dl (70-99) H 03/14/23 17:58 Lactate 4.2 mmol/L (0.4-2.0) H* 03/14/23 20:40 Calcium 8.1 mg/dl (8.6-10.3) L 03/14/23 17:56 POC Ioniz Calcium Trudi 1.12 mmol/l (1.12-1.32) 03/14/23 17:58 Magnesium 1.9 mg/dl (1.7-2.4) 03/14/23 17:56 Total Bilirubin 0.6 mg/dl (0.2-1.0) 03/14/23 17:56 Direct Bilirubin 0.1 mg/dl (0-0.2) 03/14/23 17:56 AST 74 U/L (13-39) H 03/14/23 17:56 ALT 76 U/L (7-52) H 03/14/23 17:56 Alkaline Phosphatase 88 U/L (34-104) 03/14/23 17:56 Ammonia 59.0 umol/L (18-72) 03/14/23 20:40 Troponin I High Sens 11.6 pg/ml (0-14) 03/14/23 17:56 B-Natriuretic Peptide 77 pg/ml (0-100) 03/14/23 17:56 Total Protein 6.9 gm/dl (6.0-8.3) 03/14/23 17:56 Albumin 3.9 gm/dl (3.4-5.0) 03/14/23 17:56 Procalcitonin < 0.05 ng/ml (0-0.5) 03/14/23 17:56 TSH 8.626 uIu/ml (0.300-4.500) H 03/14/23 17:56 Urine Color Yellow 03/14/23 19:40 Urine Appearance Cloudy (Clear) A 03/14/23 19:40 Urine pH 8.0 (4.5-7.5) H 03/14/23 19:40 Ur Specific Tucker 1.025 (1.000-1.030) 03/14/23 19:40 Urine Protein 3+ (Negative) H 03/14/23 19:40 Urine Glucose (UA) Trace (Negative) H 03/14/23 19:40 Urine Ketones Negative (Negative) 03/14/23 19:40 Urine Blood 2+ (Negative) H 03/14/23 19:40 Urine Nitrite Negative (Negative) 03/14/23 19:40 Urine Bilirubin Negative (Negative) 03/14/23 19:40 Urine Urobilinogen Negative (Negative) 03/14/23 19:40 Ur Leukocyte Esterase Negative (Negative) 03/14/23 19:40 Urine WBC (Auto) >30 /hpf (0-5) H 03/14/23 19:40 Urine RBC (Auto) 5-10 /hpf (0-4) H 03/14/23 19:40 U Hyaline Cast (Auto) 5-10 /lpf (0-5) H 03/14/23 19:40 U Epithel Cells (Auto) 20-30 /lpf (0-5) H 03/14/23 19:40 Urine Bacteria (Auto) Negative (Negative) 03/14/23 19:40 Urine Yeast Not Reportable 03/14/23 19:40 Nasal Screen MRSA (PCR) Negative (Negative) 03/14/23 19:42 Urine Opiates Screen Neg (Neg) 03/14/23 19:40 Ur Methadone, Qual Neg (Neg) 03/14/23 19:40 Urine Barbiturates Neg (Neg) 03/14/23 19:40 Ur Phencyclidine (PCP) Neg (Neg) 03/14/23 19:40 U Amphetamin/Meth Scrn Neg (Neg) 03/14/23 19:40 MDMA (Ecstasy) Screen Neg (Neg) 03/14/23 19:40 U Benzodiazepines Scrn Neg (Neg) 03/14/23 19:40 Ur Cocaine Metabolite Neg (Neg) 03/14/23 19:40 U Marijuana (THC) Screen Neg (Neg) 03/14/23 19:40 Impressions Chest CTA 03/14/23 17:54 Exam(s): CTA CHEST IV Amt: 113 ml optiray 320 EXAM: CT Angiography Chest With Intravenous Contrast CLINICAL HISTORY: Reason for exam: PE. TECHNIQUE: Axial computed tomographic angiography images of the chest with intravenous contrast. CTDI is 35.52 mGy and DLP is 1093.75 mGy-cm. Automated exposure control was utilized for the study. A dose lowering technique was utilized adhering to the principles of ALARA. MIP reconstructed images were created and reviewed. COMPARISON: CT chest on 01/23/2023 FINDINGS: Pulmonary arteries: Unremarkable. No definite pulmonary embolus identified, but evaluation of the distal pulmonary arterial branches is limited by motion artifact. Aorta: No acute findings. No aortic aneurysm or dissection. Lungs: Probable dependent atelectasis bilaterally. No mass. Pleural space: Unremarkable. No significant effusion. No pneumothorax. Heart: Cardiomegaly. No significant pericardial effusion. No evidence of RV dysfunction. Bones/joints: Degenerative changes of the spine. No acute fracture. No dislocation. Soft tissues: Unremarkable. Lymph nodes: Unremarkable. No enlarged lymph nodes. Tubes, lines and devices: Endotracheal tube terminates just above the jonna, directed toward the right mainstem bronchus. IMPRESSION: 1. No definite pulmonary embolus identified, but evaluation of the distal pulmonary arterial branches is limited by motion artifact. 2. No aortic aneurysm or dissection. 3. Probable dependent atelectasis bilaterally. Electronically signed by: Mecca Tenorio M.D. 03/14/23 19:[address] 03/14/23 17:54 Exam(s): CT HEAD Without Contrast EXAM: CT Head Without Intravenous Contrast CLINICAL HISTORY: Reason for exam: AMS. TECHNIQUE: Axial computed tomography images of the head/brain without intravenous contrast. CTDI is 73.11 mGy and DLP is 1092.72 mGy-cm. Automated exposure control was utilized for the study. A dose lowering technique was utilized adhering to the principles of ALARA. COMPARISON: None FINDINGS: Brain: No acute infarct or hemorrhage. No extra-axial fluid collection. No mass effect or midline shift. Ventricles and sulci: Normal. No ventriculomegaly or intraventricular hemorrhage. Bones: Normal. No bony lesion or acute fracture. Subcutaneous tissues: Normal. Sinuses: Fluid in the nasal cavity and nasopharynx. Mild mucosal thickening in the left maxillary sinus, right sphenoid sinus, ethmoid air cells, and left frontal sinus. Mastoid air cells: Normal. Orbits: Grossly unremarkable. IMPRESSION: No acute intracranial abnormality. If there is persistent concern for an acute process, consider further evaluation with MRI. Electronically signed by: Mecca Tenorio M.D. 03/14/23 19:34 PM Abdomen/Pelvis CT 03/14/23 18:03 Exam(s): CT ABDOMEN + PELVIS With Contrast IV Amt: 113 ml optiray 320 EXAM: CT Abdomen and Pelvis With Intravenous Contrast CLINICAL HISTORY: Reason for exam: unresponsive, tachy, hypotensive. TECHNIQUE: Axial computed tomography images of the abdomen and pelvis with intravenous contrast. CTDI is 33.52 mGy and DLP is 1987.2 mGy-cm. Automated exposure control was utilized for the study. A dose lowering technique was utilized adhering to the principles of ALARA. CONTRAST: Patient received 113 ml optiray 320 of IV contrast COMPARISON: CT abdomen/pelvis on 01/23/2023 FINDINGS: Lung bases: Please see accompanying CT chest for further details. ABDOMEN: Liver: Hepatomegaly. Gallbladder and bile ducts: Unremarkable. No calcified stones. No ductal dilation. Pancreas: Unremarkable. No mass. No ductal dilation. Spleen: Mild splenomegaly. Adrenals: Unremarkable. No mass. Kidneys and ureters: Unremarkable. No hydronephrosis or obstructing stone. Stomach and bowel: Evaluation of the stomach is limited by underdistention. No mucosal thickening. PELVIS: Appendix: Appendix is not visualized on this exam. Bladder: Gooden catheter in a decompressed bladder which limits evaluation. Reproductive: Unremarkable as visualized. ABDOMEN and PELVIS: Intraperitoneal space: Unremarkable. No free air. No significant fluid collection. Bones/joints: Degenerative changes of the spine. No acute fracture. No dislocation. Soft tissues: Unremarkable. Vasculature: Phleboliths in the pelvis. No abdominal aortic aneurysm. Lymph nodes: Unremarkable. No enlarged lymph nodes. IMPRESSION: No acute findings in the abdomen or pelvis. Electronically signed by: Mecca Tenorio M.D. 03/14/23 19:[address] 03/14/23 18:31 Exam(s): CT C SPINE EXAM: CT Cervical Spine Without Intravenous Contrast CLINICAL HISTORY: Reason for exam: fall. TECHNIQUE: Axial computed tomography images of the cervical spine without intravenous contrast. CTDI is 33.87 mGy and DLP is 715.88 mGy-cm. Automated exposure control was utilized for the study. A dose lowering technique was utilized adhering to the principles of ALARA. COMPARISON: None FINDINGS: Bones: Mild reversal of the normal cervical lordosis. No acute fracture or bony lesion. Disc spaces: No subluxation. Mild degenerative changes of the spine. Soft tissues: Normal. Other: Mild paranasal sinus disease. Patchy densities in the upper lungs could represent atelectasis. Endotracheal tube terminates in the upper/mid thoracic trachea. IMPRESSION: No acute traumatic abnormality. Electronically signed by: Mecca Tenorio M.D. 03/14/23 20:45 PM Head CTA 03/14/23 19:52 Exam(s): CTA HEAD With Contrast IV Amt: 115 ml optiray 320 EXAM: CT Angiography Head With Intravenous Contrast CLINICAL HISTORY: Reason for exam: confusion. TECHNIQUE: Axial computed tomographic angiography images of the head with intravenous contrast. CTDI is 33.87 mGy and DLP is 715.88 mGy-cm. Automated exposure control was utilized for the study. A dose lowering technique was utilized adhering to the principles of ALARA. MIP reconstructed images were created and reviewed. CONTRAST: Patient received 115 ml optiray 320 of IV contrast COMPARISON: None FINDINGS: Right internal carotid artery: No acute findings. Intracranial segment is patent with no significant stenosis. No aneurysm. Right anterior cerebral artery: Unremarkable. No occlusion or significant stenosis. No aneurysm. Right middle cerebral artery: Unremarkable. No occlusion or significant stenosis. No aneurysm. Right posterior cerebral artery: Unremarkable. No occlusion or significant stenosis. No aneurysm. Right vertebral artery: Unremarkable as visualized. Left internal carotid artery: No acute findings. Intracranial segment is patent with no significant stenosis. No aneurysm. Left anterior cerebral artery: Unremarkable. No occlusion or significant stenosis. No aneurysm. Left middle cerebral artery: Unremarkable. No occlusion or significant stenosis. No aneurysm. Left posterior cerebral artery: Unremarkable. No occlusion or significant stenosis. No aneurysm. Left vertebral artery: Unremarkable as visualized. Basilar artery: Unremarkable. No occlusion or significant stenosis. No aneurysm. Other: Mild mucosal thickening in the maxillary sinuses. Polyp versus venous retention cyst in the right maxillary sinus. Small amount of fluid or mucosal thickening in the sphenoid sinuses. Mild mucosal thickening in the ethmoid air cells and left frontal sinus. IMPRESSION: No significant stenosis, occlusion, or aneurysm in the central or large intracranial arteries. Electronically signed by: Mecca Tenorio M.D. 03/14/23 20:36 PM Neck CTA 03/14/23 19:52 Exam(s): CTA NECK With Contrast IV Amt: 115 ml optiray 320 EXAM: CT Angiography Neck With Intravenous Contrast CLINICAL HISTORY: Reason for exam: confusion. TECHNIQUE: Routine carotid CT angiography protocol was performed with intravenous contrast. NASCET criteria using the distal ICAs for comparison were used for evaluation of stenoses. CTDI is 21.14 mGy and DLP is 782.95 mGy-cm. Automated exposure control was utilized for the study. A dose lowering technique was utilized adhering to the principles of ALARA. MIP reconstructed images were created and reviewed. CONTRAST: Patient received 115 ml optiray 320 of IV contrast COMPARISON: None FINDINGS: VASCULATURE: Right common carotid artery: Unremarkable. No occlusion or significant stenosis. No dissection. Right internal carotid artery: Unremarkable. Extracranial segment is patent with no occlusion or significant stenosis. No dissection. Right external carotid artery: Unremarkable. No occlusion. Right vertebral artery: Unremarkable. No occlusion or significant stenosis. No dissection. Left common carotid artery: Unremarkable. No occlusion or significant stenosis. No dissection. Left internal carotid artery: Unremarkable. Extracranial segment is patent with no occlusion or significant stenosis. No dissection. Left external carotid artery: Unremarkable. No occlusion. Left vertebral artery: Unremarkable. No occlusion or significant stenosis. No dissection. NECK: Bones/joints: Unremarkable. No acute fracture. Soft tissues: Unremarkable. Lymph nodes: Mildly prominent cervical lymph nodes are nonspecific. Lung apices: Densities in the lung apices may represent atelectasis. CAROTID STENOSIS REFERENCE USING NASCET CRITERIA: % ICA stenosis = (1 - narrowest ICA diameter/diameter of distal cervical ICA) x 100. Mild - <50% stenosis. Moderate - 50-69% stenosis. Severe - 70-94% stenosis. Near occlusion - 95-99% stenosis. Occluded - 100% stenosis. IMPRESSION: No significant stenosis, occlusion, or dissection. Mildly prominent cervical lymph nodes are nonspecific. Electronically signed by: Mecca Tenorio M.D. 03/14/23 20:33 PM ECG Additional Comments: ECG. Atrial fibrillation with rapid ventricular response at the rate of 143. Left anterior fascicle block. Left ventricle hypertrophy. ST and T wave abnormality Code Status & VTE Plan VTE Prophylaxis Plan VTE Prophylaxis will be ordered: Yes
[2023-03-14 21:59] LABS: T4 Free Thyroxine 0.71 ng/dl (0.61-1.60)
[2023-03-14] MEDS ORDERED: DEXAMETHASONE SOD INJ 4 MG/ML VIAL IV STA (22:44)
[2023-03-14] MEDS ORDERED: DEXTROSE 5% IV ONE (22:44)
[2023-03-14] MEDS ORDERED: VANCOMYCIN CONSULT ACTIVE PRN ×2 (22:44)
[2023-03-14] MEDS ORDERED: ACYCLOVIR SOD IV ONE (22:44)
[2023-03-14] MEDS ORDERED: VANCOMYCIN HCL 2,750 MG in SODIUM CHLORIDE 0.9% 500 ML IV ONE (22:44)
[2023-03-14] MEDS ORDERED: GADOBUTROL 65ML VIAL IV ONE (22:53)
[2023-03-14] MEDS ORDERED: PROPOFOL IV EMULSION 10 MG/ML 100 ML VIAL IV ONE (23:00)
[2023-03-14 23:02] LABS: Adenovirus PCR Not Detected (NotDetected); Bordetella parapertussis PCR Not Detected (NotDetected); Bordetella pertussis PCR Not Detected (NotDetected); Chlamydia pneumoniae PCR Not Detected (NotDetected); Coronavirus 229E PCR Not Detected (NotDetected); Coronavirus CoV-2 (COVID19)PCR Not Detected (NotDetected); Coronavirus NL63 PCR Not Detected (NotDetected); Coronavirus OC43PCR Not Detected (NotDetected); Human Metapneumovirus PCR Not Detected (NotDetected); Influenza A PCR Not Detected (NotDetected); Influenza B PCR Not Detected (NotDetected); Mycoplasma pneumoniae PCR Not Detected (NotDetected); Parainfluenza Virus 1 PCR Not Detected (NotDetected); Parainfluenza Virus 2 PCR Not Detected (NotDetected); Parainfluenza Virus 3 PCR Not Detected (NotDetected); Parainfluenza Virus 4 PCR Not Detected (NotDetected); Respiratory Syncytial VirusPCR Not Detected (NotDetected); Rhinovirus/Enterovirus PCR Not Detected (NotDetected)
[2023-03-14] MEDS ORDERED: ICU Protocol for HYPERglycemia SCH (23:20)
[2023-03-14] MEDS ORDERED: PROPOFOL BOLUS FROM BAG IV PRN (23:20)
[2023-03-14] MEDS ORDERED: SODIUM CHLORIDE 0.9% 1,000 ML IV SCH (23:20)
[2023-03-14] MEDS: cefTRIAXone SODIUM 2,000 MG in DEXTROSE 5 % MINI-B 50 ML IV SCH (23:38)
[2023-03-14] MEDS: propofoL 1,000 MG/100 ML VIAL IV SCH (23:39)
[2023-03-14 23:48] LABS: Coronavirus HKU1 PCR DETECTED (NotDetected)
[2023-03-15] MEDS ORDERED: METOPROLOL TARTRATE 1 MG/ML VIAL IV STA (00:04)
--- NOTE | 2023-03-15 00:16 | Procedure Note ---
Procedure Note Date of Service March 15, 2023 Note ARTERIAL LINE PROCEDURE NOTE: Procedure: Arterial Line Placement Proceduralist: Neville CASTANEDA ([facility] Attending: APC: Indication: Monitoring on Pressors Anesthesia: x None Emergent Consent was implied as patient is full code and in need of accurate blood pressure monitoring as her body habitus makes non-invasive measurement unfeasible and inaccurate A time-out was completed verifying correct patient, procedure, site, positioning, Allens test was performed to ensure adequate perfusion. Patients LEFT wrist was prepped and draped in the usual sterile fashion. Ultrasound guidance was used to aid needle placement. A 20g Arrow arterial line was introduced into the LEFT RADIAL artery. Catheter was threaded, and the needle was removed with appropriate blood return. Good waveform was observed. The patient tolerated the procedure well. The line was sutured in place and marked as arterial with supplied arterial line markings and covered with sterile dressing. Blood Loss: Minimal Complications: None Artery Identified: YES Complications: NONE immediately noted Patient tolerated procedure: WELL Coding CPT Codes Tubes, Drains, and Vasc Access - Tubes, Drains, and Vasc Access: [id number] Arterial Cath/Cannulation Sampling/Monitoring/Transfusion ([id number]) [facility] – [place] Procedure Codes (Charges) Tubes, Drains, and Vasc Access Procedure 1: Tubes, Drains, and Vasc Access: [id number] Arterial Cath/Cannulation Sampling/Monitoring/Transfusion
[2023-03-15 00:20] LABS: iSTAT Art Bld Gas pCO2 Correct 40 mmHg (35-46); iSTAT Art Bld Gas pH Corrected 7.275 (7.35-7.45); iSTAT Arterial Blood Gas HCO3 19 meg/L (19-24); iSTAT Arterial Blood Gas pCO2 42 mmHg (35-46); iSTAT Arterial Blood Gas pH 7.26 (7.35-7.45); iSTAT Arterial Blood Gas pO2 74 mmHg (80-95); iSTAT Arterial Blood Gas pO2 C 68; iSTAT Carbon Dioxide 20 mmol/L (24-31); iSTAT FiO2 50 %; iSTAT Hematocrit 37 % (37-47); iSTAT Hemoglobin 12.6 g/dl (12.0-16.0); iSTAT Potassium 3.8 mmol/L (3.3-5.0); iSTAT Site Art Line; iSTAT Sodium 140 mmol/L (135-144)
--- NOTE | 2023-03-15 00:29 | Magnetic Resonance Report ---
Exam(s): MRI HEAD W/WO Contrast IV Amt: 20.9CC GADAVIST EXAM: MR Head Without and With Intravenous Contrast CLINICAL HISTORY: Reason for exam: cva?. TECHNIQUE: Magnetic resonance images of the head/brain without and with intravenous contrast in multiple planes. CONTRAST: Patient received 20.9CC GADAVIST of IV contrast COMPARISON: Prior CT head, CTA head and neck 03/14/2023 FINDINGS: Brain: Unremarkable. No mass. No hemorrhage. No acute infarct. Ventricles: Unremarkable. No ventriculomegaly. Bones/joints: Unremarkable. No acute fracture. Sinuses: Mild paranasal sinus mucosal thickening in most of the paranasal sinuses. No fluid levels. Right maxillary sinus mucous retention cyst or polyp. Mastoid air cells: Unremarkable as visualized. No mastoid effusion. Orbits: Unremarkable as visualized. IMPRESSION: No acute findings in the head/brain. Electronically signed by: Kacey Mondragon M.D. 03/15/23 00:28 AM
[2023-03-15] MEDS: MAGNESIUM SULFATE / D5W 1 GM/100 ML BAG IV SCH ×2 (00:39→02:25)
[2023-03-15] MEDS: PLASMA-LYTE A 1,000 ML IV SCH ×4 (00:40→23:28)
[2023-03-15] MEDS ORDERED: STAT IV Infusion **Titration per Protocol STA (00:48)
[2023-03-15] MEDS ORDERED: PLASMA-LYTE A 250 ML IV ONE (00:49)
[2023-03-15] MEDS: PHENYLEPHRINE/NSS 25 MG/250 ML BAG IV SCH ×3 (00:58→11:48)
[2023-03-15] MEDS ORDERED: INFLUENZA VIRUS QUADRIVALENT VACCINE (IIV4) 0.5 ML SYR IM ONE (01:32)
[2023-03-15] MEDS ORDERED: PNEUMOCOCCAL VACCINE (PCV20) 20-VAL CONJ-DIP CRM/PF 0.5 ML SYR IM ONE (01:32)
[2023-03-15] MEDS: propofoL 1,000 MG/100 ML VIAL IV SCH ×2 (01:36→04:25)
[2023-03-15 03:38] LABS: ANTI-Xa, UFH(UnfractionatedHep 0.45 IU/ml (0.3-0.7)
[2023-03-15 04:58] LABS: Hemoglobin 12.4 g/dl (12.0-16.0); Mean Corpuscular Hemoglobin 24.6 pg (25.0-34.0); Mean Corpuscular Volume 79.4 fL (80.0-100.0); Mean Platelet Volume 9.7 fL (9.4-12.4); Platelet Count 309 K/uL (130-400); RDW Coefficient of Variation 14.6 % (11.5-14.5); RDW Standard Deviation 41.6 fL (36.4-46.3); Red Blood Count 5.04 M/uL (4.20-5.40); White Blood Count 13.52 K/ul (4.8-10.8)
[2023-03-15 05:02] LABS: iSTAT Art Bld Gas pCO2 Correct 36 mmHg (35-46); iSTAT Art Bld Gas pH Corrected 7.335 (7.35-7.45); iSTAT Arterial Blood Gas HCO3 19 meg/L (19-24); iSTAT Arterial Blood Gas pCO2 36 mmHg (35-46); iSTAT Arterial Blood Gas pH 7.33 (7.35-7.45); iSTAT Arterial Blood Gas pO2 86 mmHg (80-95); iSTAT Arterial Blood Gas pO2 C 85; iSTAT Carbon Dioxide 20 mmol/L (24-31); iSTAT FiO2 30 %; iSTAT Hematocrit 37 % (37-47); iSTAT Hemoglobin 12.6 g/dl (12.0-16.0); iSTAT Potassium 4.2 mmol/L (3.3-5.0); iSTAT Site Art Line; iSTAT Sodium 137 mmol/L (135-144)
[2023-03-15 05:17] LABS: Albumin Level 3.9 gm/dl (3.4-5.0); BUN Creatinine Ratio 16.7 (10-20); Bilirubin Direct 0.2 mg/dl (0-0.2); Bilirubin,Total 0.6 mg/dl (0.2-1.0); Calcium 8.5 mg/dl (8.6-10.3); Creatinine Clr Calc Pharmacy 128.7 ml/min; Est GFR (African American) 75.3 ml/min; Magnesium 2.4 mg/dl (1.7-2.4); Phosphorus 1.8 mg/dl (2.5-4.9); Potassium 4.2 mmol/L (3.5-5.1); Total Protein 7.1 gm/dl (6.0-8.3)
[2023-03-15 05:25] LABS: Basophils # (auto) 0.02 K/uL (0.00-0.20); Basophils % (auto) 0.1 %; Immature Granulocytes # (auto) 0.09 K/uL (0.01-0.20); Immature Granulocytes % (auto) 0.7 %; Lymphocytes # (auto) 0.68 K/uL (1.20-3.40); Monocytes # (auto) 0.33 K/uL (0.11-0.59); Monocytes % (auto) 2.4 %; Neutrophils % (auto) 91.8 %; Troponin I High Sensitivity 142.8 pg/ml (0-14)
[2023-03-15] MEDS ORDERED: SODIUM PHOSPHATE 3 MMOL/1 ML INFUSION IV STA (05:49)
[2023-03-15] MEDS ORDERED: SODIUM PHOSPHATE 12 MMOL in DEXTROSE 5% 250 ML IV ONE (06:30)
--- NOTE | 2023-03-15 07:06 | Electrocardiogram Report ---
Test Reason : Blood Pressure : / mmHG Vent. Rate : 143 BPM Atrial Rate : 000 BPM P-R Int : 000 ms QRS Dur : 116 ms QT Int : 298 ms P-R-T Axes : 000 -50 118 degrees QTc Int : 459 ms Atrial fibrillation with rapid ventricular response Left anterior fascicular block Left ventricular hypertrophy with QRS widening Abnormal ECG When compared with ECG of 23-JAN-2023 14:12, Atrial fibrillation has replaced Sinus rhythm Vent. rate has increased BY 68 BPM T wave amplitude has increased in Anterior leads T wave inversion now evident in Lateral leads Confirmed by Wang Fontanez ([id number]) on 03/15/2023 7:06:34 AM Referred By: REFERRED SELF Confirmed By:Seth Fontanez
--- NOTE | 2023-03-15 07:17 | Electrocardiogram Report ---
Test Reason : Blood Pressure : / mmHG Vent. Rate : 079 BPM Atrial Rate : 068 BPM P-R Int : 000 ms QRS Dur : 116 ms QT Int : 426 ms P-R-T Axes : 000 -44 -02 degrees QTc Int : 488 ms Atrial fibrillation Left axis deviation Left ventricular hypertrophy with QRS widening Poor R wave progression, consider anterior SC vs. lead placement vs. LVH Prolonged QT Abnormal ECG Confirmed by Wang Fontanez ([id number]) on 03/15/2023 7:17:52 AM Referred By: REFERRED SELF Confirmed By:Seth Fontanez
[2023-03-15] MEDS ORDERED: VANCOMYCIN HCL 1,000 MG in SODIUM CHLORIDE 0.9% 250 ML IV SCH (08:00)
[2023-03-15] MEDS: HEPARIN SODIUM/DEXTROSE 25,000 UNITS/500 ML BAG IV SCH (08:03)
--- NOTE | 2023-03-15 08:04 | Hospitalist Progress Note ---
Date of Service March 15, 2023 Assessment & Plan (1) Respiratory failure requiring intubation: Plan: Ms Sol is a 47-year-old woman with past medical history significant for GERD, morbid obesity, CKD stage III, sleep apnea, generalized osteoarthritis, vitamin B12 deficiency, anxiety, lymphedema who presented to [facility] with unresponsive episode on 03/14. Patient reportedly suddenly collapsed, witnessed by daughter and grandchildren. EMS reported patient to be cyanotic on scene and CPR initiated prehospital. Airway access was not secured prehospital; however, upon arrival to ED she was intubated and mechanically ventilated. Rhythm upon arrival was atrial fibrillation with RVR. Eitology of collapse has yet to be elucidated. Urine and blood cultures with no growth todate, procal WNL. No gap. Acidotic on abg initially with corresponding lactate to 4 TSH 8.626 Troponin uptrending to 142 in the setting of atrial fibrillation and arrest Mild transaminitis with no obstructive characteristics #Acute hypoxic, hypercarbic respiratory failure, unclear etiology, s/p mechanical ventilation [extubated 03/15] #Sudden collapse #Seizure like activity -Reportedly shaking episode noted after collapse -Currently s/p intubation upon arrival to ED on 03/14 Initial exams without response to painful/verbal stimuli CT head, CTA head and neck, cervical spine CT, CTA chest, CT abdomen pelvis are unremarkable Labs not suggestive of clear source outside of except for mild transaminitis and elevated lactic acid. Troponin and BNP are okay Under critical care management, appreciate recommendations and management EEG pending Continue broad spectrum antibiotics, covering encephalitis/meningitis given reported history: CTX, Vanc, Acyclovir started 03/14 Extubated 03/15/2023 Telestroke contacted 03/14: no AED at this time, if EEG with focal discharges consider LP, if concern for recurrent seizure may warrant LTM EEG #Atrial Fibrillation with rapid ventricular rate *improved #Type II Myocardial injury in setting of hypoxic, tachycardia, sudden collapse/CPR Multiple contributing factors to troponin elevation EKG this am with criteria for LVH, abnormal overall, notably poor R wave progression (AR or related to LVH?) Continue to trend troponin to peak ECHO ordered Converted from a fib, cardizem discontinued Continue heparin Cardiology consult, appreciate recommendations #Leukocytosis potentially reactive 2/2 CPR/hypoxia/multifactorial Infectious work up pending Continue broad spectrum antibiotics #Hypophosphatemia iso respiratory failure Replace per ICU electrolyte protocol #Tumid Lupus Erythematosus -Follows Dr Bolaños, reported mild, followed Derm historically as manifestation predominately cutaneous -Home regimen: hydroxychloroquine 400mg qam #Obstructive sleep apnea/Obesity Hypoventilation syndrome #Morbid obesity -BMI 69.8, home cpap Currently intubated #Chronic lymphedema Participates with lymphedema therapy, compression stockings #CKD stage III, stable CR 1.2 and improving, baseline 0.8-0.9 Trend CR DVT prophylaxis On IV heparin Diet: as tolerated Analgesia: Fentanyl discontinued Sedation: discotinued DVT: Heparin ggt HOB 30degrees Ulcer PPX protonix Glucose management per ICU hyperglycemia protocol Exubated Gooden catheter in place 03/14 Deescalte abx contingent upon infectious work up Disposition ICU, downgrade likely Full code Admission and Anticipated Discharge Date Admission Date: March 14, 2023 Subjective Admitted overnight to ICU, extubated ends down checker, now on room air Tearful on exam this morning. No recollection of events, denies history of seizures, recent fevers/chills/urinary symptoms/bowel symptoms. Denies any history of chest pain or palpations. She denies any worsening of her baseline lymphedema Patient disoriented post-extubation and upset. She states she has been "so stressed" and relates everything to "stess" Physical Exam Constitutional: WD/WN, vitals as above Eyes: PERRL, conjunctivae normal, anicteric sclerae Neck: difficult to assess 2/2 habitus Respiratory: normal respiratory effort, lungs clear to auscultation Cardiovascular: faint, regular sounding Gastrointestinal (Abdomen): soft, obese Musculoskeletal: diffuse lymphedema bilateral lower legs Results & Data Results & Data Vital Signs (Past 12 Hours) Vital Signs Temp Pulse Pulse Resp BP BP Pulse Ox 03/15/23 04:00 03/15/23 03:59 03/15/23 02:34 85 22 100 03/15/23 01:21 03/15/23 01:19 03/15/23 01:18 03/15/23 01:10 03/15/23 01:00 35.9 C L 90 26 H 100 03/15/23 00:54 90 92/52 L 03/15/23 00:39 118 H 103/56 L 03/15/23 00:11 121 H 26 H 100 03/15/23 00:00 35.7 C L 120 H 28 H 100 03/14/23 23:57 100 03/14/23 23:55 35.7 C L 112 H 28 H 100 03/14/23 23:43 03/14/23 23:34 105 H 29 H 100 03/14/23 21:40 127 H 03/14/23 21:26 35.5 C L 130 H 28 H 98 03/14/23 21:26 118/91 03/14/23 21:21 35.5 C L 130 H 28 H 98 03/14/23 21:21 110/73 03/14/23 21:20 35.5 C L 130 H 28 H 99 03/14/23 21:16 35.5 C L 126 H 28 H 98 03/14/23 21:16 121/84 03/14/23 21:11 35.5 C L 126 H 28 H 98 03/14/23 21:11 116/98 03/14/23 21:10 35.5 C L 132 H 28 H 100 03/14/23 21:06 113/94 03/14/23 21:06 35.5 C L 130 H 28 H 99 03/14/23 21:00 35.5 C L 131 H 28 H 98 03/14/23 21:00 136/94 03/14/23 21:00 132 H 35 H 136/94 100 03/14/23 20:56 120/82 03/14/23 20:56 35.5 C L 132 H 28 H 99 03/14/23 20:51 35.5 C L 137 H 28 H 98 03/14/23 20:51 128/93 03/14/23 20:50 35.5 C L 138 H 28 H 98 03/14/23 20:46 35.6 C L 126 H 28 H 98 03/14/23 20:46 136/93 03/14/23 20:40 35.6 C L 128 H 28 H 99 03/14/23 20:36 35.6 C L 141 H 28 H 99 03/14/23 20:36 109/88 03/14/23 20:31 35.6 C L 132 H 28 H 95 03/14/23 20:31 122/92 03/14/23 20:30 35.6 C L 124 H 28 H 98 03/14/23 20:21 161/117 H 03/14/23 20:21 35.5 C L 28 H 90 03/14/23 20:20 35.5 C L 20 94 03/14/23 20:16 35.5 C L 28 H 96 03/14/23 20:16 106/85 03/14/23 20:11 35.4 C L 28 H 100 03/14/23 20:11 107/86 03/14/23 20:10 35.5 C L 28 H 100 03/14/23 19:47 35.7 C L 132 H 28 H 99 03/14/23 19:47 128/79 03/14/23 19:42 35.7 C L 133 H 28 H 99 03/14/23 19:42 108/84 03/14/23 19:40 35.8 C L 129 H 28 H 100 03/14/23 19:36 35.8 C L 140 H 28 H 98 03/14/23 19:36 136/88 03/14/23 19:30 144/89 H 03/14/23 19:30 35.8 C L 134 H 28 H 97 03/14/23 19:30 126 H 28 H 144/89 H 97 O2 Del Method O2 Del Method FiO2 03/15/23 04:00 30 03/15/23 03:59 30 03/15/23 02:34 40 03/15/23 01:21 40 03/15/23 01:19 Mechanical Vent 03/15/23 01:18 40 03/15/23 01:10 Mechanical Vent 40 03/15/23 01:00 03/15/23 00:54 03/15/23 00:39 03/15/23 00:11 40 03/15/23 00:00 03/14/23 23:57 40 03/14/23 23:55 03/14/23 23:43 50 03/14/23 23:34 60 03/14/23 21:40 03/14/23 21:26 03/14/23 21:26 03/14/23 21:21 03/14/23 21:21 03/14/23 21:20 03/14/23 21:16 03/14/23 21:16 03/14/23 21:11 03/14/23 21:11 03/14/23 21:10 03/14/23 21:06 03/14/23 21:06 03/14/23 21:00 03/14/23 21:00 03/14/23 21:00 Mechanical Vent 03/14/23 20:56 03/14/23 20:56 03/14/23 20:51 03/14/23 20:51 03/14/23 20:50 03/14/23 20:46 03/14/23 20:46 03/14/23 20:40 03/14/23 20:36 03/14/23 20:36 03/14/23 20:31 03/14/23 20:31 03/14/23 20:30 03/14/23 20:21 03/14/23 20:21 03/14/23 20:20 03/14/23 20:16 03/14/23 20:16 03/14/23 20:11 03/14/23 20:11 03/14/23 20:10 03/14/23 19:47 03/14/23 19:47 03/14/23 19:42 03/14/23 19:42 03/14/23 19:40 03/14/23 19:36 03/14/23 19:36 03/14/23 19:30 03/14/23 19:30 03/14/23 19:30 Mechanical Vent Laboratory Results Short CBC 03/14/23 03/15/23 Range/Units 17:56 04:39 WBC 8.32 13.52 H (4.8-10.8) K/ul Hgb 12.3 12.4 (12.0-16.0) g/dl Hct 40.6 40.0 (37.0-47.0) % Plt Count 266 309 (130-400) K/uL BMP 03/14/23 03/15/23 17:56 04:39 Sodium 139 135 L Potassium 3.6 4.2 Chloride 107 107 Carbon Dioxide 23 20 L BUN 20 17 Creatinine 1.20 1.02 Glucose 172 H 158 H Calcium 8.1 L 8.5 L Liver Function 03/14/23 03/15/23 Range/Units 17:56 04:39 Total Bilirubin 0.6 0.6 (0.2-1.0) mg/dl Direct Bilirubin 0.1 0.2 (0-0.2) mg/dl AST 74 H 62 H (13-39) U/L ALT 76 H 72 H (7-52) U/L Alkaline Phosphatase 88 74 (34-104) U/L Albumin 3.9 3.9 (3.4-5.0) gm/dl Urine 03/14/23 Range/Units 19:40 Urine Color Yellow Urine Appearance Cloudy A (Clear) Urine pH 8.0 H (4.5-7.5) Ur Specific [place] 1.025 (1.000-1.030) Urine Protein 3+ H (Negative) Urine Glucose (UA) Trace H (Negative) Medications Administered Home Medications Medication Instructions Recorded Confirmed Last Taken lorazepam 0.5 mg tablet 0.5 mg PO DAILY PRN Anxiety 10/04/20 03/14/23 Unknown Oxygen Home #1 ea 10/09/20 01/23/23 Unknown hydroxychloroquine 200 mg tablet 400 mg PO QAM 12/19/22 03/14/23 12/25/22 (Plaquenil) montelukast 10 mg tablet 10 mg PO QAM 12/19/22 03/14/23 12/25/22 (Singulair) venlafaxine 75 mg capsule,extended 75 mg PO QAM 01/23/23 03/14/23 Unknown release 24 hr albuterol sulfate 90 mcg/actuation 2 puff inhalation Q4H PRN Wheezing 03/14/23 03/14/23 Unknown aerosol inhaler cyanocobalamin (vitamin B-12) 1,000 mcg sublingual QAM 03/14/23 03/14/23 Unknown 1,000 mcg sublingual tablet omeprazole 40 mg capsule,delayed 40 mg PO DAILYBB 03/14/23 03/14/23 Unknown release Active Medications Generic Name Dose Route Start Last Admin Trade Name Freq PRN Reason Stop Dose Admin Fentanyl Citrate 2,500 mcg in 250 mls @ 0 mls/hr 03/14/23 18:15 03/15/23 06:20 Fentanyl Citrate IV 03/28/23 18:14 0 mcg/hr .Q0M WILMER 0 mls/hr Titration Protocol 0 MCG/HR Heparin Sodium/Dextrose 25,000 units in 500 mls @ 44 mls/hr 03/14/23 20:15 03/15/23 07:11 Heparin Sodium/Dextrose IV 04/13/23 20:14 2,200 units/hr .[id number] WILMER 44 mls/hr Titration Protocol 2,200 UNITS/HR Ceftriaxone Sodium 2,000 mg/ 50 mls @ 100 mls/hr 03/15/23 00:00 03/15/23 00:54 Dextrose IV 03/25/23 00:00 Infused Q12H WILMER Infusion Protocol Propofol 1,000 mg in 100 mls @ 0 mls/hr 03/14/23 23:20 03/15/23 06:20 Diprivan IV 03/17/23 23:19 0 mcg/kg/min .Q0M WILMER 0 mls/hr Titration Protocol 0 MCG/KG/MIN Parenteral Electrolytes 1,000 mls @ 115 mls/hr 03/15/23 00:15 03/15/23 07:13 Plasma-Lyte A Ph 7.4 IV 04/14/23 00:14 115 mls/hr .[id number] WILMER Administration Phenylephrine HCl 25 mg in 250 mls @ 62.67 mls/hr 03/15/23 00:49 03/15/23 06:20 Phenylephrine/Nss IV 04/14/23 00:48 0 mcg/kg/min .Q4H WILMER 0 mls/hr Titration Protocol 0.5 MCG/KG/MIN Sodium Phosphate 12 mmol/ 254 mls @ 125 mls/hr 03/15/23 06:30 03/15/23 06:32 Dextrose IV 03/15/23 08:31 125 mls/hr ONE ONE Administration
--- NOTE | 2023-03-15 08:10 | XRay Report ---
XR chest 1V portable HISTORY: ET tube placement. COMPARISON: Chest 03/14/2023. FINDINGS: Endotracheal tube is been pulled back and now resides 4.8 cm from the jonna. No pneumothor ax. No pleural effusions. The heart remains enlarged. There is mild central pulmonary vascular conges tion without overt edema. Left basilar linear densities favor subsegmental atelectasis. IMPRESSION: Endotracheal tube terminates 4.8 cm from the jonna. ACT 112: Negative or not required by law. Electronically signed by: Barrington Santos M.D. 03/15/2023 8:08 AM
--- NOTE | 2023-03-15 08:10 | XRay Report ---
XR chest 1V portable HISTORY: Respiratory failure. intubated eval lines/tubes and lung bateman COMPARISON: Chest 03/14/2023. FINDINGS: Endotracheal tube terminates 4.5 cm from the jonna. Nasogastric tube terminates in the sto mach. There are low lung volumes. The heart remains enlarged. Bibasilar linear densities and trace bi lateral pleural effusions or suggested. There is progressive perihilar interstitial/vascular thickeni ng likely representing pulmonary edema. Left perihilar density has also progressed. IMPRESSION: 1. Satisfactory support line placement. 2. Cardiomegaly and mild pulmonary edema has progressed. 3. Patchy bibasilar densities in the left perihilar density has also progressed. This could represent atelectasis or a pneumonia. ACT 112: Negative or not required by law. Electronically signed by: Barrington Santos M.D. 03/15/2023 8:08 AM
--- NOTE | 2023-03-15 09:31 | Pharmacy Report ---
Pharmacy PK ABX Note - Date of Service March 15, 2023 - Assessment and Plan Assessment * 47 year old F receiving ceftriaxone and vancomycin for treatment of possible meningitis. * BMI of 69.2 kg/m2 - will need to be more aggressive with vancomycin dosing initially to ensure therapeutic levels *initially*. Therefore will target supratherapeutic AUC for now per [employer]ado estimate, because this is what is anticipated *at steady state*, not initially. Will therefore likely need to adjust dose ongoing to ensure steady state level does not become supratherapeutic. Frequent monitoring of levels will be indicated throughout the course of therapy Plan Vancomycin * Loading dose: 2750 mg IV x 1 * Maintenance dose: 1000 mg IV every 8 hours * Target AUC/BRANNON of 400-600 mg/L.hr * Above regimen predicted to achieve a *steady state* AUC of 709 mg/L.hr, but t his regimen is appropriate for *initial* dosing to ensure levels are therapeutic now * Trough level ordered for 03/16 @ 0730 Pharmacy will continue to follow and will adjust dose/frequency as necessary. Thank you. Pharmacy has transitioned to AUC monitoring for vancomycin. AUC/BRANNON is the preferred PK/PD target and is associated with decreased risk of nephrotoxicity compared to traditional trough targets.
--- NOTE | 2023-03-15 09:46 | Critical Care Progress Note ---
Date of Service March 15, 2023 Assessment & Plan (1) Encephalopathy: (2) Respiratory failure requiring intubation: (3) Metabolic acidosis: (4) Respiratory acidosis: (5) Lactic acidosis: (6) Elevated liver enzymes: Plan Reason Critically Ill: 47 YOF with acute onset of dyspnea followed by respiratory arrest, she remained hypoxic and unresponsive in the EMD requiring emergent intubation and mechanical ventilation, subsequently found to be in what appears new afib with RVR. She will be admitted to follow neurological status as to this point in time has not returned back to baseline, follow respiratory mechanics, and hemodynamics. Neuro - Encephalopathy CAM ICU: - JASMINA -Etiology unclear. Perhaps hypoxemic encephalopathy. EEG results pending. MRI brain negative. Currently on meningitis doses of vancomycin and ceftriaxone empirically. Cardiac - Afib new onset, Shock - Appears as new onset afib with RVR- she is without ischemic STEMI changes on ECG- initial HsCTNI is negative -She has spontaneously converted to a sinus rhythm. - ? there was report of lost pulse however no shock advised and return of pulse was without any pharmacological intervention to the information that was provided Respiratory - Hypercarbic/Hypoxic respiratory failure requiring intubation with mechanical ventilation - Etiology at this time is unclear of her acute failure-no PE identified on CT chest. - mild bilateral base infiltrate vs. atelectasis - Will continue with Heparin infusion -Respiratory BioFire was positive for coronavirus H KU 1. GI - Fatty liver disease, elevated LFTs - LFTS elevated in acute setting of hypoxia respiratory failure- with normal INR- this is likely from low perfusion/oxygenation will trend in morning - this may also be related to right sided heart failure in setting of chronic PAM, super morbid obesity, or inflammatory RENAL/LYTES - Non gap metabolic acidosis, lactic acidosis, respiratory acidosis - Replace electrolytes as needed - supportive care -Lactate resolved. - Gooden to gravity - no acute needs - urine without acute infectious etiology ENDO - Elevated serum glucose without diagnosis of diabetes - she is with protein in urine - ICU hyperglycemic protocol HEME - No acute needs ID - SIRS - Technically meets SIRS criteria with HR, Temp- unknown source at this time. She is without elevated WBC and PCT is negative - however she is with bilateral mild infiltrate on CT chest- likely atelectasis - and will empirically treat for neurologic infection LINES/IV ACCESS - PIV, Gooden catheter, Arterial line DVT PROPHYLAXIS - SCDS, Heparin infusion DISPO: Okay for downgrade to PCU status. Admission and Anticipated Discharge Date Admission Date: March 14, 2023 Subjective Patient off sedation and able to follow commands minimally. She is doing well on a spontaneous breathing trial and was ultimately extubated. She is saturating well on nasal cannula. EEG completed this morning. Review of Systems Review of Systems: Unobtainable due to cognitive status Physical Exam Physical Exam: Constitutional: Patient appears to be of their stated age. Patient is in no apparent distress. Patient is well-developed. Eyes: Pupils are equal round and reactive to light. Conjunctivae are normal. Anicteric sclera. Ears nose, mouth and throat: Mallampati class 3. Normal posterior oropharynx. Uvula is midline. Neck: Trachea is midline. Visual inspection is normal. Respiratory: Clear to auscultation bilaterally. No use of accessory muscles. No significant clubbing noted. Cardiovascular: Regular rate and rhythm. No murmurs. No edema. Gastrointestinal: Normal bowel sounds, soft, nontender and nondistended. No hepatosplenomegaly noted. Musculoskeletal: No cyanosis. Patient is able to move all extremities. Strength is 5 out of 5 in the upper and lower extremities. Skin: No rashes, warm dry and intact. Neurologic: Disoriented, but alert. No focal signs. Psychiatric: Disoriented, but alert. Results & Data Results & Data Vital Signs (Past 12 Hours) Vital Signs Temp Pulse Resp BP Pulse Ox O2 Del Method O2 Del Method 03/15/23 07:45 87 17 99 03/15/23 04:00 03/15/23 03:59 03/15/23 02:34 85 22 100 03/15/23 01:21 03/15/23 01:19 Mechanical Vent 03/15/23 01:18 03/15/23 01:10 Mechanical Vent 03/15/23 01:00 35.9 C L 90 26 H 100 03/15/23 00:54 90 92/52 L 03/15/23 00:39 118 H 103/56 L 03/15/23 00:11 121 H 26 H 100 03/15/23 00:00 35.7 C L 120 H 28 H 100 03/14/23 23:57 100 03/14/23 23:55 35.7 C L 112 H 28 H 100 03/14/23 23:43 03/14/23 23:34 105 H 29 H 100 FiO2 03/15/23 07:45 30 03/15/23 04:00 30 03/15/23 03:59 30 03/15/23 02:34 40 03/15/23 01:21 40 03/15/23 01:19 03/15/23 01:18 40 03/15/23 01:10 40 03/15/23 01:00 03/15/23 00:54 03/15/23 00:39 03/15/23 00:11 40 03/15/23 00:00 03/14/23 23:57 40 03/14/23 23:55 03/14/23 23:43 50 03/14/23 23:34 60 Coding Level of Care Code 90385 SUB INP/OBS CARE 350MIN Diagnoses Encephalopathy G93.40 Respiratory failure requiring intubation J96.90 Metabolic acidosis E87.20 Respiratory acidosis E87.29 Lactic acidosis E87.20 Elevated liver enzymes R74.8
[2023-03-15 10:06] LABS: iSTAT Art Bld Gas pCO2 Correct 39 mmHg (35-46); iSTAT Art Bld Gas pH Corrected 7.319 (7.35-7.45); iSTAT Arterial Blood Gas HCO3 20 meg/L (19-24); iSTAT Arterial Blood Gas pCO2 39 mmHg (35-46); iSTAT Arterial Blood Gas pH 7.32 (7.35-7.45); iSTAT Arterial Blood Gas pO2 58 mmHg (80-95); iSTAT Arterial Blood Gas pO2 C 58; iSTAT Carbon Dioxide 21 mmol/L (24-31); iSTAT Hematocrit 35 % (37-47); iSTAT Hemoglobin 11.9 g/dl (12.0-16.0); iSTAT Potassium 4.2 mmol/L (3.3-5.0); iSTAT Site Art Line; iSTAT Sodium 137 mmol/L (135-144)
[2023-03-15 10:38] LABS: Hematocrit (blood only) 37.1 % (37.0-47.0); Hemoglobin 11.7 g/dl (12.0-16.0); Mean Corpuscular Hemoglobin 24.7 pg (25.0-34.0); Mean Corpuscular Hgb Conc 31.5 g/dL (32.0-36.0); Mean Corpuscular Volume 78.4 fL (80.0-100.0); Mean Platelet Volume 9.9 fL (9.4-12.4); Platelet Count 250 K/uL (130-400); RDW Coefficient of Variation 14.6 % (11.5-14.5); RDW Standard Deviation 41.8 fL (36.4-46.3); Red Blood Count 4.73 M/uL (4.20-5.40); White Blood Count 10.63 K/ul (4.8-10.8)
[2023-03-15] MEDS ORDERED: PANTOprazole 40 MG in SYRINGE 0 ML IV SCH (11:00)
--- NOTE | 2023-03-15 11:00 | Cardiology Consultation ---
Date of Consultation March 15, 2023 Assessment & Plan (1) Atrial fibrillation: In review of outside records through [facility] system there is no prior documented AF; although given her body habitus and presumed sleep apnea she is at risk for having AF. ?did she have AF as a response to the acute respiratory failure? ?I feel given her normal EF it would be unlikely for AF with RVR to result in that degree of acute respiratory failure but given her AMS i prefer to hold off on anti-coagulation; her [id number] is low so think we can avoid DOAC for now; but if she has recurrent AF during the hospitalization then I would recommend starting a DOAC I think it is reasonable to start metoprolol tartrate 25mg BID as long as she is taking PO Upon discharge she should have a zio patch (2) Prolonged QT interval: Pt's QTc is longer than her usually today on the ECG in SR however pt is on QT prolonged agents at home (Plaquenil and venlafaxine) and then was on propofol overnight. Her baseline QTc after my review of ECGs from [facility] EMR system as well as that in the [facility] EMR going back to 2011 is typically 466-488ms. So i do not think a qtc of 511ms on today's ECG is concerning. I do not think a TdP is the etiology for her acute event bringing her to the hospital. avoid QT prolonging agents (3) Encephalopathy: ?unclear etiology; i really do not feel it is primary cardiac etiology for this we need to talk further with the family to have mroe details about the last few weeks/ months and how pt has been feeling and doing (4) Respiratory failure requiring intubation: ?unclear etiology? but I do not feel it is primary cardiology as the source-her EF is normal ?CO2 narcosis? she is doing ok since being extubated today difficult to assess by her body habitus but overall i do not get a sense that she is volume overloaded and i do not think she needs any diuresis (5) Metabolic acidosis: (6) Respiratory acidosis: (7) Lactic acidosis: (8) Elevated liver enzymes: (9) Elevated alpha fetoprotein: (10) Coronavirus infection: Plan 47y/o F PMH morbid obesity, depression, anxiety, LAFB, GERD (recently started on omprezole). In review of out patient PCP notes through the [facility] EMR-pt was seeing PCP for some back pain, knee pain and GERD. She was also in the ER recently for back pain. She was admitted with acute respiratory failure requiring intubation and was in AF with RVR at the time. She has converted to SR and is maintaining SR-again per my review of records no prior documented AF. Pt is confused post extubation and unable to recollect events leading to admission. EF is normal on echo as well as RV looks good QTc slightly long is expected given she is on QT prolonging agents at home and then got more agents for sedation when intubated-i would continue to monitor with daily ECGs and try to avoid any QT prolonging agents for now I am finding a difficult cardiac etiology for the acute events at this time Monitor in ICU and on telemetry Abx and pulmonary care per ICU team If pt is not on CPAP at home she will need an outpt sleep study and probably would benefit from it I do not think she needs diuretics at this juncture I would like to start metoprolol 25mg BID Hold off on AC unless she has recurrent AF History of Present Illness Reason for Consultation: AF Requesting Physician: Dr. Garcia Attending Physician: Kathy Monson MD History of Present Illness Pt admitted due to encephalopathy and acute respiratory distress requiring intubation. was found also to be in AF with RVR on admission and converted to SR she was extubated this morning When I saw her this afternoon-she was only oriented to her name-not place or the year she knows she lives with her daughter and she does not know what happened; she can not tell me if she was sick or not feeling herself the last few weeks Allergies Allergy/AdvReac Type Severity Reaction Status Date / Time Penicillins Allergy Severe Vomiting Verified 03/14/23 17:52 adhesive Allergy Intermediate localized Verified 03/14/23 17:52 rash sumatriptan AdvReac Severe vertigo/diz Verified 03/14/23 17:52 ziness/naus ea Home Medications Medication Instructions Recorded Confirmed Type lorazepam 0.5 mg tablet 0.5 mg PO DAILY PRN Anxiety 10/04/20 03/14/23 History Oxygen Home #1 ea 10/09/20 01/23/23 Rx hydroxychloroquine 200 mg tablet 400 mg PO QAM 12/19/22 03/14/23 History (Plaquenil) montelukast 10 mg tablet 10 mg PO QAM 12/19/22 03/14/23 History (Singulair) venlafaxine 75 mg capsule,extended 75 mg PO QAM 01/23/23 03/14/23 History release 24 hr albuterol sulfate 90 mcg/actuation 2 puff inhalation Q4H PRN Wheezing 03/14/23 03/14/23 History aerosol inhaler cyanocobalamin (vitamin B-12) 1,000 mcg sublingual QAM 03/14/23 03/14/23 History 1,000 mcg sublingual tablet omeprazole 40 mg capsule,delayed 40 mg PO DAILYBB 03/14/23 03/14/23 History release Patient History Medical History Morbid obesity Fatty liver History of COVID-19 09/2020 developed covid pneumonia and treated inpatient at [facility] at the time. no problems since. Seasonal allergies Anxiety Dyspnea on exertion Sleep apnea cpap at night Lymphedema bilateral legs CKD (chronic kidney disease) stage 3 - monitoring GERD (gastroesophageal reflux disease) Lupus Surgical History History of colonoscopy Family History Other No family history of adverse response to anesthesia Social History Smoking Status: Unknown if ever smoked Second Hand Exposure: No; Do You Dip or Chew Tobacco: No; Hx Substance Use: No Preferred Language: Telugu Communication Ability: Effective Structural Analyst Required: No Beliefs That Will Affect Care: None marital status: Current Living Situation: Spouse and Family Current Living Situation Comment: Lives with and daughter/son in law and grandchildren x2 current occupational status: unemployed Feels Safe at Home: Yes Assistive Devices: CPAP and Glasses Review of Systems Review of Systems: Unobtainable due to cognitive status Physical Exam Physical Exam: oriented to name only NC/AT sclera non-icteric, EOMI Supple No JVD Nrl S1/S2, No murmur CTA b/l soft nt/nd, obese + LE swelling b/l Results & Data Vital Signs (Past 12 Hours) Vital Signs Temp Pulse Resp BP Pulse Ox O2 Del Method O2 Del Method 03/15/23 10:00 37.0 C 82 24 98 Room Air 03/15/23 09:00 37.1 C 94 H 27 H 100 Oxymask 03/15/23 08:00 37.1 C 79 13 100 03/15/23 08:00 03/15/23 07:45 87 17 99 03/15/23 07:00 37.1 C 103 H 22 99 Mechanical Vent 03/15/23 04:00 03/15/23 03:59 03/15/23 02:34 85 22 100 03/15/23 01:21 03/15/23 01:19 Mechanical Vent 03/15/23 01:18 03/15/23 01:10 Mechanical Vent 03/15/23 01:00 35.9 C L 90 26 H 100 03/15/23 00:54 90 92/52 L 03/15/23 00:39 118 H 103/56 L 03/15/23 00:11 121 H 26 H 100 03/15/23 00:00 35.7 C L 120 H 28 H 100 03/14/23 23:57 100 03/14/23 23:55 35.7 C L 112 H 28 H 100 03/14/23 23:43 03/14/23 23:34 105 H 29 H 100 O2 Flow Rate FiO2 03/15/23 10:00 03/15/23 09:00 2 03/15/23 08:00 03/15/23 08:00 30 03/15/23 07:45 30 03/15/23 07:00 30 03/15/23 04:00 30 03/15/23 03:59 30 03/15/23 02:34 40 03/15/23 01:21 40 03/15/23 01:19 03/15/23 01:18 40 03/15/23 01:10 40 03/15/23 01:00 03/15/23 00:54 03/15/23 00:39 03/15/23 00:11 40 03/15/23 00:00 03/14/23 23:57 40 03/14/23 23:55 03/14/23 23:43 50 03/14/23 23:34 60 Laboratory Results Cardiac Enzymes 03/14/23 03/15/23 03/15/23 Range/Units 17:56 00:00 04:39 AST 74 H 62 H (13-39) U/L Troponin I High Sens 11.6 115.1 H* D 142.8 H* D (0-14) pg/ml B-Natriuretic Peptide 77 (0-100) pg/ml Coagulation 03/14/23 Range/Units 17:56 PT 11.2 (9.0-12.0) Seconds APTT 24 (21-31) Seconds B-Natriuretic Peptide 77 (0-100) pg/ml CBC 03/14/23 03/15/23 03/15/23 Range/Units 17:56 04:39 10:24 WBC 8.32 13.52 H 10.63 (4.8-10.8) K/ul RBC 4.97 5.04 4.73 (4.20-5.40) M/uL Hgb 12.3 12.4 11.7 L (12.0-16.0) g/dl Hct 40.6 40.0 37.1 (37.0-47.0) % Plt Count 266 309 250 (130-400) K/uL Neut # (Auto) 5.13 12.40 H (1.40-6.50) K/uL Lymph # (Auto) 2.44 0.68 L (1.20-3.40) K/uL [place] # (Auto) 0.49 0.33 (0.11-0.59) K/uL Eos # (Auto) 0.11 0.00 (0.00-0.50) K/uL Baso # (Auto) 0.03 0.02 (0.00-0.20) K/uL Comprehensive Metabolic Panel 03/14/23 03/15/23 Range/Units 17:56 04:39 Sodium 139 135 L (136-145) mmol/L Potassium 3.6 4.2 (3.5-5.1) mmol/L Chloride 107 107 (98-107) mmol/L Carbon Dioxide 23 20 L (21-32) mmol/L BUN 20 17 (6-23) mg/dl Creatinine 1.20 1.02 (0.6-1.2) mg/dl Glucose 172 H 158 H (70-99(Fasting)) mg/dl Calcium 8.1 L 8.5 L (8.6-10.3) mg/dl Direct Bilirubin 0.1 0.2 (0-0.2) mg/dl AST 74 H 62 H (13-39) U/L ALT 76 H 72 H (7-52) U/L Alkaline Phosphatase 88 74 (34-104) U/L Total Protein 6.9 7.1 (6.0-8.3) gm/dl Albumin 3.9 3.9 (3.4-5.0) gm/dl Intake and Output 03/14/23 03/15/23 03/15/23 22:59 06:59 14:59 Intake Total 2064 / 4390.070 2326.070 / 4390.070 1183.250 / 1183.250 Output Total 575 / 575 Balance 2063 / 3815.070 1751.070 / 3815.070 1183.250 / 1183.250 Intake: IV 2063 / 4390.070 2326.070 / 4390.070 1183.250 / 1183.250 Acyclovir Sod 1,250 mg In 275 / 275 Dextrose 5% 250 ml @ 250 mls/hr IV NOW ONE Rx#:[id number] Calcium Gluconate 1,000 mg In 60 / 60 60 ml @ 240 mls/hr IV NOW STA Rx#:[id number] Heparin Sodium/Dextrose 25,000 330.733 / 330.733 176.000 / 176.000 units In 500 ml @ 2,200 UNITS/ HR 44 mls/hr IV .[id number] [facility] Rx #:[id number] Magnesium Sulfate / D5w 1 gm In 188.333 / 188.333 100 ml @ 50 mls/hr IV Q2H [facility] Rx#:[id number] Midazolam HCl 125 mg In 250 ml 0 / 0 0 / 0 @ 1 MG/HR 2 mls/hr IV .Q96H PRN Rx#:[id number] Phenylephrine/Nss 25 mg In 250 258.367 / 258.367 ml @ 0.5 MCG/KG/MIN 62.67 mls/ hr IV .Q4H [facility] Rx#:[id number] Plasma-Lyte A 1,000 ml @ 115 250 / 250 753.25 / 753.25 mls/hr IV .Q8H42M [facility] Rx#: [id number] Sodium Chloride 0.9% 1,000 ml @ 2000 / 2000 999 mls/hr IV .Q1H1M ONE Rx#: [id number] Sodium Phosphate 12 mmol In 254 / 254 Dextrose 5% 250 ml @ 125 mls/hr IV ONE ONE Rx#:[id number] Vancomycin HCl 2,750 mg In 555 / 555 Sodium Chloride 0.9% 500 ml @ 180 mls/hr IV NOW ONE Rx#: [id number] cefTRIAXone SODIUM 2,000 mg In 50 / 50 Dextrose 5 % Mini-B 50 ml @ 100 mls/hr IV Q12H [facility] Rx#: [id number] dilTIAZem HCL 125 mg In 125 / 125 Dextrose 5% 100 ml @ 5 MG/HR 5 mls/hr IV .Q24H [facility] Rx#: [id number] fentaNYL citrate 2,500 mcg In 4 / 52.25 48.25 / 52.25 0 / 0 250 ml @ 50 MCG/HR 5 mls/hr IV .Q50H [facility] Rx#:[id number] propofoL 1,000 mg In 100 ml @ 245.387 / 245.387 30 MCG/KG/MIN 37.602 mls/hr IV .Q2H40M [facility] Rx#:[id number] Oral 0 / 0 Output: Urine Amount (Catheter) 575 / 575 Temp Sensing [place] 575 / 575 Other: Weight 208.9 kg 206.3 kg Weight Measurement Method Built in [facility] Built in [facility] Diagnostic Findings Echo: 03/15/2023 limited views due to body habitus Overall EF is normal and with Definity there is no significant valvular pathology, RV appears normal in size and function CXR Today 03/15/23 Based on my independent interpretation: b/l lower lobe opacities (left greater than right) cardiomegaly ET tube in position MRI Brain and CTA neck 03/14/2023: unremarkable Medications Administered Current Inpatient Medications Fentanyl Citrate (Fentanyl Citrate) 2,500 mcg in 250 mls @ 0 mls/hr IV .Q0M [facility]; Protocol Stop: 03/28/23 18:14 Last Titration: 03/15/23 09:15 Dose: Infused Heparin Sodium/Dextrose (Heparin Sodium/Dextrose) 25,000 units in 500 mls @ 44 mls/hr IV .[id number] [facility]; Protocol Stop: 04/13/23 20:14 Last Titration: 03/15/23 08:23 Dose: 0 units/hr, 0 mls/hr Ceftriaxone Sodium 2,000 mg/ (Dextrose) 50 mls @ 100 mls/hr IV Q12H [facility]; Pro tocol Stop: 03/25/23 00:00 Last Infusion: 03/15/23 00:54 Dose: Infused Pantoprazole Sodium 40 mg/ (Syringe) 10 mls @ 5 mls/min IV DAILY@1100 [facility] Stop: 04/14/23 10:59 Propofol (Diprivan) 1,000 mg in 100 mls @ 0 mls/hr IV .Q0M [facility]; Protocol Stop: 03/17/23 23:19 Last Titration: 03/15/23 06:20 Dose: 0 mcg/kg/min, 0 mls/hr Parenteral Electrolytes (Plasma-Lyte A Ph 7.4) 1,000 mls @ 115 mls/hr IV .Q8H42M [facility] Stop: 04/14/23 00:14 Last Admin: 03/15/23 07:13 Dose: 115 mls/hr Phenylephrine HCl (Phenylephrine/Nss) 25 mg in 250 mls @ 62.67 mls/hr IV .Q4H [facility]; Protocol Stop: 04/14/23 00:48 Last Titration: 03/15/23 06:20 Dose: 0 mcg/kg/min, 0 mls/hr Vancomycin HCl 1,000 mg/ (Sodium Chloride) 270 mls @ 200 mls/hr IV Q8H [facility] Stop: 03/25/23 15:59 Miscellaneous (Icu Protocol For Hyperglycemia) 1 each N/A ACHS [facility] Stop: 03/17/23 07:29 Miscellaneous Information (Vancomycin Consult Active) 1 each N/A UD PRN PRN Reason: Consult Stop: 04/13/23 22:43 Propofol (Propofol Bolus From Bag) 20 mg IV Q5M PRN PRN Reason: Sedation Stop: 03/17/23 23:19 Last Admin: 03/15/23 07:45 Dose: 20 mg ECG Additional Comments: ECGS 03/15/23: SR 81bpm LAFB Prolonged QT 500ms LVH QTc 511ms 03/15/2023: AF 79bpm LVH with QRS widening qtc 488ms 03/14/2022: AF 143bpm Nonspecific ST & T wave changes LVH qtc 489ms 01/23/2023 SR LVH LAFB QTc 462ms
[2023-03-15] MEDS: ICU Protocol for HYPERglycemia SCH ×3 (11:48→20:29)
[2023-03-15] MEDS: cefTRIAXone SODIUM 2,000 MG in DEXTROSE 5 % MINI-B 50 ML IV SCH ×2 (11:51→23:29)
[2023-03-15] MEDS ORDERED: ROCURONIUM BROMIDE 10 MG/ML 5 ML VIAL IV ONE (12:36)
[2023-03-15] MEDS ORDERED: fentaNYL citrate PF 100 MCG/2 ML VIAL IV ONE (12:36)
[2023-03-15] MEDS ORDERED: LORazepam 2 MG/1 ML VIAL IV ONE (12:36)
--- NOTE | 2023-03-15 14:03 | Neurology Consultation ---
Date of Consultation March 15, 2023 Assessment & Plan (1) Encephalopathy: 47-year-old female patient with multiple risk factors as above presenting with an episode of loss of consciousness with loss of pulse, later found to be in A- fib with RVR, she had respiratory difficulty and intubation, extubated today and appears to be confused. The patient's exam seem to be nonfocal, suspect medication effect. Episode of loss of consciousness could be hypotension due to the A-fib with RVR? 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 Okay with antibiotic coverage for now Will follow EEG. Consider long-term cardiac monitoring to monitor arrythmias . (2) Loss of consciousness: See above Telehealth Consultation Telehealth Information Telehealth Information: I performed this visit using a real-time telehealth connection between my location and the patients location ([facility]). After connecting through interactive tele-video, patient was identified by name and date of and/or wristband check.Patient (or authorized healthcare novelties sales representative) was informed that this was a telemedicine visit and it was being conducted confidentially over secure lines. My office door was closed and no one else was present in the room with me.Patient (or authorized healthcare novelties sales representative) provided consent to proceed with the visit, expressed an understanding of privacy and security of the telemedicine visit, and gave permission to have a hospital novelties sales representative in the room in order to assist with the visit and to conduct portions of the visit, as needed. I informed the patient (or authorized healthcare novelties sales representative) that I reviewed their record and presented the opportunity for them to ask any questions regarding the visit today. The patient agreed to participate. History of Present Illness Reason for Consultation: AMS Requesting Physician: Dr Monson Attending Physician: Kathy Monson MD History of Present Illness Is a 47-year-old female patient with PMH of morbid obesity, CKD 3, PAM, anxiety and lymphedema, in addition to B12 deficiency was presented to the ED yesterday with an unresponsive episode where she was sitting outside and collapsed noted to be gasping for air she appeared cyanotic, EMS arrival the patient was reported to be with no pulse, however reports of resuscitation she had spontaneous return of circulation. She was intubated in the emergency room, was found to be in rapid A-fib and was started on heparin, she was sedated, sedated medications held this morning today MRI was done and did not show any acute ischemia. She is awake and alert but she seems to drift in out of confusion. EEG is still pending. She is on meningitic doses of vancomycin and ceftriaxone, she remains with hypercarbic hypoxemic respiratory failure. Upon evaluation today the patient could not contribute much to giving history as she did not remember the event and was confused Allergies Allergy/AdvReac Type Severity Reaction Status Date / Time Penicillins Allergy Severe Vomiting Verified 03/14/23 17:52 adhesive Allergy Intermediate localized Verified 03/14/23 17:52 rash sumatriptan AdvReac Severe vertigo/diz Verified 03/14/23 17:52 ziness/naus ea Home Medications Medication Instructions Recorded Confirmed Type lorazepam 0.5 mg tablet 0.5 mg PO DAILY PRN Anxiety 10/04/20 03/14/23 History Oxygen Home #1 ea 10/09/20 01/23/23 Rx hydroxychloroquine 200 mg tablet 400 mg PO QAM 12/19/22 03/14/23 History (Plaquenil) montelukast 10 mg tablet 10 mg PO QAM 12/19/22 03/14/23 History (Singulair) venlafaxine 75 mg capsule,extended 75 mg PO QAM 01/23/23 03/14/23 History release 24 hr albuterol sulfate 90 mcg/actuation 2 puff inhalation Q4H PRN Wheezing 03/14/23 03/14/23 History aerosol inhaler cyanocobalamin (vitamin B-12) 1,000 mcg sublingual QAM 03/14/23 03/14/23 History 1,000 mcg sublingual tablet omeprazole 40 mg capsule,delayed 40 mg PO DAILYBB 03/14/23 03/14/23 History release Patient History Medical History Morbid obesity Fatty liver History of COVID-19 09/2020 developed covid pneumonia and treated inpatient at [facility] at the time. no problems since. Seasonal allergies Anxiety Dyspnea on exertion Sleep apnea cpap at night Lymphedema bilateral legs CKD (chronic kidney disease) stage 3 - monitoring GERD (gastroesophageal reflux disease) Lupus Surgical History History of colonoscopy Family History Other No family history of adverse response to anesthesia Social History Smoking Status: Unknown if ever smoked Second Hand Exposure: No; Do You Dip or Chew Tobacco: No; Hx Substance Use: No Preferred Language: Cymro Communication Ability: Effective Guide Changer Required: No Beliefs That Will Affect Care: None marital status: Current Living Situation: Spouse and Family Current Living Situation Comment: Lives with and daughter/son in law and grandchildren x2 current occupational status: unemployed Feels Safe at Home: Yes Assistive Devices: CPAP and Glasses Review of Systems Cannot be obtained Physical Exam General Constitutional: Appearance normally developed with morbid obesity Head and face: normocephalic and atraumatic Eyes: no ptosis, no anisocoria, and no dysconjugate gaze Respiratory: normal effort Cardiovascular: regular rhythm and regular rate Abdomen: non distended Skin: no rashes, lesions, or ulcers noted Psychiatric: Calm and appears confused NEUROLOGIC EXAMINATION: Mental Status:alert, oriented , place, person, to the month but not to the date she cannot remember why she was in the hospital but not being the president was able to name objects and repeat seems to have a little dazed look on her face but able to cooperate with exam . Cranial Nerves: CN 2 - no visual defect on confrontation and pupils round, equal, reactive to light CN 3, 4, 6 - extra-ocular movements intact and no nystagmus CN 5 - facial sensation intact CN 7 - no facial asymmetry CN 8 - intact hearing CN 9, 10 - palate symmetric, normal gag CN 11 - good shoulder shrug CN 12 - tongue midline MOTOR: Strength was at least antigravity throughout, Pronator drift was absent and There were no abnormal movements SENSATION: intact and symmetric to pinprick, light touch, vibration and joint position GAIT: deferred COORDINATION: no ataxia with finger to nose testing REFLEXES: cannot assess over telemedicine Results & Data Vital Signs (Past 12 Hours) Vital Signs Temp Pulse Resp Pulse Ox O2 Del Method O2 Flow Rate FiO2 03/15/23 10:00 37.0 C 82 24 98 Room Air 03/15/23 09:00 37.1 C 94 H 27 H 100 Oxymask 2 03/15/23 08:00 37.1 C 79 13 100 03/15/23 08:00 30 03/15/23 07:45 87 17 99 30 03/15/23 07:00 37.1 C 103 H 22 99 Mechanical Vent 30 03/15/23 04:00 03/15/23 03:59 30 03/15/23 02:34 85 22 100 40 Laboratory Results Abnormal lab results 03/14/23 03/14/23 03/14/23 Range/Units 17:56 17:58 18:23 WBC (4.8-10.8) K/ul Hgb (12.0-16.0) g/dl POC Hgb 11.6 L (12.0-16.0) g/dl POC Hct 34 L (37-47) % MCV (80.0-100.0) fL MCH 24.7 L (25.0-34.0) pg MCHC 30.3 L (32.0-36.0) g/dL RDW Coeff of Dionicio (11.5-14.5) % Neut # (Auto) (1.40-6.50) K/uL Lymph # (Auto) (1.20-3.40) K/uL POC pH 7.22 L (7.35-7.45) POC pCO2 49 H (35-46) mmHg POC pO2 259 H (80-95) mmHg ABG pH (Temp Correct) (7.35-7.45) POC ABG O2 Sat 100.0 H (90-95) % Sodium (136-145) mmol/L Carbon Dioxide (21-32) mmol/L POC Total CO2 22 L 21 L (24-31) mmol/L Glucose 172 H (70-99(Fasting)) mg/dl POC Glucose (70-99) mg/dl POC Glucose (other) 162 H (70-99) mg/dl Lactate 3.1 H* (0.4-2.0) mmol/L Calcium 8.1 L (8.6-10.3) mg/dl Phosphorus (2.5-4.9) mg/dl AST 74 H (13-39) U/L ALT 76 H (7-52) U/L Troponin I High Sens (0-14) pg/ml TSH 8.626 H (0.300-4.500) uIu/ml Urine Appearance (Clear) Urine pH (4.5-7.5) Urine Protein (Negative) Urine Glucose (UA) (Negative) Urine Blood (Negative) Urine WBC (Auto) (0-5) /hpf Urine RBC (Auto) (0-4) /hpf U Hyaline Cast (Auto) (0-5) /lpf U Epithel Cells (Auto) (0-5) /lpf Coronavirus HKU1 (PCR) (NotDetected) 03/14/23 03/14/23 03/14/23 Range/Units 19:14 19:40 20:40 WBC (4.8-10.8) K/ul Hgb (12.0-16.0) g/dl POC Hgb (12.0-16.0) g/dl POC Hct 36 L (37-47) % MCV (80.0-100.0) fL MCH (25.0-34.0) pg MCHC (32.0-36.0) g/dL RDW Coeff of Dionicio (11.5-14.5) % Neut # (Auto) (1.40-6.50) K/uL Lymph # (Auto) (1.20-3.40) K/uL POC pH 7.24 L (7.35-7.45) POC pCO2 49 H (35-46) mmHg POC pO2 212 H (80-95) mmHg ABG pH (Temp Correct) (7.35-7.45) POC ABG O2 Sat 100.0 H (90-95) % Sodium (136-145) mmol/L Carbon Dioxide (21-32) mmol/L POC Total CO2 22 L (24-31) mmol/L Glucose (70-99(Fasting)) mg/dl POC Glucose (70-99) mg/dl POC Glucose (other) (70-99) mg/dl Lactate 4.2 H* (0.4-2.0) mmol/L Calcium (8.6-10.3) mg/dl Phosphorus (2.5-4.9) mg/dl AST (13-39) U/L ALT (7-52) U/L Troponin I High Sens (0-14) pg/ml TSH (0.300-4.500) uIu/ml Urine Appearance Cloudy A (Clear) Urine pH 8.0 H (4.5-7.5) Urine Protein 3+ H (Negative) Urine Glucose (UA) Trace H (Negative) Urine Blood 2+ H (Negative) Urine WBC (Auto) >30 H (0-5) /hpf Urine RBC (Auto) 5-10 H (0-4) /hpf U Hyaline Cast (Auto) 5-10 H (0-5) /lpf U Epithel Cells (Auto) 20-30 H (0-5) /lpf Coronavirus HKU1 (PCR) (NotDetected) 03/14/23 03/15/23 03/15/23 Range/Units 21:34 00:00 00:05 WBC (4.8-10.8) K/ul Hgb (12.0-16.0) g/dl POC Hgb (12.0-16.0) g/dl POC Hct (37-47) % MCV (80.0-100.0) fL MCH (25.0-34.0) pg MCHC (32.0-36.0) g/dL RDW Coeff of Dionicio (11.5-14.5) % Neut # (Auto) (1.40-6.50) K/uL Lymph # (Auto) (1.20-3.40) K/uL POC pH 7.26 L (7.35-7.45) POC pCO2 (35-46) mmHg POC pO2 74 L (80-95) mmHg ABG pH (Temp Correct) 7.275 L (7.35-7.45) POC ABG O2 Sat (90-95) % Sodium (136-145) mmol/L Carbon Dioxide (21-32) mmol/L POC Total CO2 20 L (24-31) mmol/L Glucose (70-99(Fasting)) mg/dl POC Glucose (70-99) mg/dl POC Glucose (other) (70-99) mg/dl Lactate 2.3 H* (0.4-2.0) mmol/L Calcium (8.6-10.3) mg/dl Phosphorus (2.5-4.9) mg/dl AST (13-39) U/L ALT (7-52) U/L Troponin I High Sens 115.1 H* D (0-14) pg/ml TSH (0.300-4.500) uIu/ml Urine Appearance (Clear) Urine pH (4.5-7.5) Urine Protein (Negative) Urine Glucose (UA) (Negative) Urine Blood (Negative) Urine WBC (Auto) (0-5) /hpf Urine RBC (Auto) (0-4) /hpf U Hyaline Cast (Auto) (0-5) /lpf U Epithel Cells (Auto) (0-5) /lpf Coronavirus HKU1 (PCR) DETECTED A* (NotDetected) 03/15/23 03/15/23 03/15/23 Range/Units 00:47 04:39 04:48 WBC 13.52 H (4.8-10.8) K/ul Hgb (12.0-16.0) g/dl POC Hgb (12.0-16.0) g/dl POC Hct (37-47) % MCV 79.4 L (80.0-100.0) fL MCH 24.6 L (25.0-34.0) pg MCHC 31.0 L (32.0-36.0) g/dL RDW Coeff of Dionicio 14.6 H (11.5-14.5) % Neut # (Auto) 12.40 H (1.40-6.50) K/uL Lymph # (Auto) 0.68 L (1.20-3.40) K/uL POC pH 7.33 L (7.35-7.45) POC pCO2 (35-46) mmHg POC pO2 (80-95) mmHg ABG pH (Temp Correct) 7.335 L (7.35-7.45) POC ABG O2 Sat 96.0 H (90-95) % Sodium 135 L (136-145) mmol/L Carbon Dioxide 20 L (21-32) mmol/L POC Total CO2 20 L (24-31) mmol/L Glucose 158 H (70-99(Fasting)) mg/dl POC Glucose 123 H (70-99) mg/dl POC Glucose (other) (70-99) mg/dl Lactate (0.4-2.0) mmol/L Calcium 8.5 L (8.6-10.3) mg/dl Phosphorus 1.8 L (2.5-4.9) mg/dl AST 62 H (13-39) U/L ALT 72 H (7-52) U/L Troponin I High Sens 142.8 H* D (0-14) pg/ml TSH (0.300-4.500) uIu/ml Urine Appearance (Clear) Urine pH (4.5-7.5) Urine Protein (Negative) Urine Glucose (UA) (Negative) Urine Blood (Negative) Urine WBC (Auto) (0-5) /hpf Urine RBC (Auto) (0-4) /hpf U Hyaline Cast (Auto) (0-5) /lpf U Epithel Cells (Auto) (0-5) /lpf Coronavirus HKU1 (PCR) (NotDetected) 03/15/23 03/15/23 03/15/23 Range/Units 09:54 10:24 11:44 WBC (4.8-10.8) K/ul Hgb 11.7 L (12.0-16.0) g/dl POC Hgb 11.9 L (12.0-16.0) g/dl POC Hct 35 L (37-47) % MCV 78.4 L (80.0-100.0) fL MCH 24.7 L (25.0-34.0) pg MCHC 31.5 L (32.0-36.0) g/dL RDW Coeff of Dionicio 14.6 H (11.5-14.5) % Neut # (Auto) (1.40-6.50) K/uL Lymph # (Auto) (1.20-3.40) K/uL POC pH 7.32 L (7.35-7.45) POC pCO2 (35-46) mmHg POC pO2 58 L (80-95) mmHg ABG pH (Temp Correct) 7.319 L (7.35-7.45) POC ABG O2 Sat 88.0 L (90-95) % Sodium (136-145) mmol/L Carbon Dioxide (21-32) mmol/L POC Total CO2 21 L (24-31) mmol/L Glucose (70-99(Fasting)) mg/dl POC Glucose 126 H (70-99) mg/dl POC Glucose (other) (70-99) mg/dl Lactate (0.4-2.0) mmol/L Calcium (8.6-10.3) mg/dl Phosphorus (2.5-4.9) mg/dl AST (13-39) U/L ALT (7-52) U/L Troponin I High Sens 93.3 H* D (0-14) pg/ml TSH (0.300-4.500) uIu/ml Urine Appearance (Clear) Urine pH (4.5-7.5) Urine Protein (Negative) Urine Glucose (UA) (Negative) Urine Blood (Negative) Urine WBC (Auto) (0-5) /hpf Urine RBC (Auto) (0-4) /hpf U Hyaline Cast (Auto) (0-5) /lpf U Epithel Cells (Auto) (0-5) /lpf Coronavirus HKU1 (PCR) (NotDetected) Diagnostic Findings Head CT 03/14/23 17:54 Exam(s): CT HEAD Without Contrast EXAM: CT Head Without Intravenous Contrast CLINICAL HISTORY: Reason for exam: AMS. TECHNIQUE: Axial computed tomography images of the head/brain without intravenous contrast. CTDI is 73.11 mGy and DLP is 1092.72 mGy-cm. Automated exposure control was utilized for the study. A dose lowering technique was utilized adhering to the principles of ALARA. COMPARISON: None FINDINGS: Brain: No acute infarct or hemorrhage. No extra-axial fluid collection. No mass effect or midline shift. Ventricles and sulci: Normal. No ventriculomegaly or intraventricular hemorrhage. Bones: Normal. No bony lesion or acute fracture. Subcutaneous tissues: Normal. Sinuses: Fluid in the nasal cavity and nasopharynx. Mild mucosal thickening in the left maxillary sinus, right sphenoid sinus, ethmoid air cells, and left frontal sinus. Mastoid air cells: Normal. Orbits: Grossly unremarkable. IMPRESSION: No acute intracranial abnormality. If there is persistent concern for an acute process, consider further evaluation with MRI. Cervical Spine CT 03/14/23 18:31 Exam(s): CT C SPINE EXAM: CT Cervical Spine Without Intravenous Contrast CLINICAL HISTORY: Reason for exam: fall. TECHNIQUE: Axial computed tomography images of the cervical spine without intravenous contrast. CTDI is 33.87 mGy and DLP is 715.88 mGy-cm. Automated exposure control was utilized for the study. A dose lowering technique was utilized adhering to the principles of ALARA. COMPARISON: None FINDINGS: Bones: Mild reversal of the normal cervical lordosis. No acute fracture or bony lesion. Disc spaces: No subluxation. Mild degenerative changes of the spine. Soft tissues: Normal. Other: Mild paranasal sinus disease. Patchy densities in the upper lungs could represent atelectasis. Endotracheal tube terminates in the upper/mid thoracic trachea. IMPRESSION: No acute traumatic abnormality. Head CTA 03/14/23 19:52 Exam(s): CTA HEAD With Contrast IV Amt: 115 ml optiray 320 EXAM: CT Angiography Head With Intravenous Contrast CLINICAL HISTORY: Reason for exam: confusion. TECHNIQUE: Axial computed tomographic angiography images of the head with intravenous contrast. CTDI is 33.87 mGy and DLP is 715.88 mGy-cm. Automated exposure control was utilized for the study. A dose lowering technique was utilized adhering to the principles of ALARA. MIP reconstructed images were created and reviewed. CONTRAST: Patient received 115 ml optiray 320 of IV contrast COMPARISON: None FINDINGS: Right internal carotid artery: No acute findings. Intracranial segment is patent with no significant stenosis. No aneurysm. Right anterior cerebral artery: Unremarkable. No occlusion or significant stenosis. No aneurysm. Right middle cerebral artery: Unremarkable. No occlusion or significant stenosis. No aneurysm. Right posterior cerebral artery: Unremarkable. No occlusion or significant stenosis. No aneurysm. Right vertebral artery: Unremarkable as visualized. Left internal carotid artery: No acute findings. Intracranial segment is patent with no significant stenosis. No aneurysm. Left anterior cerebral artery: Unremarkable. No occlusion or significant stenosis. No aneurysm. Left middle cerebral artery: Unremarkable. No occlusion or significant stenosis. No aneurysm. Left posterior cerebral artery: Unremarkable. No occlusion or significant stenosis. No aneurysm. Left vertebral artery: Unremarkable as visualized. Basilar artery: Unremarkable. No occlusion or significant stenosis. No aneurysm. Other: Mild mucosal thickening in the maxillary sinuses. Polyp versus venous retention cyst in the right maxillary sinus. Small amount of fluid or mucosal thickening in the sphenoid sinuses. Mild mucosal thickening in the ethmoid air cells and left frontal sinus. IMPRESSION: No significant stenosis, occlusion, or aneurysm in the central or large intracranial arteries. Electronically signed by: Mecca Tenorio M.D. 03/14/23 20:36 PM Neck CTA 03/14/23 19:52 Exam(s): CTA NECK With Contrast IV Amt: 115 ml optiray 320 EXAM: CT Angiography Neck With Intravenous Contrast CLINICAL HISTORY: Reason for exam: confusion. TECHNIQUE: Routine carotid CT angiography protocol was performed with intravenous contrast. NASCET criteria using the distal ICAs for comparison were used for evaluation of stenoses. CTDI is 21.14 mGy and DLP is 782.95 mGy-cm. Automated exposure control was utilized for the study. A dose lowering technique was utilized adhering to the principles of ALARA. MIP reconstructed images were created and reviewed. CONTRAST: Patient received 115 ml optiray 320 of IV contrast COMPARISON: None FINDINGS: VASCULATURE: Right common carotid artery: Unremarkable. No occlusion or significant stenosis. No dissection. Right internal carotid artery: Unremarkable. Extracranial segment is patent with no occlusion or significant stenosis. No dissection. Right external carotid artery: Unremarkable. No occlusion. Right vertebral artery: Unremarkable. No occlusion or significant stenosis. No dissection. Left common carotid artery: Unremarkable. No occlusion or significant stenosis. No dissection. Left internal carotid artery: Unremarkable. Extracranial segment is patent with no occlusion or significant stenosis. No dissection. Left external carotid artery: Unremarkable. No occlusion. Left vertebral artery: Unremarkable. No occlusion or significant stenosis. No dissection. NECK: Bones/joints: Unremarkable. No acute fracture. Soft tissues: Unremarkable. Lymph nodes: Mildly prominent cervical lymph nodes are nonspecific. Lung apices: Densities in the lung apices may represent atelectasis. CAROTID STENOSIS REFERENCE USING NASCET CRITERIA: % ICA stenosis = (1 - narrowest ICA diameter/diameter of distal cervical ICA) x 100. Mild - <50% stenosis. Moderate - 50-69% stenosis. Severe - 70-94% stenosis. Near occlusion - 95-99% stenosis. Occluded - 100% stenosis. IMPRESSION: No significant stenosis, occlusion, or dissection. Mildly prominent cervical lymph nodes are nonspecific. Electronically signed by: Mecca Tenorio M.D. 03/14/23 20:33 PM Brain MRI 03/14/23 20:45 Exam(s): MRI HEAD W/WO Contrast IV Amt: 20.9CC GADAVIST EXAM: MR Head Without and With Intravenous Contrast CLINICAL HISTORY: Reason for exam: cva?. TECHNIQUE: Magnetic resonance images of the head/brain without and with intravenous contrast in multiple planes. CONTRAST: Patient received 20.9CC GADAVIST of IV contrast COMPARISON: Prior CT head, CTA head and neck 03/14/2023 FINDINGS: Brain: Unremarkable. No mass. No hemorrhage. No acute infarct. Ventricles: Unremarkable. No ventriculomegaly. Bones/joints: Unremarkable. No acute fracture. Sinuses: Mild paranasal sinus mucosal thickening in most of the paranasal sinuses. No fluid levels. Right maxillary sinus mucous retention cyst or polyp. Mastoid air cells: Unremarkable as visualized. No mastoid effusion. Orbits: Unremarkable as visualized. IMPRESSION: No acute findings in the head/brain. Electronically signed by: Kacey Mondragon M.D. 03/15/23 00:28 AM Medications Administered Home Medications Medication Instructions Recorded Confirmed Last Taken lorazepam 0.5 mg tablet 0.5 mg PO DAILY PRN Anxiety 10/04/20 03/14/23 Unknown Oxygen Home #1 ea 10/09/20 01/23/23 Unknown hydroxychloroquine 200 mg tablet 400 mg PO QAM 12/19/22 03/14/23 12/25/22 (Plaquenil) montelukast 10 mg tablet 10 mg PO QAM 12/19/22 03/14/23 12/25/22 (Singulair) venlafaxine 75 mg capsule,extended 75 mg PO QAM 01/23/23 03/14/23 Unknown release 24 hr albuterol sulfate 90 mcg/actuation 2 puff inhalation Q4H PRN Wheezing 03/14/23 03/14/23 Unknown aerosol inhaler cyanocobalamin (vitamin B-12) 1,000 mcg sublingual QAM 03/14/23 03/14/23 Unknown 1,000 mcg sublingual tablet omeprazole 40 mg capsule,delayed 40 mg PO DAILYBB 03/14/23 03/14/23 Unknown release Active Medications Generic Name Dose Route Start Last Admin Trade Name Freq PRN Reason Stop Dose Admin Heparin Sodium/Dextrose 25,000 units in 500 mls @ 0 mls/hr 03/14/23 20:15 03/15/23 08:23 Heparin Sodium/Dextrose IV 04/13/23 20:14 0 units/hr .Q0M WILMER 0 mls/hr Titration Protocol 0 UNITS/HR Ceftriaxone Sodium 2,000 mg/ 50 mls @ 100 mls/hr 03/15/23 00:00 03/15/23 12:21 Dextrose IV 03/25/23 00:00 Infused Q12H WILMER Infusion Protocol Pantoprazole Sodium 40 mg/ 10 mls @ 5 mls/min 03/15/23 11:00 03/15/23 11:52 Syringe IV 04/14/23 10:59 5 mls/min DAILY@1100 WILMER Administration Parenteral Electrolytes 1,000 mls @ 115 mls/hr 03/15/23 00:15 03/15/23 07:13 Plasma-Lyte A Ph 7.4 IV 04/14/23 00:14 115 mls/hr .[id number] WILMER Administration Miscellaneous 1 each 03/15/23 07:30 03/15/23 11:51 Icu Protocol For Hyperglycemia N/A 03/17/23 07:29 Not Given ACHS WILMER
[2023-03-15] MEDS: VANCOMYCIN HCL 1,000 MG in SODIUM CHLORIDE 0.9% 250 ML IV SCH ×2 (15:34→23:29)
--- NOTE | 2023-03-15 16:04 | Electrocardiogram Report ---
Test Reason : Blood Pressure : / mmHG Vent. Rate : 081 BPM Atrial Rate : 081 BPM P-R Int : 174 ms QRS Dur : 112 ms QT Int : 440 ms P-R-T Axes : 062 -46 009 degrees QTc Int : 511 ms Normal sinus rhythm Left anterior fascicular block Moderate voltage criteria for LVH, may be normal variant Poor R wave progression, consider anterior TN vs. lead placement vs. LVH Nonspecific ST abnormality Prolonged QT Abnormal ECG When compared with ECG of 15-MAR-2023 05:43, Sinus rhythm has replaced Atrial fibrillation Confirmed by Wang Fontanez ([id number]) on 03/15/2023 4:04:24 PM Referred By: REFERRED SELF Confirmed By:Seth Fontanez
[2023-03-15] MEDS ORDERED: MIDAZOLAM HCL 1 MG/ML 2ML VIAL ONE (18:35)
[2023-03-15] MEDS ORDERED: Nursing to Pharmacy Communication SCH (20:30)
[2023-03-15 23:18] LABS: ANTI-Xa, UFH(UnfractionatedHep 0.37 IU/ml (0.3-0.7)
[2023-03-16] MEDS: HEPARIN SODIUM/DEXTROSE 25,000 UNITS/500 ML BAG IV SCH (02:03)
[2023-03-16 04:50] LABS: Basophils # (auto) 0.03 K/uL (0.00-0.20); Basophils % (auto) 0.3 %; Hematocrit (blood only) 34.6 % (37.0-47.0); Hemoglobin 10.8 g/dl (12.0-16.0); Immature Granulocytes # (auto) 0.07 K/uL (0.01-0.20); Immature Granulocytes % (auto) 0.6 %; Lymphocytes # (auto) 1.67 K/uL (1.20-3.40); Mean Corpuscular Hemoglobin 24.8 pg (25.0-34.0); Mean Corpuscular Hgb Conc 31.2 g/dL (32.0-36.0); Mean Corpuscular Volume 79.4 fL (80.0-100.0); Mean Platelet Volume 10.3 fL (9.4-12.4); Monocytes # (auto) 0.86 K/uL (0.11-0.59); Monocytes % (auto) 7.7 %; Neutrophils # (auto) 8.54 K/uL (1.40-6.50); Neutrophils % (auto) 76.4 %; Platelet Count 244 K/uL (130-400); RDW Standard Deviation 43.5 fL (36.4-46.3); Red Blood Count 4.36 M/uL (4.20-5.40); White Blood Count 11.17 K/ul (4.8-10.8)
[2023-03-16 05:08] LABS: ANTI-Xa, UFH(UnfractionatedHep 0.42 IU/ml (0.3-0.7); Albumin Level 3.5 gm/dl (3.4-5.0); BUN Creatinine Ratio 14.6 (10-20); Bilirubin Direct 0.1 mg/dl (0-0.2); Bilirubin,Total 0.5 mg/dl (0.2-1.0); Chol HDL Ratio 2.1 (0-5); Creatinine Clr Calc Pharmacy 136.7 ml/min; Est GFR (African American) 81.1 ml/min; Est GFR (Non-African American) 69.9 ml/min; Magnesium 2.3 mg/dl (1.7-2.4); Phosphorus 3.4 mg/dl (2.5-4.9); Potassium 3.8 mmol/L (3.5-5.1); Total Protein 6.4 gm/dl (6.0-8.3)
[2023-03-16] MEDS ORDERED: LORazepam 0.5 MG TAB PO PRN (06:53)
[2023-03-16] MEDS ORDERED: ALBUTEROL HFA 8 GM INHALER INH PRN (06:53)
--- NOTE | 2023-03-16 07:06 | Hospitalist Progress Note ---
Date of Service March 16, 2023 Assessment & Plan (1) Respiratory failure requiring intubation: Plan: Ms Sol is a 47-year-old woman with past medical history significant for GERD, morbid obesity, CKD stage III, sleep apnea, generalized osteoarthritis, vitamin B12 deficiency, anxiety, lymphedema who presented to [facility] with unresponsive episode on 03/14. Patient reportedly suddenly collapsed, witnessed by daughter and grandchildren. EMS reported patient to be cyanotic on scene and CPR initiated prehospital. Airway access was not secured prehospital; however, upon arrival to ED she was intubated and mechanically ventilated. Rhythm upon arrival was atrial fibrillation with RVR. Eitology of collapse has yet to be elucidated. Urine and blood cultures with no growth todate, procal WNL. No gap. Acidotic on abg initially with corresponding lactate to 4 TSH 8.626 Troponin uptrending to 142 in the setting of atrial fibrillation and arrest, with subsequent down trend Mild transaminitis with no obstructive characteristics CTA mildy prominent cervical lymph nodes, densities in lung apices; CXR enlarged heart, vascular congestion Hepatomegaly -Fatty liver present 01/23 #Acute encephalopathy -Family reports increased confusion from baseline, concern for anoxic injury No notable CO2 retention noted Plan for repeat MRI in am to eval for signs of anoxic injury #Microcytic anemia -Anemia labs, iron, b12, folate in am #Acute hypoxic, hypercarbic respiratory failure, unclear etiology, s/p mechanical ventilation [extubated 03/15] #Sudden collapse #Seizure like activity -Reportedly shaking episode noted after collapse -Currently s/p intubation upon arrival to ED on 03/14 Initial exams without response to painful/verbal stimuli CT head, CTA head and neck, cervical spine CT, CTA chest, CT abdomen pelvis are unremarkable Labs not suggestive of clear source outside of except for mild transaminitis and elevated lactic acid. Extubated 03/15/2023, Transferred from ICU status on 03/15 Telestroke contacted 03/14: no AED at this time, if EEG with focal discharges consider LP, if concern for recurrent seizure may warrant LTM EEG -No concerns for seizure -EEG pending Continue broad spectrum antibiotics, covering encephalitis/meningitis given reported history on admission initially: CTX, Vanc, Acyclovir started 03/14 -Now to CTX/Vanc -Infectious work up NGTD, will likely discontinue abx in am and monitor for 24 hours #QTc Prolongation 588 03/15, but improved to baseline 486 -CTM #Atrial Fibrillation with rapid ventricular rate *improved #Type II Myocardial injury in setting of hypoxic, tachycardia, sudden collapse/CPR Multiple contributing factors to troponin elevation EKG this am with criteria for LVH, abnormal overall, notably poor R wave progression ([place] or related to LVH?) Continue to trend troponin to peak ECHO ordered Converted from a fib, cardizem discontinued Cardiology consult, appreciate recommendations -Metoprolol 25mg BID -Zio patch at d/c -low [id number], no indication for correction AC unless a fib returns -Monitor on tele, DC heparin, transition to lovenox 40mg bid 2/2 habitus -Lipid panel LDL 48, total 122 #Hepatic steatosis #Transaminitis -Improving, likely multifactorial, morbid obesity/a fib rvr/acute illness, no RUQ concerns -Trend CMP #Leukocytosis potentially reactive 2/2 CPR/hypoxia/multifactorial Infectious work up pending Continue broad spectrum antibiotics -Plan to discontinue in am given no growth 48 hours, monitor for 24 hours post #Hypophosphatemia *resolved iso respiratory failure Replace as needed #Tumid Lupus Erythematosus -Follows Dr Bolaños, reported mild, followed Derm historically as manifestation predominately cutaneous -Home regimen: hydroxychloroquine 400mg qam #Obstructive sleep apnea/Obesity Hypoventilation syndrome #Morbid obesity -BMI 69.8, home cpap Continue home CPAP, consider overnight pulse ox for bipap needs? #Chronic lymphedema Participates with lymphedema therapy, compression stockings #CKD stage III, stable CR 1.2 and improving, baseline 0.8-0.9 At baseline #Abnormal TFTS -Should repeat in 6-8 weeks with PCP Diet: as tolerated DVT: lovenox HOB 30degrees Exubated Gooden catheter in place 03/14 Deescalte abx contingent upon infectious work up Disposition PCU Full code Admission and Anticipated Discharge Date Admission Date: March 14, 2023 Subjective NAEO, much improved on exam today Notably short term memory issues, forgetful of conversations from am as well as even discussion within previous minutes Family noted patient is baseline forgetful, but this is a bit more so than usual Patient states she feels "great", she denies chest pain, palpitations, headache/neck rigidity, fevers chills, or other concerns Daughter spent time recalling events leading up to patients collapse. She states patient was in usual state of health, no prodromal symptoms, no reports of chest pain--patient walked from parking lot to inside store, sat down to gather self from walk (usual behavior) but then collapsed. She reports rates to 160s initially, then pulseless with cyanosis Physical Exam Constitutional: WD/WN, vitals as above Eyes: PERRL, conjunctivae normal, anicteric sclerae Respiratory: normal respiratory effort, lungs clear to auscultation Cardiovascular: RRR Musculoskeletal: diffuse lymphedema Neurologic: no focal deficits, confusion, short term memory delay Results & Data Results & Data Vital Signs (Past 12 Hours) Vital Signs Temp Pulse Pulse Resp BP BP Pulse Ox 03/16/23 06:00 37.1 C 76 14 100 03/16/23 05:00 37.2 C 75 16 98 03/16/23 04:50 37.2 C 75 18 95 03/16/23 04:50 160/98 H 03/16/23 04:00 37.3 C 74 15 97 03/16/23 03:00 37.2 C 77 14 97 03/16/23 02:56 75 14 97 03/16/23 02:00 37.3 C 77 15 97 03/16/23 01:00 37.4 C 80 17 97 03/16/23 00:45 79 03/16/23 00:00 37.5 C 79 17 96 03/15/23 23:00 37.5 C 75 15 97 03/15/23 22:47 84 19 96 03/15/23 22:38 03/15/23 22:36 37.1 C 86 19 164/88 H 97 03/15/23 22:35 164/88 H 03/15/23 22:35 37.5 C 86 22 94 03/15/23 22:00 37.5 C 88 23 97 03/15/23 21:00 37.6 C H 79 17 98 03/15/23 20:11 36.9 C 84 22 146/89 H 99 03/15/23 20:00 37.5 C 86 23 99 03/15/23 19:50 03/15/23 19:47 37.5 C 85 24 96 03/15/23 19:47 146/89 H 03/15/23 19:00 37.4 C 90 27 H 98 O2 Del Method O2 Del Method FiO2 03/16/23 06:00 03/16/23 05:00 03/16/23 04:50 03/16/23 04:50 03/16/23 04:00 03/16/23 03:00 03/16/23 02:56 03/16/23 02:00 03/16/23 01:00 03/16/23 00:45 03/16/23 00:00 03/15/23 23:00 03/15/23 22:47 21 03/15/23 22:38 CPAP 03/15/23 22:36 CPAP 03/15/23 22:35 03/15/23 22:35 03/15/23 22:00 03/15/23 21:00 03/15/23 20:11 Room Air 03/15/23 20:00 03/15/23 19:50 Room Air 03/15/23 19:47 03/15/23 19:47 03/15/23 19:00 Laboratory Results Short CBC 03/16/23 Range/Units 04:21 WBC 11.17 H (4.8-10.8) K/ul Hgb 10.8 L (12.0-16.0) g/dl Hct 34.6 L (37.0-47.0) % Plt Count 244 (130-400) K/uL BMP 03/16/23 04:21 Sodium 137 Potassium 3.8 Chloride 107 Carbon Dioxide 24 BUN 14 Creatinine 0.96 Glucose 120 H Calcium 8.0 L Liver Function 03/16/23 Range/Units 04:21 Total Bilirubin 0.5 (0.2-1.0) mg/dl Direct Bilirubin 0.1 (0-0.2) mg/dl AST 40 H (13-39) U/L ALT 57 H (7-52) U/L Alkaline Phosphatase 58 (34-104) U/L Albumin 3.5 (3.4-5.0) gm/dl Medications Administered Home Medications Medication Instructions Recorded Confirmed Last Taken lorazepam 0.5 mg tablet 0.5 mg PO DAILY PRN Anxiety 10/04/20 03/14/23 Unknown Oxygen Home #1 ea 10/09/20 01/23/23 Unknown hydroxychloroquine 200 mg tablet 400 mg PO QAM 12/19/22 03/14/23 12/25/22 (Plaquenil) montelukast 10 mg tablet 10 mg PO QAM 12/19/22 03/14/23 12/25/22 (Singulair) venlafaxine 75 mg capsule,extended 75 mg PO QAM 01/23/23 03/14/23 Unknown release 24 hr albuterol sulfate 90 mcg/actuation 2 puff inhalation Q4H PRN Wheezing 03/14/23 03/14/23 Unknown aerosol inhaler cyanocobalamin (vitamin B-12) 1,000 mcg sublingual QAM 03/14/23 03/14/23 Unknown 1,000 mcg sublingual tablet omeprazole 40 mg capsule,delayed 40 mg PO DAILYBB 03/14/23 03/14/23 Unknown release Active Medications Generic Name Dose Route Start Last Admin Trade Name Freq PRN Reason Stop Dose Admin Cyanocobalamin 1,000 mcg 03/16/23 09:00 03/16/23 08:45 Cyanocobalamin (B-12) 500 Mcg Tablet PO 04/15/23 08:59 1,000 mcg QAM WILMER Administration Enoxaparin Sodium 40 mg 03/16/23 07:00 03/16/23 08:44 Enoxaparin Inj 40 Mg/0.4 Ml Syr SQ 04/15/23 06:59 40 mg Q12H WILMER Administration Hydroxychloroquine Sulfate 400 mg 03/16/23 09:00 03/16/23 08:45 Hydroxychloroquine Sulfate 200 Mg Tab PO 04/15/23 08:59 400 mg QAM WILMER Administration Ceftriaxone Sodium 2,000 mg/ 50 mls @ 100 mls/hr 03/15/23 00:00 03/16/23 00:41 Dextrose IV 03/25/23 00:00 Infused Q12H WILMER Infusion Protocol Vancomycin HCl 1,000 mg/ 270 mls @ 200 mls/hr 03/15/23 16:00 03/16/23 10:13 Sodium Chloride IV 03/25/23 15:59 Infused Q8H WILMER Infusion Metoprolol Tartrate 25 mg 03/16/23 09:00 03/16/23 08:45 Metoprolol Tartrate 25 Mg Tab PO 04/15/23 08:59 25 mg BID WILMER Administration Pantoprazole Sodium 40 mg 03/16/23 07:30 03/16/23 08:45 Pantoprazole 40 Mg Tab PO 04/15/23 07:29 40 mg DAILYBB WILMER Administration Protocol Venlafaxine HCl 75 mg 03/16/23 09:00 03/16/23 08:45 Venlafaxine Hcl Xr 75 Mg Capxr PO 04/15/23 08:59 75 mg QAM WILMER Administration
--- NOTE | 2023-03-16 07:13 | Electrocardiogram Report ---
Test Reason : Blood Pressure : / mmHG Vent. Rate : 075 BPM Atrial Rate : 075 BPM P-R Int : 166 ms QRS Dur : 114 ms QT Int : 436 ms P-R-T Axes : 061 -41 007 degrees QTc Int : 486 ms Normal sinus rhythm Left axis deviation Minimal voltage criteria for LVH, may be normal variant Possible Anterolateral infarct , age undetermined Abnormal ECG When compared with ECG of 15-MAR-2023 11:01, Borderline criteria for Anterolateral infarct are now Present Confirmed by Wang Fontanez ([id number]) on 03/16/2023 7:12:36 AM Referred By: REFERRED SELF Confirmed By:Seth Fontanez
[2023-03-16] MEDS ORDERED: VANCOMYCIN LEVEL ONE (07:30)
[2023-03-16 07:59] LABS: Base Excess ABG 0.1 mEq/L (-9-1.8); HCO3 ABG 25 mmol/L (19-24); Oxygen Saturation ABG 97.6 % (90-95); PCO2 ABG 39 mmHg (35-46); PO2 ABG 79 mmHg (80-95); pH ABG 7.41 (7.35-7.45)
[2023-03-16 08:00] LABS: Allen Test Pos (Pos)
[2023-03-16] MEDS: ENOXAPARIN INJ 40 MG/0.4 ML SYR SQ SCH ×2 (08:44→17:48)
[2023-03-16] MEDS: VENLAFAXINE HCL XR 75 MG CAPXR PO SCH (08:45)
[2023-03-16] MEDS: PANTOprazole 40 MG TAB PO SCH (08:45)
[2023-03-16] MEDS: HYDROXYCHLOROQUINE SULFATE 200 MG TAB PO SCH (08:45)
[2023-03-16] MEDS: METOPROLOL TARTRATE 25 MG TAB PO SCH ×2 (08:45→20:02)
[2023-03-16] MEDS: CYANOCOBALAMIN (B-12) 500 MCG TABLET PO SCH (08:45)
[2023-03-16] MEDS: PLASMA-LYTE A 1,000 ML IV SCH (08:47)
[2023-03-16] MEDS: VANCOMYCIN HCL 1,000 MG in SODIUM CHLORIDE 0.9% 250 ML IV SCH ×3 (08:48→23:21)
--- NOTE | 2023-03-16 09:50 | Pharmacy Report ---
Pharmacy PK ABX Note - Date of Service March 16, 2023 - Assessment and Plan Assessment 03/16 * Level today associated with a therapeutic AUC. For now, will not dose adjust. However, will obtain early repeat level in 24 hours due to increased risk of accumulation 2nd BMI 03/15 * 47 year old F receiving ceftriaxone and vancomycin for treatment of possible meningitis. * BMI of 69.2 kg/m2 - will need to be more aggressive with vancomycin dosing initially to ensure therapeutic levels *initially*. Therefore will target supratherapeutic AUC for now per [employer] estimate, because this is what is anticipated *at steady state*, not initially. Will therefore likely need to adjust dose ongoing to ensure steady state level does not become supratherapeutic. Frequent monitoring of levels will be indicated throughout the course of therapy Plan Vancomycin * Maintenance dose: 1000 mg IV every 8 hours * Target AUC/BRANNON of 400-600 mg/L.hr * Trough level ordered for 03/17 @ 0730 Pharmacy will continue to follow and will adjust dose/frequency as necessary. Thank you. Pharmacy has transitioned to AUC monitoring for vancomycin. AUC/BRANNON is the preferred PK/PD target and is associated with decreased risk of nephrotoxicity compared to traditional trough targets.
[2023-03-16] MEDS ORDERED: FUROSEMIDE 40 MG/4 ML VIAL IV ONE (11:47)
[2023-03-16] MEDS: cefTRIAXone SODIUM 2,000 MG in DEXTROSE 5 % MINI-B 50 ML IV SCH ×2 (12:12→23:21)
--- NOTE | 2023-03-16 17:32 | Cardiology Progress Note ---
Date of Service March 16, 2023 Assessment & Plan (1) Atrial fibrillation: Plan: In review of outside records through [employer] system there is no prior documented AF; although given her body habitus and presumed sleep apnea she is at risk for having AF. ?it is still difficult to determine etiology of pt's acute event-it is hard to believe but could be very reasonable that she was in AF with RVR and became hypotensive and thereby passed out? I am not sure about the reported fast HR pulse and then no pulse felt by the daughter? but maybe she was so hypotensive that you could not palpitate a pulse? ?Could she have had a ventricular rhythm that broke to AF? this is always a possibility but not very common I am still ok with holding off on anti-coagulation; her [id number] is low so think we can avoid DOAC for now; but if she has recurrent AF during the hospitalization then I would recommend starting a DOAC continue metoprolol tartrate 25mg BID would possibly more consider linq insertion for terminal manager monitoring prior to discharge-i briefly brought this up to the pt and family today-discussion to continue (2) Prolonged QT interval: Plan: Pt's QTc is back to baseline on today's ECG (486ms) she is on on QT prolonged agents at home (Plaquenil and venlafaxine) avoid QT prolonging agents (3) Syncope: Plan: still perplexed on the etiology of the acute event given the new information from the daughter's description of the event it could be cardiac arrhythmia in nature with hypotension-i am still not convinced it was a ventricular arrhythmia but i do think it is reasonable for pt to have a linq prior to discharge (4) Encephalopathy: Plan: pt is becoming more oriented just not much in a memory of the recent events repeat MRI possibly tomorrow (5) Respiratory failure requiring intubation: Plan: ?unclear etiology? got a dose of IV diuresis today and doing well (6) Metabolic acidosis: (7) Respiratory acidosis: (8) Lactic acidosis: (9) Elevated liver enzymes: (10) Elevated alpha fetoprotein: (11) Coronavirus infection: Plan 47y/o F PMH morbid obesity, depression, anxiety, LAFB, GERD (recently started on omprezole). In review of out patient PCP notes through the [employer] EMR-pt was seeing PCP for some back pain, knee pain and GERD. She was also in the ER recently for back pain. She was admitted with acute respiratory failure requiring intubation and was in AF with RVR at the time. She has converted to SR and is maintaining SR-again per my review of records no prior documented AF. Pt is confused post extubation and unable to recollect events leading to admission. after getting more details around the event arrhythmia could be one of the triggers-but I think it was not a ventricular arrhythmia-but I would recommend a loop recorder prior to discharge Avoid QT prolonging agents continue metoprolol ASA no DOAC for now but if we see more AF then would start ischemic evaluation i think could be done as an outpatient at this juncture If pt is not on CPAP at home she will need an outpt sleep study and probably would benefit from it diuresis as needed to assess daily discussed with the hospitalist today in person-she agreed with my recommendations Admission and Anticipated Discharge Date Admission Date: March 14, 2023 Subjective Pt seen earlier today She is more alert and oriented today family at the bedside pt does not recollect any of the events or the time before as well; she does remember earlier in the week out in the snow with grandchildren I spoke to the hospitalist today who got more of a history from the patient's daughter about the event Pt was walking from the parking lot to the [employer] store she typically has to rest; she was sitting at a bench when her daughter looked over and she was slumped over-the daughter reports at first feeling rapid pulse and then no pulse-by the time EMS arrived there was "no shock advised" Review of Systems Review of Systems: Unobtainable due to cognitive status Physical Exam Physical Exam: oriented to name and place today NC/AT sclera non-icteric, EOMI Supple No JVD Nrl S1/S2, No murmur CTA b/l soft nt/nd, obese + LE swelling b/l Results & Data Vital Signs (Past 12 Hours) Vital Signs Temp Pulse Resp BP Pulse Ox O2 Del Method 03/16/23 12:01 37.4 C 80 26 H 137/70 96 03/16/23 10:50 75 03/16/23 08:00 37.2 C 87 21 134/62 100 Room Air 03/16/23 06:00 37.1 C 76 14 100 Laboratory Results Cardiac Enzymes 03/15/23 03/16/23 Range/Units 17:22 04:21 AST 40 H (13-39) U/L Troponin I High Sens 69.0 H* D (0-14) pg/ml Lipids 03/16/23 Range/Units 04:21 Triglycerides 73 (0-150) mg/dl Cholesterol 122 (0-200) mg/dl HDL Cholesterol 59 mg/dl Cholesterol/HDL Ratio 2.1 (0-5) CBC 03/16/23 Range/Units 04:21 WBC 11.17 H (4.8-10.8) K/ul RBC 4.36 (4.20-5.40) M/uL Hgb 10.8 L (12.0-16.0) g/dl Hct 34.6 L (37.0-47.0) % Plt Count 244 (130-400) K/uL Neut # (Auto) 8.54 H (1.40-6.50) K/uL Lymph # (Auto) 1.67 (1.20-3.40) K/uL [place] # (Auto) 0.86 H (0.11-0.59) K/uL Eos # (Auto) 0.00 (0.00-0.50) K/uL Baso # (Auto) 0.03 (0.00-0.20) K/uL Comprehensive Metabolic Panel 03/16/23 Range/Units 04:21 Sodium 137 (136-145) mmol/L Potassium 3.8 (3.5-5.1) mmol/L Chloride 107 (98-107) mmol/L Carbon Dioxide 24 (21-32) mmol/L BUN 14 (6-23) mg/dl Creatinine 0.96 (0.6-1.2) mg/dl Glucose 120 H (70-99(Fasting)) mg/dl Calcium 8.0 L (8.6-10.3) mg/dl Direct Bilirubin 0.1 (0-0.2) mg/dl AST 40 H (13-39) U/L ALT 57 H (7-52) U/L Alkaline Phosphatase 58 (34-104) U/L Total Protein 6.4 (6.0-8.3) gm/dl Albumin 3.5 (3.4-5.0) gm/dl Intake and Output 03/16/23 03/16/23 03/16/23 06:59 14:59 22:59 Intake Total 1898.033 / 4631.533 2407.517 / 2407.517 Output Total 565 / 2415 700 / 700 Balance 1333.033 / 2216.533 1707.517 / 1707.517 Intake: IV 1898.033 / 4631.533 1907.517 / 1907.517 Heparin Sodium/Dextrose 25,000 669.533 / 845.533 286.6 / 286.6 units In 500 ml @ 2,200 UNITS/ HR 44 mls/hr IV .[id number] [facility] Rx #:[id number] Plasma-Lyte A 1,000 ml @ 115 908.5 / 2622.00 1300.917 / 1300.917 mls/hr IV .[id number] [facility] Rx#: [id number] Vancomycin HCl 1,000 mg In 270 / 540 270 / 270 Sodium Chloride 0.9% 250 ml @ 200 mls/hr IV Q8H [facility] Rx#: [id number] cefTRIAXone SODIUM 2,000 mg In 50 / 100 50 / 50 Dextrose 5 % Mini-B 50 ml @ 100 mls/hr IV Q12H [facility] Rx#: [id number] Oral 500 / 500 Output: Urine Amount (Catheter) 565 / 2415 700 / 700 Temp Sensing Gooden 565 / 2415 700 / 700 Other: Weight 209.5 kg Weight Measurement Method Built in [facility] Medications Administered Current Inpatient Medications Albuterol (Albuterol Hfa 8 Gm Inhaler) 2 puffs INH Q4H PRN PRN Reason: Wheezing Stop: 04/15/23 06:52 Cyanocobalamin (Cyanocobalamin (B-12) 500 Mcg Tablet) 1,000 mcg PO QAM [facility] Stop: 04/15/23 08:59 Last Admin: 03/16/23 08:45 Dose: 1,000 mcg Enoxaparin Sodium (Enoxaparin Inj 40 Mg/0.4 Ml Syr) 40 mg SQ Q12H [facility] Stop: 04/15/23 06:59 Last Admin: 03/16/23 08:44 Dose: 40 mg Hydroxychloroquine Sulfate (Hydroxychloroquine Sulfate 200 Mg Tab) 400 mg PO QAM [facility] Stop: 04/15/23 08:59 Last Admin: 03/16/23 08:45 Dose: 400 mg Ceftriaxone Sodium 2,000 mg/ (Dextrose) 50 mls @ 100 mls/hr IV Q12H [facility]; P rotocol Stop: 03/25/23 00:00 Last Infusion: 03/16/23 12:44 Dose: Infused Vancomycin HCl 1,000 mg/ (Sodium Chloride) 270 mls @ 200 mls/hr IV Q8H [facility] Stop: 03/25/23 15:59 Last Infusion: 03/16/23 10:13 Dose: Infused Lorazepam (Lorazepam 0.5 Mg Tab) 0.5 mg PO DAILY PRN PRN Reason: Anxiety Stop: 04/15/23 06:52 Metoprolol Tartrate (Metoprolol Tartrate 25 Mg Tab) 25 mg PO BID [facility] Stop: 04/15/23 08:59 Last Admin: 03/16/23 08:45 Dose: 25 mg Miscellaneous Information (Vancomycin Consult Active) 1 each N/A UD PRN PRN Reason: Consult Stop: 04/13/23 22:43 Pantoprazole Sodium (Pantoprazole 40 Mg Tab) 40 mg PO DAILYBB [facility]; Protocol Stop: 04/15/23 07:29 Last Admin: 03/16/23 08:45 Dose: 40 mg Venlafaxine HCl (Venlafaxine Hcl Xr 75 Mg Capxr) [facility]: 04/15/23 08:59 Last Admin: 03/16/23 08:45 Dose: 75 mg
--- NOTE | 2023-03-17 00:55 | Magnetic Resonance Report ---
Exam(s): MRI HEAD Without Contrast EXAM: MR Head Without Intravenous Contrast CLINICAL HISTORY: Reason for exam: c/f anoxic injury. TECHNIQUE: Magnetic resonance images of the head/brain without intravenous contrast in multiple planes. COMPARISON: MRI dated 03/14/2023, CTA head and neck dated 03/14/2023, Head CT dated 03/14/2023 FINDINGS: Brain: Unremarkable. No mass. No hemorrhage. No acute infarct. Ventricles: Unremarkable. No ventriculomegaly. Bones/joints: Unremarkable. No acute fracture. Sinuses: Right maxillary sinus mucous retention cyst or polyp. Mild paranasal sinus mucosal thickening. No fluid levels. No acute sinusitis. Mastoid air cells: Unremarkable as visualized. No mastoid effusion. Orbits: Unremarkable as visualized. IMPRESSION: No evidence of acute intracranial abnormality. Electronically signed by: Kacey Mondragon M.D. 03/17/23 00:54 AM
[2023-03-17 04:22] LABS: Basophils # (auto) 0.03 K/uL (0.00-0.20); Basophils % (auto) 0.4 %; Eosinophils # (auto) 0.05 K/uL (0.00-0.50); Eosinophils % (auto) 0.6 %; Hematocrit (blood only) 33.5 % (37.0-47.0); Hemoglobin 10.8 g/dl (12.0-16.0); Immature Granulocytes # (auto) 0.04 K/uL (0.01-0.20); Immature Granulocytes % (auto) 0.5 %; Lymphocytes # (auto) 1.83 K/uL (1.20-3.40); Lymphocytes % (auto) 22.2 %; Mean Corpuscular Hemoglobin 25.1 pg (25.0-34.0); Mean Corpuscular Hgb Conc 32.2 g/dL (32.0-36.0); Mean Corpuscular Volume 77.9 fL (80.0-100.0); Mean Platelet Volume 10.1 fL (9.4-12.4); Monocytes # (auto) 0.78 K/uL (0.11-0.59); Monocytes % (auto) 9.5 %; Neutrophils % (auto) 66.8 %; Platelet Count 236 K/uL (130-400); RDW Coefficient of Variation 15.1 % (11.5-14.5); RDW Standard Deviation 42.8 fL (36.4-46.3); White Blood Count 8.23 K/ul (4.8-10.8)
[2023-03-17 04:36] LABS: Albumin Globulin Ratio 1.2 (0.9-2); Albumin Level 3.5 gm/dl (3.4-5.0); Bilirubin Direct 0.1 mg/dl (0-0.2); Bilirubin,Total 0.5 mg/dl (0.2-1.0); Calcium 8.7 mg/dl (8.6-10.3); Creatinine Clr Calc Pharmacy 122.8 ml/min; Est GFR (African American) 70.3 ml/min; Est GFR (Non-African American) 60.7 ml/min; Globulin 2.9 gm/dl (2.5-4.0); Magnesium 2.1 mg/dl (1.7-2.4); Phosphorus 3.4 mg/dl (2.5-4.9); Potassium 3.8 mmol/L (3.5-5.1); Total Protein 6.4 gm/dl (6.0-8.3)
[2023-03-17] MEDS: PANTOprazole 40 MG TAB PO SCH (06:15)
[2023-03-17 06:21] LABS: Allen Test Pos (Pos); Base Excess ABG 1.7 mEq/L (-9-1.8); HCO3 ABG 27 mmol/L (19-24); Oxygen Saturation ABG 97.4 % (90-95); PCO2 ABG 42 mmHg (35-46); PO2 ABG 83 mmHg (80-95); pH ABG 7.41 (7.35-7.45)
[2023-03-17 07:20] LABS: Estimated Average Glucose 105 mg/dl; Hemoglobin A1C 5.3 % (4.5-5.6)
[2023-03-17] MEDS ORDERED: VANCOMYCIN LEVEL ONE (07:30)
--- NOTE | 2023-03-17 07:32 | Electroencephalogram ---
EEG Procedure Note Date of Service March 16, 2023 Start / End Times Start Time: 08:31 End Time: 08:51 Referring Physician Isreal Garcia MD History A 47 year old female with seizures and anoxic brain injury. EEG performed for evaluation of epileptiform activity. Home Medication List Medication Instructions Recorded Confirmed Type lorazepam 0.5 mg tablet 0.5 mg PO DAILY PRN Anxiety 10/04/20 03/14/23 History Oxygen Home #1 ea 10/09/20 01/23/23 Rx hydroxychloroquine 200 mg tablet 400 mg PO QAM 12/19/22 03/14/23 History (Plaquenil) montelukast 10 mg tablet 10 mg PO QAM 12/19/22 03/14/23 History (Singulair) venlafaxine 75 mg capsule,extended 75 mg PO QAM 01/23/23 03/14/23 History release 24 hr albuterol sulfate 90 mcg/actuation 2 puff inhalation Q4H PRN Wheezing 03/14/23 03/14/23 History aerosol inhaler cyanocobalamin (vitamin B-12) 1,000 mcg sublingual QAM 03/14/23 03/14/23 History 1,000 mcg sublingual tablet omeprazole 40 mg capsule,delayed 40 mg PO DAILYBB 03/14/23 03/14/23 History release Inpatient Medication List Cyanocobalamin (Cyanocobalamin (B-12) 500 Mcg Tablet) 1,000 mcg PO QAM [facility] Stop: 04/15/23 08:59 Last Admin: 03/16/23 08:45 Dose: 1,000 mcg Documented By: AMB Enoxaparin Sodium (Enoxaparin Inj 40 Mg/0.4 Ml Syr) 40 mg SQ Q12H [facility] Stop: 04/15/23 06:59 Last Admin: 03/16/23 17:48 Dose: 40 mg Documented By: Admin: 03/16/23 08:44 Dose: 40 mg Documented By: AMB Hydroxychloroquine Sulfate (Hydroxychloroquine Sulfate 200 Mg Tab) 400 mg PO QAM [facility] Stop: 04/15/23 08:59 Last Admin: 03/16/23 08:45 Dose: 400 mg Documented By: AMB Metoprolol Tartrate (Metoprolol Tartrate 25 Mg Tab) 25 mg PO BID [facility] Stop: 04/15/23 08:59 Last Admin: 03/16/23 20:02 Dose: 25 mg Documented By: Admin: 03/16/23 08:45 Dose: 25 mg Documented By: CAROL Pantoprazole Sodium (Pantoprazole 40 Mg Tab) 40 mg PO DAILYBB [facility]; Protocol Stop: 04/15/23 07:29 Last Admin: 03/17/23 06:15 Dose: 40 mg Documented By: Admin: 03/16/23 08:45 Dose: 40 mg Documented By: CAROL Venlafaxine HCl (Venlafaxine Hcl Xr 75 Mg Capxr) [facility] [place] Stop: 04/15/23 08:59 Last Admin: 03/16/23 08:45 Dose: 75 mg Documented By: CAROL Discontinued Medications Dexamethasone (Dexamethasone Sod Inj 4 Mg/Ml Vial) 10 mg IV NOW STA Stop: 03/14/23 22:45 Last Admin: 03/15/23 00:44 Dose: 10 mg Documented By: NENA Fentanyl Citrate (Fentanyl Bolus From Bag) 50 mcg IV Q1H PRN PRN Reason: Pain or Agitation Stop: 03/28/23 20:35 Last Admin: 03/14/23 21:16 Dose: 50 mcg Documented By: JOSHUA Co-signed By: HORACIO Furosemide (Furosemide 40 Mg/4 Ml Vial) 40 mg IV ONE ONE Stop: 03/16/23 11:48 Last Admin: 03/16/23 12:29 Dose: 40 mg Documented By: CAROL Gadobutrol (Gadobutrol 65ml Vial) 20.8 ml IV ONCE ONE Stop: 03/14/23 22:54 Last Admin: 03/14/23 22:54 Dose: 20.8 ml Documented By: [facility] Heparin Sodium/Dextrose (Heparin Iv Adult Wt-Based Standard *No* Initial Bolus Protocol) 1 each IV ONE STA; Protocol Stop: 03/14/23 19:53 Last Admin: 03/14/23 21:01 Dose: Not Given Documented By: JOSHUA Cefepime HCl (Maxipime) 2,000 mg in 20 mls @ 5 mls/min IV NOW STA; Protocol Stop: 03/14/23 17:55 Last Admin: 03/14/23 19:05 Dose: 5 mls/min Documented By: CARLOS Sodium Chloride (Nss) 1,000 mls @ 999 mls/hr IV .Q1H1M ONE Stop: 03/14/23 19:03 Last Infusion: 03/14/23 20:06 Dose: Infused Documented By: Admin: 03/14/23 19:05 Dose: 999 mls/hr Documented By: CARLOS Fentanyl Citrate (Fentanyl Citrate) 2,500 mcg in 250 mls @ 0 mls/hr IV .Q0M [facility]; Protocol Stop: 03/28/23 18:14 Last Titration: 03/15/23 09:15 Dose: Infused Documented By: YUDITH Co-signed By: CASEY Titration: 03/15/23 06:20 Dose: 0 mcg/hr, 0 mls/hr Documented By: NENA Co-signed By: ARR Titration: 03/14/23 20:41 Dose: 50 mcg/hr, 5 mls/hr Documented By: JOSHUA Co-signed By: HORACIO Admin: 03/14/23 19:05 Dose: 25 mcg/hr, 2.5 mls/hr Documented By: CARLOS Co-signed By: JOSHUA Midazolam HCl (Versed) 125 mg in 250 mls @ 2 mls/hr IV .Q96H PRN; Protocol PRN Reason: Sedation Stop: 04/13/23 18:02 Last Titration: 03/15/23 01:40 Dose: Infused Documented By: NENA Co-signed By: FRANSISCO Titration: 03/14/23 21:59 Dose: 1 mg/hr, 2 mls/hr Documented By: JOSHUA Co-signed By: HORACIO Titration: 03/14/23 19:05 Dose: 0 mg/hr, 0 mls/hr Documented By: JOSHUA Co-signed By: HORACIO Admin: 03/14/23 19:05 Dose: 1 mg/hr, 2 mls/hr Documented By: CARLOS Co-signed By: JOSHUA Sodium Chloride (Nss) 1,000 mls @ 999 mls/hr IV .Q1H1M ONE Stop: 03/14/23 19:05 Last Infusion: 03/14/23 20:17 Dose: Infused Documented By: Admin: 03/14/23 19:16 Dose: 999 mls/hr Documented By: JOSHUA Calcium Gluconate () 1,000 mg in 60 mls @ 240 mls/hr IV NOW STA Stop: 03/14/23 18:47 Last Infusion: 03/14/23 19:19 Dose: Infused Documented By: Admin: 03/14/23 19:04 Dose: 240 mls/hr Documented By: JOSHUA Diltiazem HCl 125 mg/ Dextrose 125 mls @ 5 mls/hr IV .Q24H [facility]; Protocol Stop: 04/13/23 19:44 Last Titration: 03/15/23 01:51 Dose: Infused Documented By: NENA Co-signed By: MAL Admin: 03/14/23 20:37 Dose: 5 mg/hr, 5 mls/hr Documented By: JOSHUA Co-signed By: HORACIO Heparin Sodium/Dextrose (Heparin Sodium/Dextrose) 25,000 units in 500 mls @ 44 mls/hr IV .[id number] [facility]; Protocol Stop: 04/13/23 20:14 Last Titration: 03/16/23 07:06 Dose: Infused Documented By: NENA Co-signed By: AMB Titration: 03/16/23 06:54 Dose: 2,200 units/hr, 44 mls/hr Documented By: TMG Co-signed By: AMB Admin: 03/16/23 02:03 Dose: 2,200 units/hr, 44 mls/hr Documented By: TMG Co-signed By: MNM Titration: 03/16/23 02:03 Dose: Infused Documented By: TMG Co-signed By: MNM Titration: 03/15/23 15:41 Dose: 2,200 units/hr, 44 mls/hr Documented By: YUDITH Co-signed By: CASEY Titration: 03/15/23 08:23 Dose: 0 units/hr, 0 mls/hr Documented By: YUDITH Co-signed By: CASEY Admin: 03/15/23 08:03 Dose: 2,200 units/hr, 44 mls/hr Documented By: YUDITH Co-signed By: CASEY Titration: 03/15/23 08:03 Dose: Infused Documented By: YUDITH Co-signed By: CASEY Titration: 03/15/23 07:11 Dose: 2,200 units/hr, 44 mls/hr Documented By: YUDITH Co-signed By: TMG Titration: 03/15/23 04:23 Dose: 2,200 units/hr, 44 mls/hr Documented By: NENA Co-signed By: MNJason Admin: 03/14/23 20:52 Dose: 2,200 units/hr, 44 mls/hr Documented By: JOSHUA Co-signed By: DENNIS Ceftriaxone Sodium 2,000 mg/ (Dextrose) 50 mls @ 100 mls/hr IV Q12H [facility]; Protocol Stop: 03/25/23 00:00 Last Infusion: 03/17/23 00:37 Dose: Infused Documented By: Admin: 03/16/23 23:21 Dose: 100 mls/hr Documented By: Infusion: 03/16/23 12:44 Dose: Infused Documented By: Admin: 03/16/23 12:12 Dose: 100 mls/hr Documented By: Infusion: 03/16/23 00:41 Dose: Infused Documented By: Admin: 03/15/23 23:29 Dose: 100 mls/hr Documented By: Infusion: 03/15/23 12:21 Dose: Infused Documented By: Admin: 03/15/23 11:51 Dose: 100 mls/hr Documented By: Infusion: 03/15/23 00:54 Dose: Infused Documented By: Admin: 03/14/23 23:38 Dose: 100 mls/hr Documented By: NENA Acyclovir Sodium 1,250 mg/ (Dextrose) 275 mls @ 250 mls/hr IV NOW ONE; Protocol Stop: 03/14/23 23:49 Last Infusion: 03/15/23 01:51 Dose: Infused Documented By: Admin: 03/14/23 23:38 Dose: 250 mls/hr Documented By: NENA Vancomycin HCl 2,750 mg/ (Sodium Chloride) 555 mls @ 180 mls/hr IV NOW ONE Stop: 03/15/23 01:48 Last Infusion: 03/15/23 03:20 Dose: Infused Documented By: Admin: 03/14/23 23:38 Dose: 180 mls/hr Documented By: NENA Sodium Chloride (Nss) 1,000 mls @ 125 mls/hr IV .Q8H [facility] Stop: 04/13/23 23:19 Last Admin: 03/15/23 01:51 Dose: Not Given Documented By: NENA Pantoprazole Sodium 40 mg/ (Syringe) 10 mls @ 5 mls/min IV DAILY@1100 [facility] Stop: 04/14/23 10:59 Last Admin: 03/15/23 11:52 Dose: 5 mls/min Documented By: YUDITH Propofol (Diprivan) 1,000 mg in 100 mls @ 0 mls/hr IV .Q0M [facility]; Protocol Stop: 03/17/23 23:19 Last Titration: 03/15/23 13:08 Dose: Infused Documented By: Titration: 03/15/23 06:20 Dose: 0 mcg/kg/min, 0 mls/hr Documented By: Admin: 03/15/23 04:25 Dose: 30 mcg/kg/min, 37.6 mls/hr Documented By: TMShaheen Co-signed By: MAL Titration: 03/15/23 04:16 Dose: Infused Documented By: TMShaheen Co-signed By: MAL Admin: 03/15/23 01:36 Dose: 30 mcg/kg/min, 37.6 mls/hr Documented By: NENA Co-signed By: FRANSISCO Titration: 03/15/23 01:36 Dose: Infused Documented By: TMShaheen Co-signed By: FRANSISCO Admin: 03/14/23 23:39 Dose: 30 mcg/kg/min, 37.6 mls/hr Documented By: TMG Co-signed By: MAL Magnesium Sulfate/Dextrose (Magnesium Sulfate / D5w) 1 gm in 100 mls @ 50 mls/hr IV Q2H [facility] Stop: 03/15/23 04:14 Last Infusion: 03/15/23 04:27 Dose: Infused Documented By: Admin: 03/15/23 02:25 Dose: 50 mls/hr Documented By: Infusion: 03/15/23 02:25 Dose: Infused Documented By: Admin: 03/15/23 00:39 Dose: 50 mls/hr Documented By: NENA Parenteral Electrolytes (Plasma-Lyte A Ph 7.4) 1,000 mls @ 115 mls/hr IV .Q8H42M [facility] Stop: 04/14/23 00:14 Last Infusion: 03/16/23 11:24 Dose: Infused Documented By: Admin: 03/16/23 08:47 Dose: 115 mls/hr Documented By: Infusion: 03/16/23 08:10 Dose: Infused Documented By: Admin: 03/15/23 23:28 Dose: 115 mls/hr Documented By: Infusion: 03/15/23 23:28 Dose: Infused Documented By: Admin: 03/15/23 15:34 Dose: 115 mls/hr Documented By: Infusion: 03/15/23 15:34 Dose: Infused Documented By: Admin: 03/15/23 07:13 Dose: 115 mls/hr Documented By: Infusion: 03/15/23 07:13 Dose: Infused Documented By: Admin: 03/15/23 00:40 Dose: 115 mls/hr Documented By: NENA Vancomycin HCl 1,000 mg/ (Sodium Chloride) 270 mls @ 200 mls/hr IV Q12H [facility] Stop: 03/25/23 07:59 Last Infusion: 03/15/23 10:13 Dose: Infused Documented By: Admin: 03/15/23 08:52 Dose: 200 mls/hr Documented By: YUDITH Phenylephrine HCl (Phenylephrine/Nss) 25 mg in 250 mls @ 62.67 mls/hr IV .Q4H [facility]; Protocol Stop: 04/14/23 00:48 Last Titration: 03/15/23 13:08 Dose: Infused Documented By: CASEY Co-signed By: YUDITH Admin: 03/15/23 11:48 Dose: Not Given Documented By: Titration: 03/15/23 06:20 Dose: 0 mcg/kg/min, 0 mls/hr Documented By: NENA Co-signed By: ARR Admin: 03/15/23 06:00 Dose: 0.2 mcg/kg/min, 25.1 mls/hr Documented By: NENA Co-signed By: FRANSISCO Titration: 03/15/23 05:28 Dose: Infused Documented By: NENA Co-signed By: GG Titration: 03/15/23 04:26 Dose: 0.2 mcg/kg/min, 25.1 mls/hr Documented By: TMG Co-signed By: MNM Titration: 03/15/23 04:23 Dose: 0.3 mcg/kg/min, 37.6 mls/hr Documented By: JUANG Co-signed By: MNM Titration: 03/15/23 01:36 Dose: 0.5 mcg/kg/min, 62.7 mls/hr Documented By: NENA Co-signed By: FRANSISCO Titration: 03/15/23 01:16 Dose: 0.7 mcg/kg/min, 87.7 mls/hr Documented By: NENA Co-signed By: FRANSISCO Admin: 03/15/23 00:58 Dose: 0.5 mcg/kg/min, 62.7 mls/hr Documented By: NENA Co-signed By: FRANSISCO Parenteral Electrolytes (Plasma-Lyte A Ph 7.4) 250 mls @ 999 mls/hr IV .Q16M ONE Stop: 03/15/23 01:04 Last Infusion: 03/15/23 01:52 Dose: Infused Documented By: Admin: 03/15/23 00:58 Dose: 999 mls/hr Documented By: NENA Sodium Phosphate 12 mmol/ (Dextrose) 254 mls @ 125 mls/hr IV ONE ONE Stop: 03/15/23 08:31 Last Infusion: 03/15/23 09:31 Dose: Infused Documented By: Admin: 03/15/23 06:32 Dose: 125 mls/hr Documented By: NENA Vancomycin HCl 1,000 mg/ (Sodium Chloride) 270 mls @ 200 mls/hr IV Q8H [facility] Stop: 03/25/23 15:59 Last Infusion: 03/17/23 02:15 Dose: Infused Documented By: Admin: 03/16/23 23:21 Dose: 200 mls/hr Documented By: Infusion: 03/16/23 19:17 Dose: Infused Documented By: Admin: 03/16/23 17:47 Dose: 200 mls/hr Documented By: Infusion: 03/16/23 10:13 Dose: Infused Documented By: Admin: 03/16/23 08:48 Dose: 200 mls/hr Documented By: Infusion: 03/16/23 00:59 Dose: Infused Documented By: Admin: 03/15/23 23:29 Dose: 200 mls/hr Documented By: Infusion: 03/15/23 16:56 Dose: Infused Documented By: Admin: 03/15/23 15:34 Dose: 200 mls/hr Documented By: CASEY Ioversol (Optiray 320 125ml) 113 ml IV ONCE ONE Stop: 03/14/23 18:59 Last Admin: 03/14/23 21:00 Dose: Not Given Documented By: JOSHUA Ioversol (Optiray 320 125ml) 113 ml IV ONCE ONE Stop: 03/14/23 18:59 Last Admin: 03/14/23 18:59 Dose: 113 ml Documented By: WAYNE Ioversol (Optiray 320 125ml) 113 ml IV ONCE ONE Stop: 03/14/23 20:06 Last Admin: 03/14/23 20:05 Dose: 113 ml Documented By: WAYNE Lorazepam (Lorazepam 1 Mg/1 Ml Syr Ed Inj Use) Confirm Administered Dose 2 mg .ROUTE .STK-MED ONE Stop: 03/14/23 17:49 Last Admin: 03/14/23 19:05 Dose: 2 mg Documented By: ACRLOS Metoprolol Tartrate (Metoprolol Tartrate 1 Mg/Ml Vial) 5 mg IV NOW STA Stop: 03/15/23 00:05 Last Admin: 03/15/23 00:39 Dose: 5 mg Documented By: NENA Midazolam HCl (Midazolam Bolus From Bag) 2 mg IV Q60M PRN PRN Reason: Sedation Stop: 04/13/23 18:02 Last Admin: 03/14/23 22:05 Dose: 2 mg Documented By: JOSHUA Co-signed By: HORACIO Midazolam HCl (Midazolam Hcl 1 Mg/Ml 2ml Vial) Confirm Administered Dose 2 mg .ROUTE .STK-MED ONE Stop: 03/15/23 18:36 Last Admin: 03/15/23 20:29 Dose: Not Given Documented By: NENA Miscellsarai (Rapid Sequence Induction Bag) Confirm Administered Dose 1 each N/A .STK-MED ONE Stop: 03/14/23 17:44 Last Admin: 03/14/23 21:00 Dose: Not Given Documented By: JOSHUA Ellison (Rapid Sequence Induction Bag) Confirm Administered Dose 1 each N/A .STK-MED ONE Stop: 03/14/23 17:46 Last Admin: 03/14/23 21:00 Dose: Not Given Documented By: JOSHUA Ellison (Stat Iv Infusion Titration Per Protocol) 1 each N/A NOW STA Stop: 03/14/23 19:34 Last Admin: 03/14/23 21:00 Dose: Not Given Documented By: JOSHUA Ellison (Icu Protocol For Hyperglycemia) 1 each N/A ACHS [facility] Stop: 03/17/23 07:29 Last Admin: 03/15/23 20:29 Dose: Not Given Documented By: Admin: 03/15/23 11:51 Dose: Not Given Documented By: Admin: 03/15/23 11:48 Dose: Not Given Documented By: YUDITH Propofol (Propofol Iv Emulsion 10 Mg/Ml 100 Ml Vial) Confirm Administered Dose 1,000 mg IV .STK-MED ONE Stop: 03/14/23 23:01 Last Admin: 03/15/23 00:25 Dose: Not Given Documented By: NENA Propofol (Propofol Bolus From Bag) 20 mg IV Q5M PRN PRN Reason: Sedation Stop: 03/17/23 23:19 Last Admin: 03/15/23 07:45 Dose: 20 mg Documented By: YUDITH Co-signed By: CASEY Description This is a 21 electrode EEG with a single channel dedicated to limited EKG. The electrodes were placed in accordance with the International 10-20 system. Interpretation REPORT: At the onstet of the EEG the patinet is in an altered mental state. The background is continuous but disorganized with loss of the normal anterior to posterior gradient. The background consist of 4-5 Hz theta actvity with some intermixed delta activity. No stage II sleep transients are seen. Photic does not induce any additional abnormalities. Clinical Correlation IMPRESSION: This is an abnormal routine EEG in a patient with altered mentation due to generalized background slowing suggesitve of a non specific encephalopathy. There is no evidence of epileptiform activity. .
[2023-03-17] MEDS: METOPROLOL TARTRATE 25 MG TAB PO SCH ×2 (08:17→20:15)
[2023-03-17] MEDS: ENOXAPARIN INJ 40 MG/0.4 ML SYR SQ SCH ×2 (08:17→19:14)
[2023-03-17] MEDS: HYDROXYCHLOROQUINE SULFATE 200 MG TAB PO SCH (08:18)
[2023-03-17] MEDS: VENLAFAXINE HCL XR 75 MG CAPXR PO SCH (08:18)
[2023-03-17] MEDS: CYANOCOBALAMIN (B-12) 500 MCG TABLET PO SCH (08:18)
--- NOTE | 2023-03-17 11:06 | Neurology Progress Note ---
Date of Service March 17, 2023 Assessment & Plan (1) Loss of consciousness: Plan 47 y/o female that presented unresponsive, initially pulseless and found to have afib with RVR, later with encephalopathy post extubation, now resolved. Repeat MRI brain with no acute findings and EEG with slowing but no epileptiform discharges. 1. Cardiology following, loop monitor vs zio patch planned, anticoagulation not recommended per cardiology at this time 2. AMS now appears resolved. 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 However, if concern for infection without clear source, consider LP. 3. Sleep Medicine outpatient follow-up Subjective Telehealth Information I performed this visit using a real-time telehealth connection between my location and the patients location ([facility]). After connecting through interactive tele-video, patient was identified by name and date of and/or wristband check.Patient (or authorized healthcare commercial pest control representative) was informed that this was a telemedicine visit and it was being conducted confidentially over secure lines. My office door was closed and no one else was present in the room with me.Patient (or authorized healthcare commercial pest control representative) provided consent to proceed with the visit, expressed an understanding of privacy and security of the telemedicine visit, and gave permission to have a hospital commercial pest control representative in the room in order to assist with the visit and to conduct portions of the visit, as needed. I informed the patient (or authorized healthcare commercial pest control representative) that I reviewed their record and presented the opportunity for them to ask any questions regarding the visit today. The patient agreed to participate. Pt states that her last memory prior to coming into the hospital was shipping with her grandkids and the next thing she knew she woke up in the hospital. She states that feels great today and has no complaints. Physical Exam AAO X 3 No aphasia or dysarthria EOMI, no nystagmus VFF grossly intact No facial asymmetry Tongue protrudes midline Motor: Moves all four extremities antgravity equally Sensation: Intact to light touch throughout Cerebellar: FTN intact Results & Data Vital Signs (Past 12 Hours) Vital Signs Temp Pulse Resp BP Pulse Ox O2 Del Method 03/17/23 09:00 37.5 C 91 H 17 03/17/23 08:00 146/78 H 03/17/23 08:00 37.4 C 77 14 03/17/23 08:00 36.8 C 03/17/23 07:00 37.4 C 68 15 97 Room Air 03/17/23 06:00 37.3 C 69 14 95 03/17/23 05:00 37.3 C 77 15 91 03/17/23 04:00 37.4 C 71 18 93 03/17/23 03:00 37.4 C 68 16 91 03/17/23 02:00 37.4 C 67 19 93 03/17/23 01:30 69 03/17/23 01:00 37.4 C 68 15 95 03/17/23 00:25 37.6 C H 73 20 96 03/17/23 00:25 149/84 H 03/17/23 00:17 75 21 97 03/16/23 23:00 37.5 C 66 16 95 Laboratory Results WBc 8.23, HGB 10.8 HCT 33.5, Plts 236, ABG ph 7.41, pCO2 42, pO2 83, HCO3 27, NA 139, Potassium 3.8, Chloride 108, Carbon dioxide 26, BUN 14, Creatinine 1.08. Glucose 108, Calcium 8.7, Phosphorous 3.4, Magnesium 2.1, Total bilirubin 0.5, AST 26, ALT 48, Alkaline phosphatase 55, albumin 3.5, procalcitonin <0.[address] head 03/14: No acute intracranial abnormality CT Cspine 03/14:No acute traumatic abnormality. CTA head/neck 03/14: No significant stenosis, occlusion, or dissection. Mildly prominent cervical lymph nodes are nonspecific. MRI brain 03/14:No acute findings in the head/brain. MRI brain 03/16:No evidence of acute intracranial abnormality. EEG: This is an abnormal routine EEG in a patient with altered mentation due to generalized background slowing suggesitve of a non specific encephalopathy. There is no evidence of epileptiform activity.
[2023-03-17 12:19] LABS: Ferritin 18.5 ng/ml (8-388)
[2023-03-17 13:13] LABS: Folate (Folic Acid),Ser orPlas 14.32 ng/ml (>5.38)
--- NOTE | 2023-03-17 14:57 | Hospitalist Progress Note ---
Date of Service March 17, 2023 Assessment & Plan (1) Respiratory failure requiring intubation: Plan: Ms Sol is a 47-year-old woman with past medical history significant for GERD, morbid obesity, CKD stage III, sleep apnea, generalized osteoarthritis, vitamin B12 deficiency, anxiety, lymphedema who presented to [facility] with unresponsive episode on 03/14. Patient reportedly suddenly collapsed, witnessed by daughter and grandchildren. EMS reported patient to be cyanotic on scene and CPR initiated prehospital. Airway access was not secured prehospital; however, upon arrival to ED she was intubated and mechanically ventilated. Rhythm upon arrival was atrial fibrillation with RVR. Eitology of collapse has yet to be elucidated. Urine and blood cultures with no growth todate, procal WNL. No gap. Acidotic on abg initially with corresponding lactate to 4 TSH 8.626 Troponin uptrending to 142 in the setting of atrial fibrillation and arrest, with subsequent down trend Mild transaminitis with no obstructive characteristics CTA mildy prominent cervical lymph nodes, densities in lung apices; CXR enlarged heart, vascular congestion Hepatomegaly -Fatty liver present 01/23 On 03/17 patient is much more alert and oriented--family reports she is at [facility] entirely. MRI did not show anoxic injury. Neurology evaluated patient and feels no inclination for LP given recovery, suspecting encephalopathy on eeg likely related to drug effect given sedation. Temperatures taken rectally and seem stable, no clinical evidence of infection. Discontinued abx and will see how patient tolerates. Low threshold for repeat infectious work up. #Acute encephalopathy *improved -Family reports increased confusion from baseline, concern for anoxic injury No notable CO2 retention noted ; MRI negative Neurology no inclination for LP CTM #Microcytic anemia -Anemia labs, iron, b12, folate -Ferritin 18.5, 34 iron -B12 249 -folate 14.32 -Start iron supplementation #Acute hypoxic, hypercarbic respiratory failure, unclear etiology, s/p mechanical ventilation [extubated 03/15] #Sudden collapse #Seizure like activity -Reportedly shaking episode noted after collapse -Currently s/p intubation upon arrival to ED on 03/14 Initial exams without response to painful/verbal stimuli CT head, CTA head and neck, cervical spine CT, CTA chest, CT abdomen pelvis are unremarkable Labs not suggestive of clear source outside of except for mild transaminitis and elevated lactic acid. Extubated 03/15/2023, Transferred from ICU status on 03/15 Telestroke contacted 03/14: no AED at this time, if EEG with focal discharges consider LP, if concern for recurrent seizure may warrant LTM EEG -No concerns for seizure -EEG pending Continue broad spectrum antibiotics, covering encephalitis/meningitis given reported history on admission initially: CTX, Vanc, Acyclovir started 03/14 -Infectious work up NGTD, will likely discontinue abx 03/17 and monitor for 24 hours #QTc Prolongation 588 03/15, but improved to baseline 486 -CTM #Atrial Fibrillation with rapid ventricular rate *improved #Type II Myocardial injury in setting of hypoxic, tachycardia, sudden collapse/CPR Multiple contributing factors to troponin elevation EKG this am with criteria for LVH, abnormal overall, notably poor R wave progression (WV or related to LVH?) Continue to trend troponin to peak ECHO ordered Converted from a fib, cardizem discontinued Cardiology consult, appreciate recommendations -Metoprolol 25mg BID -Zio patch at d/c -low [id number], 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 AC unless a fib returns -Monitor on tele, DC heparin, transition to lovenox 40mg bid 2/2 habitus -Lipid panel LDL 48, total 122 #Hepatic steatosis #Transaminitis -Improving, likely multifactorial, morbid obesity/a fib rvr/acute illness, no RUQ concerns -Trend CMP #Leukocytosis potentially reactive 2/2 CPR/hypoxia/multifactorial Infectious work up pending Held abx, monitor fever curve #Hypophosphatemia *resolved iso respiratory failure Replace as needed #Tumid Lupus Erythematosus -Follows Dr Bolaños, reported mild, followed Derm historically as manifestation predominately cutaneous -Home regimen: hydroxychloroquine 400mg qam #Obstructive sleep apnea/Obesity Hypoventilation syndrome #Morbid obesity -BMI 69.8, home cpap Continue home CPAP, consider overnight pulse ox for bipap needs? #Chronic lymphedema Participates with lymphedema therapy, compression stockings #CKD stage III, stable CR 1.2 and improving, baseline 0.8-0.9 At baseline #Abnormal TFTS -Should repeat in 6-8 weeks with PCP Diet: as tolerated DVT: lovenox HOB 30degrees Exubated Gooden catheter in place 03/14 Deescalte abx contingent upon infectious work up Disposition PCU Full code Admission and Anticipated Discharge Date Admission Date: March 14, 2023 Subjective Patient much more lucid this morning. Describes feeling better but scared to ambulate and have event recur Denies any chest pain, palpitations, or other acute concerns States that she isn't sure still over what happened and denies any acute symptoms, fevers/chills/neck rigidity, urinary concerns, bowel movement issues Temperatures at 99-100 C rectal temperatures documented Physical Exam Constitutional: WD/WN, vitals as above Respiratory: difficult to appreciate 2/2 habitus Cardiovascular: difficult to appreciate 2/2 habitus Results & Data Results & Data Vital Signs (Past 12 Hours) Vital Signs Temp Pulse Resp BP Pulse Ox O2 Del Method 03/17/23 12:00 37.8 C H 76 17 95 Room Air 03/17/23 12:00 36.9 C 03/17/23 11:00 37.6 C H 67 22 03/17/23 10:00 37.6 C H 73 25 H 03/17/23 09:00 37.5 C 91 H 17 03/17/23 08:00 146/78 H 03/17/23 08:00 37.4 C 77 14 03/17/23 08:00 36.8 C 03/17/23 07:00 37.4 C 68 15 97 Room Air 03/17/23 06:00 37.3 C 69 14 95 03/17/23 05:00 37.3 C 77 15 91 03/17/23 04:00 37.4 C 71 18 93 03/17/23 03:00 37.4 C 68 16 91 Laboratory Results Short CBC 03/17/23 Range/Units 04:06 WBC 8.23 (4.8-10.8) K/ul Hgb 10.8 L (12.0-16.0) g/dl Hct 33.5 L (37.0-47.0) % Plt Count 236 (130-400) K/uL BMP 03/16/23 03/17/23 04:21 04:06 Sodium 137 139 Potassium 3.8 3.8 Chloride 107 108 H Carbon Dioxide 24 26 BUN 14 14 Creatinine 0.96 1.08 Glucose 120 H 108 H Calcium 8.0 L 8.7 Liver Function 03/16/23 03/17/23 Range/Units 04:21 04:06 Total Bilirubin 0.5 0.5 (0.2-1.0) mg/dl Direct Bilirubin 0.1 0.1 (0-0.2) mg/dl AST 40 H 25 (13-39) U/L ALT 57 H 48 (7-52) U/L Alkaline Phosphatase 58 55 (34-104) U/L Albumin 3.5 3.5 (3.4-5.0) gm/dl Medications Administered Home Medications Medication Instructions Recorded Confirmed Last Taken lorazepam 0.5 mg tablet 0.5 mg PO DAILY PRN Anxiety 10/04/20 03/14/23 Unknown Oxygen Home #1 ea 10/09/20 01/23/23 Unknown hydroxychloroquine 200 mg tablet 400 mg PO QAM 12/19/22 03/14/23 12/25/22 (Plaquenil) montelukast 10 mg tablet 10 mg PO QAM 12/19/22 03/14/23 12/25/22 (Singulair) venlafaxine 75 mg capsule,extended 75 mg PO QAM 01/23/23 03/14/23 Unknown release 24 hr albuterol sulfate 90 mcg/actuation 2 puff inhalation Q4H PRN Wheezing 03/14/23 03/14/23 Unknown aerosol inhaler cyanocobalamin (vitamin B-12) 1,000 mcg sublingual QAM 03/14/23 03/14/23 Unknown 1,000 mcg sublingual tablet omeprazole 40 mg capsule,delayed 40 mg PO DAILYBB 03/14/23 03/14/23 Unknown release Active Medications Generic Name Dose Route Start Last Admin Trade Name Mihaiq PRN Reason Stop Dose Admin Cyanocobalamin 1,000 mcg 03/16/23 09:00 03/17/23 08:18 Cyanocobalamin (B-12) 500 Mcg Tablet PO 04/15/23 08:59 1,000 mcg QAM WILMER Administration Enoxaparin Sodium 40 mg 03/16/23 07:00 03/17/23 08:17 Enoxaparin Inj 40 Mg/0.4 Ml Syr SQ 04/15/23 06:59 40 mg Q12H WILMER Administration Hydroxychloroquine Sulfate 400 mg 03/16/23 09:00 03/17/23 08:18 Hydroxychloroquine Sulfate 200 Mg Tab PO 04/15/23 08:59 400 mg QAM WILMER Administration Metoprolol Tartrate 25 mg 03/16/23 09:00 03/17/23 08:17 Metoprolol Tartrate 25 Mg Tab PO 04/15/23 08:59 25 mg BID WILMER Administration Pantoprazole Sodium 40 mg 03/16/23 07:30 03/17/23 06:15 Pantoprazole 40 Mg Tab PO 04/15/23 07:29 40 mg DAILYBB WILMER Administration Protocol Venlafaxine HCl 75 mg 03/16/23 09:00 03/17/23 08:18 Venlafaxine Hcl Xr 75 Mg Capxr PO 04/15/23 08:59 75 mg QAM WILMER Administration
[2023-03-17] MEDS ORDERED: lisinopril 5 MG TAB PO ONE (15:00)
--- NOTE | 2023-03-17 15:13 | Cardiology Progress Note ---
Date of Service March 17, 2023 Assessment & Plan (1) Atrial fibrillation: Plan: In review of outside records through [employer] system there is no prior documented AF; although given her body habitus and presumed sleep apnea she is at risk for having AF. AF RVR noted on presentation ,but would be unusual For atrial fibrillation and of itself to be the cause of the shortness of breath and loss of postural tone episode. Continue metoprolol tartrate 25mg BID Her [id number] score is low, with only risk factor of female sex. Continue to monitor off of anticoagulation. Insertion of the loop recorder would be reasonable, [place] which would prove to be a barrier with monitoring. If she used the mobile phone application and her home WiFi , that may allow for appropriate monitoring. Another option would be to start with a Zio Patch. Will discuss monitoring options with pt in more detail. (2) Prolonged QT interval: Plan: Pt's QTc is back to baseline on today's ECG (486ms) she is on on QT prolonged agents at home (Plaquenil and venlafaxine) which have been continued with caution. (3) Syncope: Plan: As noted above. (4) Encephalopathy: Plan: MRI of brain without acute abnormality. Non specific findings on EEG. Pt's mental status is appropriate now, however she does not remember any of the events leading up to her hospital presentation. (5) Respiratory failure requiring intubation: Plan: Holding further diuretics. (6) Metabolic acidosis: (7) Respiratory acidosis: (8) Lactic acidosis: (9) Elevated liver enzymes: (10) Elevated alpha fetoprotein: (11) Coronavirus infection: Plan: Pt with mild ongoing fever. No complaints suggestive of a viral illness otherwise. Antibiotics previously stopped. LATONIA Gooden . Admission and Anticipated Discharge Date Admission Date: March 14, 2023 Subjective Pt seen in cardiology follow up . Denies cardiac complaint. Eager for discharge. Telemetry reveals SR in the 60s to 70s. No additional atrial fibrillation since03/15/23. Physical Exam Constitutional: WD/WN, vitals as above + obese Respiratory: normal respiratory effort, lungs clear to auscultation Cardiovascular: RRR, no murmur, no edema Extremities: no edema Chronic lymphedema Neurologic: PERRL, EOMI, accommodation nl, no face palsy, no dysarthria Lymphatic: Gooden catheter in place draining clear yellow urine. Results & Data Vital Signs (Past 12 Hours) Vital Signs Temp Pulse Resp BP Pulse Ox O2 Del Method 03/17/23 12:00 37.8 C H 76 17 95 Room Air 03/17/23 12:00 36.9 C 03/17/23 11:00 37.6 C H 67 22 03/17/23 10:00 37.6 C H 73 25 H 03/17/23 09:00 37.5 C 91 H 17 03/17/23 08:00 146/78 H 03/17/23 08:00 37.4 C 77 14 03/17/23 08:00 36.8 C 03/17/23 07:00 37.4 C 68 15 97 Room Air 03/17/23 06:00 37.3 C 69 14 95 03/17/23 05:00 37.3 C 77 15 91 03/17/23 04:00 37.4 C 71 18 93 Laboratory Results Cardiac Enzymes 03/16/23 03/17/23 Range/Units 04:21 04:06 AST 40 H 25 (13-39) U/L Lipids 03/16/23 Range/Units 04:21 Triglycerides 73 (0-150) mg/dl Cholesterol 122 (0-200) mg/dl HDL Cholesterol 59 mg/dl Cholesterol/HDL Ratio 2.1 (0-5) CBC 03/17/23 Range/Units 04:06 WBC 8.23 (4.8-10.8) K/ul RBC 4.30 (4.20-5.40) M/uL Hgb 10.8 L (12.0-16.0) g/dl Hct 33.5 L (37.0-47.0) % Plt Count 236 (130-400) K/uL Neut # (Auto) 5.50 (1.40-6.50) K/uL Lymph # (Auto) 1.83 (1.20-3.40) K/uL Stone # (Auto) 0.78 H (0.11-0.59) K/uL Eos # (Auto) 0.05 (0.00-0.50) K/uL Baso # (Auto) 0.03 (0.00-0.20) K/uL Comprehensive Metabolic Panel 03/16/23 03/17/23 Range/Units 04:21 04:06 Sodium 137 139 (136-145) mmol/L Potassium 3.8 3.8 (3.5-5.1) mmol/L Chloride 107 108 H (98-107) mmol/L Carbon Dioxide 24 26 (21-32) mmol/L BUN 14 14 (6-23) mg/dl Creatinine 0.96 1.08 (0.6-1.2) mg/dl Glucose 120 H 108 H (70-99(Fasting)) mg/dl Calcium 8.0 L 8.7 (8.6-10.3) mg/dl Direct Bilirubin 0.1 0.1 (0-0.2) mg/dl AST 40 H 25 (13-39) U/L ALT 57 H 48 (7-52) U/L Alkaline Phosphatase 58 55 (34-104) U/L Total Protein 6.4 6.4 (6.0-8.3) gm/dl Albumin 3.5 3.5 (3.4-5.0) gm/dl Intake and Output 03/17/23 03/17/23 03/17/23 06:59 14:59 22:59 Intake Total 320 / 3697.517 Output Total 1075 / 3925 700 / 700 Balance -755 / -227.483 -700 / -700 Intake: IV 320 / 2497.517 Vancomycin HCl 1,000 mg In 270 / 810 Sodium Chloride 0.9% 250 ml @ 200 mls/hr IV Q8H WILMER Rx#: [id number] [id number] SODIUM 2,000 mg In 50 / 100 Dextrose 5 % Mini-B 50 ml @ 100 mls/hr IV Q12H WILMER Rx#: [id number] Output: Urine Amount (Catheter) 1075 / 3925 700 / 700 Temp Sensing Gooden 1075 / 3925 700 / 700 # Bowel Movements 0 / 0 Other: Weight 206.747 kg Weight Measurement Method Built in [facility]
[2023-03-17 18:26] LABS: Adenovirus PCR Not Detected (NotDetected); Bordetella parapertussis PCR Not Detected (NotDetected); Bordetella pertussis PCR Not Detected (NotDetected); Chlamydia pneumoniae PCR Not Detected (NotDetected); Coronavirus 229E PCR Not Detected (NotDetected); Coronavirus CoV-2 (COVID19)PCR Not Detected (NotDetected); Coronavirus HKU1 PCR Not Detected (NotDetected); Coronavirus NL63 PCR Not Detected (NotDetected); Coronavirus OC43PCR Not Detected (NotDetected); Human Metapneumovirus PCR Not Detected (NotDetected); Influenza A PCR Not Detected (NotDetected); Influenza B PCR Not Detected (NotDetected); Mycoplasma pneumoniae PCR Not Detected (NotDetected); Parainfluenza Virus 1 PCR Not Detected (NotDetected); Parainfluenza Virus 2 PCR Not Detected (NotDetected); Parainfluenza Virus 3 PCR Not Detected (NotDetected); Parainfluenza Virus 4 PCR Not Detected (NotDetected); Respiratory Syncytial VirusPCR Not Detected (NotDetected); Rhinovirus/Enterovirus PCR Not Detected (NotDetected)
[2023-03-17] MEDS ORDERED: LORazepam 0.25 MG in SYRINGE 0.125 ML IV STA (19:56)
[2023-03-18 04:58] LABS: Hemoglobin 10.6 g/dl (12.0-16.0); Mean Corpuscular Hemoglobin 24.9 pg (25.0-34.0); Mean Corpuscular Hgb Conc 31.2 g/dL (32.0-36.0); Mean Corpuscular Volume 79.8 fL (80.0-100.0); Mean Platelet Volume 9.9 fL (9.4-12.4); Platelet Count 218 K/uL (130-400); RDW Coefficient of Variation 14.6 % (11.5-14.5); RDW Standard Deviation 42.3 fL (36.4-46.3); Red Blood Count 4.26 M/uL (4.20-5.40); White Blood Count 8.22 K/ul (4.8-10.8)
[2023-03-18 05:12] LABS: BUN Creatinine Ratio 10.9 (10-20); Calcium 8.7 mg/dl (8.6-10.3); Creatinine Clr Calc Pharmacy 130.2 ml/min; Est GFR (African American) 76.2 ml/min; Est GFR (Non-African American) 65.8 ml/min; Potassium 3.7 mmol/L (3.5-5.1)
[2023-03-18] MEDS: PANTOprazole 40 MG TAB PO SCH (05:55)
[2023-03-18] MEDS: CYANOCOBALAMIN (B-12) 500 MCG TABLET PO SCH (07:35)
[2023-03-18] MEDS: ENOXAPARIN INJ 40 MG/0.4 ML SYR SQ SCH (07:35)
[2023-03-18] MEDS: HYDROXYCHLOROQUINE SULFATE 200 MG TAB PO SCH (07:36)
[2023-03-18] MEDS: VENLAFAXINE HCL XR 75 MG CAPXR PO SCH (07:37)
[2023-03-18] MEDS: METOPROLOL TARTRATE 25 MG TAB PO SCH (07:37)
[2023-03-18 07:45] VITALS: BP 131/79; PULSE 66; RESP 18; TEMP 98; O2SAT 96
[2023-03-18] MEDS ORDERED: lisinopril 5 MG TAB PO SCH (09:00)
[2023-03-18] MEDS ORDERED: lisinopril 10 MG TAB PO SCH (09:00)
[2023-03-18] MEDS ORDERED: FERROUS SULFATE 325 MG TAB PO SCH (09:00)
--- NOTE | 2023-03-18 11:04 | Discharge Summary ---
Discharge Summary Date of Service March 18, 2023 Notes For Next Care Provider -Follow up TFTs in 6-8 weeks post d/c -Follow up LFTs iso hepatic steatosis -Follow up iron deficiency anemia Medication Changes From Visit Started Lisinopril 10mg daily Started Metoprolol 25mg BID Started Ferrous Sulfate 325mg daily Admission HPI Per Admitting Provider 47-year-old female with past medical history significant for GERD,, morbid obesity, CKD stage III, sleep apnea, generalized osteoarthritis, vitamin B12 deficiency, anxiety, lymphedema presents with unresponsive episode. Apparently patient was with her daughter and grandkids at [employer] when she was sitting on the bench and suddenly she collapsed. Daughter noticed that she was gasping for breath and also seemed shaking. Initially daughter could feel the pulse. When EMS came and turned her around she seemed cyanotic. She was placed on monitor and had CPR. Seems no shocks were delivered. EMS attempted to intubate in the field but were unsuccessful. She has a left IO placed. She was brought into the ER. Currently s/p intubation. She also found in rapid A-fib. Currently on Cardizem drip. POC pH is 7.24. pCO2 is 49. Labs unremarkable except for elevated lactic acid 3.1. Mild transaminitis. Troponin is okay. BNP okay. Urine drug screen negative. Imaging studies with CTA head and neck, CT head, cervical spine CT, CTA chest, CT abdomen pelvis with unremarkable. Patient was also started IV heparin. Daughter and states patient was doing fine before this episode. She was ambulating okay. No recent fevers. No cough. No complaint of chest pain or dizziness. No nausea ,vomiting or diarrhea. Past medical history. As mentioned above Past surgical history. None. Social history. . No smoking. Alcohol rarely. No drug use. Family history. Daughter has ADHD. Anxiety disorder. Learning disability. Brother has diabetes. MO. Mother has diabetes. Heart disorder. Hypertension. Alzheimer's. Sister has obesity. Brother had stroke. Paternal Grandfather had stroke. Admission Exam Per Admitting Provider General-s/p intubated. Head- atraumatic Eyes- PERRL Neck- no JVD, Lungs- clear to auscultation no wheezing or crackles. Heart- irregular rhythm; tachycardia no murmur, no gallop. Abdomen- normal bowel sounds, soft, no distension. Extremities- b/l lower extremity lymphedema present. No erythema seen. Neuro- s/p intubation. not responding to painful stimuli. Principal Dx & Hospital Course #1 = Principal Diagnosis (1) Respiratory failure requiring intubation: Ms Sol is a 47-year-old woman with past medical history significant for GERD, morbid obesity, CKD stage III, sleep apnea, generalized osteoarthritis, vitamin B12 deficiency, anxiety, lymphedema who presented to [facility] with unresponsive episode on 03/14. Patient reportedly suddenly collapsed, witnessed by daughter and grandchildren. EMS reported patient to be cyanotic on scene and CPR initiated prehospital. Airway access was not secured prehospital; however, upon arrival to ED she was intubated and mechanically ventilated. Rhythm upon arrival was atrial fibrillation with RVR. Eitology of collapse has yet to be elucidated. Urine and blood cultures with no growth todate, procal WNL. No gap. Acidotic on abg initially with corresponding lactate to 4 TSH 8.626 Troponin uptrending to 142 in the setting of atrial fibrillation and arrest, with subsequent down trend Mild transaminitis with no obstructive characteristics CTA mildy prominent cervical lymph nodes, densities in lung apices; CXR enlarged heart, vascular congestion Hepatomegaly -Fatty liver present 01/23 On 03/17 patient is much more alert and oriented--family reports she is at baseline entirely. MRI did not show anoxic injury. Neurology evaluated patient and feels no inclination for LP given recovery, suspecting encephalopathy on eeg likely related to drug effect given sedation. Temperatures taken rectally and seem stable, no clinical evidence of infection. Discontinued abx on 03/17 and stable off of antibiotics. Telemetry without any further arrhythmias. Encephalopathy resolved. Biofire negative. Patient declined loop recorder. Planning for OP Zio patch placement. On day of discharge, mental status at baseline. Denied any chest pain. Reports eagerness to get home. Patient counseled on lifestyle changes while admitted, discussing that habitus is limiting many different imaging modalities and interventions like cath. Patient receptive to discussion and notes that she is willing and wants to "makes changes" because the sudden collapse was frightening. #Acute encephalopathy *resolved -Family reports increased confusion from baseline, concern for anoxic injury No notable CO2 retention noted ; MRI negative;Neurology no inclination for LP #Microcytic anemia, iron deficiency -Anemia labs, iron, b12, folate -Ferritin 18.5, 34 iron -B12 249 -folate 14.32 -Continue iron supplementation, follow up PCP #Acute hypoxic, hypercarbic respiratory failure, unclear etiology, s/p mechanical ventilation [extubated 03/15] *resolved #Sudden collapse #Seizure like activity -Reportedly shaking episode noted after collapse -Currently s/p intubation upon arrival to ED on 03/14 Initial exams without response to painful/verbal stimuli CT head, CTA head and neck, cervical spine CT, CTA chest, CT abdomen pelvis are unremarkable Labs not suggestive of clear source outside of except for mild transaminitis and elevated lactic acid. Extubated 03/15/2023, Transferred from ICU status on 03/15 Telestroke contacted 03/14: no AED at this time, if EEG with focal discharges consider LP, if concern for recurrent seizure may warrant LTM EEG -No concerns for seizure -EEG encephalopathic 2/2 sedation Continue broad spectrum antibiotics, covering encephalitis/meningitis given reported history on admission initially: CTX, Vanc, Acyclovir started 03/14 -Infectious work up NGTD, biofire negative - Follow up cardiology for zio patch #QTc Prolongation 588 03/15, but improved to baseline 486 #Atrial Fibrillation with rapid ventricular rate *improved #Type II Myocardial injury in setting of hypoxic, tachycardia, sudden collapse/CPR Multiple contributing factors to troponin elevation EKG this am with criteria for LVH, abnormal overall, notably poor R wave progression ([place] or related to LVH?) Continue to trend troponin to peak ECHO ordered Converted from a fib, cardizem discontinued Cardiology consult, appreciate recommendations -Continue Metoprolol 25mg BID -Zio patch per Cardiology -low [id number], no indication for fpc AC unless a fib returns -Lipid panel LDL 48, total 122, no statin #Hypertension -Started lisinopril 10mg #Hepatic steatosis #Transaminitis -Improving, likely multifactorial, morbid obesity/a fib rvr/acute illness, no RUQ concerns -Lifestyle modification, follow up with PCP #Leukocytosis *resolved potentially reactive 2/2 CPR/hypoxia/multifactorial Infectious work up negative #Hypophosphatemia *resolved iso respiratory failure Replace as needed #Tumid Lupus Erythematosus -Follows Dr Bolaños, reported mild, followed Derm historically as manifestation predominately cutaneous -Home regimen: hydroxychloroquine 400mg qam, monitor QTc #Obstructive sleep apnea/Obesity Hypoventilation syndrome #Morbid obesity -BMI 69.8, home cpap Continue home CPAP #Chronic lymphedema Participates with lymphedema therapy, compression stockings #CKD stage III, stable CR 1.2 and improving, baseline 0.8-0.9 At baseline #Abnormal TFTS -Should repeat in 6-8 weeks with PCP Discharge Exam Constitutional WD/WN, vitals as above Respiratory difficult to appreciate 2/2 habitus, diminished, but on room air breathing comfortably Cardiovascular RRR, no murmur, no edema Gastrointestinal (Abdomen) normal bowel sounds, soft, nontender, no hepatosplenomegaly Musculoskeletal diffuse lymphedema, no skin changes, no lesions Updated Medication List Medication Instructions Recorded Confirmed Type lorazepam 0.5 mg tablet 0.5 mg PO DAILY PRN Anxiety 10/04/20 03/14/23 History hydroxychloroquine 200 mg tablet 400 mg PO QAM 12/19/22 03/14/23 History (Plaquenil) montelukast 10 mg tablet 10 mg PO QAM 12/19/22 03/14/23 History (Singulair) venlafaxine 75 mg capsule,extended 75 mg PO QAM 01/23/23 03/14/23 History release 24 hr albuterol sulfate 90 mcg/actuation 2 puff inhalation Q4H PRN Wheezing 03/14/23 03/14/23 History aerosol inhaler cyanocobalamin (vitamin B-12) 1,000 mcg sublingual QAM 03/14/23 03/14/23 History 1,000 mcg sublingual tablet omeprazole 40 mg capsule,delayed 40 mg PO DAILYBB 03/14/23 03/14/23 History release ferrous sulfate 325 mg (65 mg 325 mg PO QAM #30 tabs 03/18/23 Rx iron) tablet,delayed release lisinopril 10 mg tablet 10 mg PO QAM #30 tabs 03/18/23 Rx metoprolol tartrate 25 mg tablet 25 mg PO BID #60 tabs 03/18/23 Rx Hospital Stay Data Consultations 03/14/23 19:58 ED Decision to Admit Stat 03/14/23 20:01 Consult [employer] Stat 03/14/23 23:20 Consult [employer] Therapist Routine 03/15/23 08:00 Consult Cardiology Routine 03/15/23 13:10 Consult Neurology Routine Diagnostic Imagining Performed 03/14/23 17:54 CT angio chest PE protocol Stat CT head/brain wo con Stat 03/14/23 18:03 CT abd pelvis IV con only Stat 03/14/23 18:31 CT cervical spine wo con Stat 03/14/23 19:52 CT angio head w con Stat CT angio neck with con Stat 03/14/23 20:45 MRI Brain [MR brain wo/w con] Stat 03/16/23 16:32 MRI Brain [MR brain wo con] Routine Pending Results Patient Have Any Pending Studies at Discharge: No Discharge Instructions Given to Patient (Per Discharging Provider) You were admitted for concerns of cardiac arrest, or your heart stopping. During your admission, there were no clear causes for your arrest. Your heart was found to be in an abnormal rhythm call "atrial fibrillation" Though this rhythm, "a fib" can cause significant symptoms in may individuals, it is rarely the cause for sudden collapse. For this reason, it is imperative you follow up with cardiology for close monitoring and obtaining a monitor to assess your heart rate/rhythm. You were noted to have hypertension/ high blood pressure during this admission. Here is the following blood pressure medication you were started on: Lisinopril 10mg daily To control your heart rate, you were started on the following: Metoprolol 25mg two times daily You were noted to have iron deficiency anemia (low blood count related to low iron stores): Iron 325mg daily Please follow up with your PCP and Cardiology to ensure close monitoring given your recent cardiac arrest and exploration of possible causes. Total Time Total Time Spent Total Time Spent (In Minutes): 45
--- NOTE | 2023-03-18 11:23 | Cardiology Progress Note ---
Date of Service March 18, 2023 Assessment & Plan (1) Atrial fibrillation: Plan: In review of outside records through [employer] system there is no prior documented AF; although given her body habitus and presumed sleep apnea she is at risk for having AF. AF RVR noted on presentation ,but would be unusual For atrial fibrillation and of itself to be the cause of the shortness of breath and loss of postural tone episode. Continue metoprolol tartrate 25mg BID Her [id number] score is low, with only risk factor of female sex. Continue to monitor off of anticoagulation. (2) Prolonged QT interval: Plan: Pt's QTc is back to baseline on today's ECG (486ms) she is on on QT prolonged agents at home (Plaquenil and venlafaxine) which have been continued with caution. (3) Syncope: Plan: As noted above. Pt declines loop recorder at present and favors starting with 2 week Zio Patch. Will arrange for this to be placed at [facility] after discharge. Zio order entered in [employer]. (4) Encephalopathy: Plan: MRI of brain without acute abnormality. Non specific findings on EEG. Pt's mental status is appropriate now, however she does not remember any of the events leading up to her hospital presentation. (5) Respiratory failure requiring intubation: Plan: Holding further diuretics. (6) Coronavirus infection: Plan: Pt with mild ongoing fever. No complaints suggestive of a viral illness otherwise. Antibiotics previously stopped. LATONIA Gooden . Plan --requested cardiology follow up visit, for after Zio result available. Admission and Anticipated Discharge Date Admission Date: March 14, 2023 Subjective Pt seen in cardiology follow up . Denies cardiac complaint. Telemetry reveals SR in the 60s . Gooden catheter removed on 03/17/23. Afrbrile. Physical Exam Constitutional: WD/WN, vitals as above + obese Respiratory: normal respiratory effort, lungs clear to auscultation Cardiovascular: RRR, no murmur, no edema Extremities: no edema Neurologic: PERRL, EOMI, accommodation nl, no face palsy, no dysarthria Results & Data Vital Signs (Past 12 Hours) Vital Signs Temp Pulse Pulse Resp BP BP Pulse Ox 03/18/23 09:41 36.6 C 66 18 131/79 96 03/18/23 07:42 36.6 C 66 18 131/79 96 03/18/23 03:30 165/96 H 03/18/23 00:46 63 O2 Del Method 03/18/23 09:41 03/18/23 07:42 Room Air 03/18/23 03:30 03/18/23 00:46 Laboratory Results CBC 03/18/23 Range/Units 04:31 WBC 8.22 (4.8-10.8) K/ul RBC 4.26 (4.20-5.40) M/uL Hgb 10.6 L (12.0-16.0) g/dl Hct 34.0 L (37.0-47.0) % Plt Count 218 (130-400) K/uL Comprehensive Metabolic Panel 03/18/23 Range/Units 04:31 Sodium 136 (136-145) mmol/L Potassium 3.7 (3.5-5.1) mmol/L Chloride 105 (98-107) mmol/L Carbon Dioxide 27 (21-32) mmol/L BUN 11 (6-23) mg/dl Creatinine 1.01 (0.6-1.2) mg/dl Glucose 101 H (70-99(Fasting)) mg/dl Calcium 8.7 (8.6-10.3) mg/dl Intake and Output 03/17/23 03/18/23 03/18/23 22:59 06:59 14:59 Intake Total 830 / 1170 340 / 1170 Output Total 1150 / 2750 900 / 2750 Balance -320 / -1580 -560 / -1580 Intake: Oral 830 / 1170 340 / 1170 Output: Urine 600 / 600 Urine Amount (Catheter) 550 / 2150 900 / 2150 Temp Sensing Gooden 550 / 2150 900 / 2150 Other: Weight 206.747 kg Patient Weight 03/19/23 06:59 Weight 206.747 kg (1) Atrial fibrillation Atrial fibrillation type: paroxysmal Qualified Code(s): I48.0 - Paroxysmal atrial fibrillation
== END 2023-03-18 12:15 | disposition home or self-care (01) | DRG 208 ==
LOC: ED 17:37 → 1E 20:50